=== PATIENT | male | born 1950 | race Caucasian/White ===

== ENCOUNTER → 2016-07-13 | Outpatient (CLI) | payer MEDICARE, OTHER ==
[~2016-07-13] MED LIST: FURO20TA PO; HYDR7.5T PO; LEVO200T46 PO; OME20GT; POTA20TA24 PO; PREDPOW63 PO; RIVA20TA PO; [UNRECOGNIZED DRUG - OTHER] PO
[2016-07-13 08:40] LABS: Basophils # (auto) 0 uL; Eosinophils # (auto) 0 uL; Eosinophils % (auto) 0.1 % (0.0-7.0); Hematocrit 35.3 % (41.0-53.0); Hemoglobin 11.6 g/dL (13.5-17.5); Lymphocytes # (auto) 0.9 uL; Lymphocytes % (auto) 8.2 % (10.0-50.0); Mean Corpuscular Hemoglobin 27.3 pg (28.0-32.0); Mean Corpuscular Hgb Conc. 32.8 g/dL (32.0-36.0); Mean Corpuscular Volume 83.1 fL (80.0-100.0); Mean Platelet Volume 7.4 fL (7.4-10.4); Monocytes # (auto) 0.4 uL; Monocytes % (auto) 3.9 % (0.0-12.0); Neutrophils # (auto) 9.2 uL; Neutrophils % (auto) 87.8 % (37.0-80.0); Platelet Count (auto) 297 10^3/uL (140-450); Red Cell Distribution Width 14.9 % (11.6-16.0); White Blood Cell 10.5 10^3/uL (4.4-10.8)
[2016-07-13 10:06] LABS: Albumin 3.8 g/dL (3.4-5.0); BUN/Creatinine Ratio 19.5; Bilirubin, Total 0.3 mg/dL (0.2-1.0); Calcium 8.5 mg/dL (8.5-10.1); Total Protein 7.1 g/dL (6.4-8.2)
== END | disposition home or self-care (01) ==
LOC: LAB 08:00
PROVIDERS: ATTEND Internal Medicine
DX: C18.0 Malignant neoplasm of cecum (principal)
CPT/HCPCS: 36415; 80053; 82728; 83036; 83540; 83615; 85025; 85049

== ENCOUNTER → 2016-08-25 | Outpatient (CLI) | payer BC, MEDICARE | END | disposition home or self-care (01) | LOC: Rad HDHVI 08:35 | PROVIDERS: ATTEND Internal Medicine Cardiovascular Disease | DX: I70.0 Atherosclerosis of aorta (principal); I10 Essential (primary) hypertension; R06.02 Shortness of breath; Z79.01 Long term (current) use of anticoagulants; Z86.711 Personal history of pulmonary embolism; R03.0 Elevated blood-pressure reading, without diagnosis of hypertension | CPT/HCPCS: 93970 ==

== ENCOUNTER → 2016-10-14 | Outpatient (CLI) | payer BC, MEDICARE ==
[~2016-10-14] MED LIST changes: +CYANOCOBALAMIN (B-12) 1000 MCG/1 ML VIAL ONE
[2016-10-14 14:55] VITALS: BP 149/78
[2016-10-14 15:30] VITALS: BP 140/76
[2016-10-14 16:21] LABS: Basophils # (auto) 0 uL; Eosinophils # (auto) 0 uL; Eosinophils % (auto) 0.5 % (0.0-7.0); Hematocrit 34.8 % (41.0-53.0); Hemoglobin 11.5 g/dL (13.5-17.5); Lymphocytes # (auto) 0.6 uL; Lymphocytes % (auto) 7.6 % (10.0-50.0); Mean Corpuscular Hemoglobin 27.4 pg (28.0-32.0); Mean Corpuscular Hgb Conc. 33.1 g/dL (32.0-36.0); Mean Corpuscular Volume 82.6 fL (80.0-100.0); Monocytes # (auto) 0.4 uL; Monocytes % (auto) 5.1 % (0.0-12.0); Neutrophils # (auto) 7.4 uL; Neutrophils % (auto) 86.8 % (37.0-80.0); Platelet Count (auto) 192 10^3/uL (140-450); Red Cell Distribution Width 15.8 % (11.6-16.0); White Blood Cell 8.5 10^3/uL (4.4-10.8)
== END | disposition home or self-care (01) ==
LOC: CHF HDHVI 14:53
PROVIDERS: ATTEND Internal Medicine Cardiovascular Disease
DX: D64.9 Anemia, unspecified (principal); R97.20 Elevated prostate specific antigen [PSA]
CPT/HCPCS: 36415; 84153; 85025; 86301

== ENCOUNTER → 2016-11-02 | Outpatient (CLI) | payer BC, MEDICARE ==
[~2016-11-02] MED LIST changes: -CYANOCOBALAMIN (B-12) 1000 MCG/1 ML VIAL ONE
[2016-11-02 10:37] LABS: INR 2.5 (0.7-1.3); Prothrombin Time 29.5 sec (9.0-12.0)
== END | disposition home or self-care (01) ==
LOC: LAB 10:14
PROVIDERS: ATTEND Internal Medicine Cardiovascular Disease
DX: R79.1 Abnormal coagulation profile (principal)
CPT/HCPCS: 85610

== ENCOUNTER → 2016-11-15 | Outpatient (CLI) | payer BC, MEDICARE ==
[2016-11-15 13:13] LABS: Basophils # (auto) 0 uL; Eosinophils # (auto) 0 uL; Hematocrit 38.1 % (41.0-53.0); Hemoglobin 12.7 g/dL (13.5-17.5); Lymphocytes # (auto) 0.6 uL; Lymphocytes % (auto) 5.2 % (10.0-50.0); Mean Corpuscular Hemoglobin 27.8 pg (28.0-32.0); Mean Corpuscular Hgb Conc. 33.5 g/dL (32.0-36.0); Mean Corpuscular Volume 83.1 fL (80.0-100.0); Mean Platelet Volume 7.8 fL (7.4-10.4); Monocytes # (auto) 0.3 uL; Monocytes % (auto) 2.6 % (0.0-12.0); Neutrophils # (auto) 9.9 uL; Neutrophils % (auto) 92.2 % (37.0-80.0); Platelet Count (auto) 253 10^3/uL (140-450); Red Cell Distribution Width 15.8 % (11.6-16.0); White Blood Cell 10.8 10^3/uL (4.4-10.8)
[2016-11-15 13:30] LABS: Albumin 3.7 g/dL (3.4-5.0); Bilirubin, Total 0.5 mg/dL (0.2-1.0); Calcium 8.8 mg/dL (8.5-10.1); Potassium 4.1 mmol/L (3.5-5.1); Total Protein 7.5 g/dL (6.4-8.2)
[2016-11-15 13:34] LABS: Temperature: 24.3 C (20.0-25.0)
[2016-11-15 14:15] LABS: Reticulocyte Count 2.37 % (0.5-1.5)
[2016-11-15 14:42] LABS: Wright Stain Ready for Review
== END | disposition home or self-care (01) ==
LOC: LAB 11:59
PROVIDERS: ATTEND Internal Medicine
DX: C18.9 Malignant neoplasm of colon, unspecified (principal)
CPT/HCPCS: 36415; 80053; 82607; 82728; 82746; 83010; 83540; 83550; 83615; 84439; 84443; 85025; 85045; 85652; 86880; 86885

== ENCOUNTER → 2017-03-01 | Outpatient (CLI) | payer BC, MEDICARE ==
[2017-03-01 14:43] LABS: Basophils # (auto) 0 uL; Basophils % (auto) 0.5 % (0.0-2.0); CONDITION Y; Eosinophils # (auto) 0.1 uL; Eosinophils % (auto) 0.9 % (0.0-7.0); Hematocrit 36.8 % (41.0-53.0); Hemoglobin 12.4 g/dL (13.5-17.5); Lymphocytes # (auto) 1.6 uL; Lymphocytes % (auto) 25.3 % (10.0-50.0); Mean Corpuscular Hemoglobin 28.5 pg (28.0-32.0); Mean Corpuscular Hgb Conc. 33.8 g/dL (32.0-36.0); Mean Corpuscular Volume 84.3 fL (80.0-100.0); Monocytes # (auto) 0.5 uL; Monocytes % (auto) 7.9 % (0.0-12.0); Neutrophils # (auto) 4.2 uL; Neutrophils % (auto) 65.4 % (37.0-80.0); Platelet Count (auto) 253 10^3/uL (140-450); White Blood Cell 6.4 10^3/uL (4.4-10.8)
[2017-03-01 15:10] LABS: Albumin 3.6 g/dL (3.4-5.0); BUN/Creatinine Ratio 26.7; Bilirubin, Total 0.3 mg/dL (0.2-1.0); Calcium 8.3 mg/dL (8.5-10.1); Potassium 3.9 mmol/L (3.5-5.1)
== END | disposition home or self-care (01) ==
LOC: LAB 13:43
PROVIDERS: ATTEND Internal Medicine
DX: C18.9 Malignant neoplasm of colon, unspecified (principal); E03.9 Hypothyroidism, unspecified
CPT/HCPCS: 36415; 80053; 83615; 84260; 84439; 84443; 85025

== ENCOUNTER → 2017-06-28 | Outpatient (CLI) | payer BC, MEDICARE ==
[2017-06-28 12:55] VITALS: BP 112/59
== END | disposition home or self-care (01) ==
LOC: Rad HDHVI 14:11
PROVIDERS: ATTEND Internal Medicine Cardiovascular Disease
DX: I10 Essential (primary) hypertension (principal); R06.02 Shortness of breath
CPT/HCPCS: G0463

== ENCOUNTER → 2017-07-13 | Outpatient (CLI) | payer BC, MEDICARE ==
[~2017-07-13] MED LIST changes: +ONDANSETRON HCL 4 MG/2 ML VIAL IV ONE; +ONDANSETRON HCL 4 MG/2 ML VIAL ONE; +SODIUM CHLORIDE 0.9% 1,000 ML IV ONE
[2017-07-13 15:10] VITALS: BP 119/78
== END | disposition home or self-care (01) ==
LOC: CHF HDHVI 12:45
PROVIDERS: ATTEND Internal Medicine Cardiovascular Disease
DX: I50.9 Heart failure, unspecified (principal); I10 Essential (primary) hypertension
CPT/HCPCS: 96360; 96361; 96375; G0463; J2405; 96366; 96374

== ENCOUNTER → 2017-07-15 | Outpatient (CLI) | payer BC, MEDICARE ==
[~2017-07-15] MED LIST changes: -ONDANSETRON HCL 4 MG/2 ML VIAL IV ONE; -ONDANSETRON HCL 4 MG/2 ML VIAL ONE; -SODIUM CHLORIDE 0.9% 1,000 ML IV ONE
== END | disposition home or self-care (01) ==
LOC: CHF HDHVI 12:22
PROVIDERS: ATTEND Internal Medicine Cardiovascular Disease
DX: R79.1 Abnormal coagulation profile (principal)

== ENCOUNTER 2017-10-20 19:25 | Inpatient (IN) | payer BC, MEDICARE ==
[~2017-10-20] VITALS: Ht 172.7 cm; Wt 107.7 kg
[2017-10-20 20:17] LABS: Basophils # (auto) 0 uL; Basophils % (auto) 0.2 % (0.0-2.0); Eosinophils # (auto) 0 uL; Eosinophils % (auto) 0.1 % (0.0-7.0); Hematocrit 40.7 % (41.0-53.0); Hemoglobin 13.8 g/dL (13.5-17.5); Lymphocytes # (auto) 0.9 uL; Lymphocytes % (auto) 5.8 % (10.0-50.0); Mean Corpuscular Hemoglobin 29.3 pg (28.0-32.0); Mean Corpuscular Hgb Conc. 33.8 g/dL (32.0-36.0); Mean Corpuscular Volume 86.8 fL (80.0-100.0); Monocytes # (auto) 1.5 uL; Monocytes % (auto) 10.1 % (0.0-12.0); Neutrophils # (auto) 12.6 uL; Neutrophils % (auto) 83.8 % (37.0-80.0); Nucleated Red Blood Cells % 0.1 %; Platelet Count (auto) 219 10^3/uL (140-450); Red Blood Cells 4.69 10^6/uL (4.5-5.90); Red Cell Distribution Width 15.3 % (11.8-14.3)
[2017-10-20 20:33] LABS: BUN/Creatinine Ratio 20.3; Potassium 3.9 mmol/L (3.5-5.1)
[2017-10-20 20:35] LABS: Albumin 2.7 g/dL (3.4-5.0); Bilirubin, Total 1.8 mg/dL (0.2-1.0); Total Protein 7.7 g/dL (6.4-8.2)
[2017-10-20 20:37] LABS: Lactic Acid w/Reflex 2.3 mmol/L (0.4-2.0)
[2017-10-20] MEDS ORDERED: IOHEXOL 350 MG/ML 100ML IJ ONE (20:54)
[2017-10-20] MEDS ORDERED: DILTIAZEM HCL 25 MG/5 ML VIAL IV ONE (21:00)
[2017-10-20] MEDS ORDERED: ACETAMINOPHEN 650 mg PER 20 mL UD PO ONE (21:00)
[2017-10-20] MEDS ORDERED: LEVOFLOXACIN 750MG 150 ML IV ONE (21:00)
[2017-10-20] MEDS ORDERED: SODIUM CHLORIDE 0.9% 3,000 ML IV ONE (21:00)
[2017-10-20] MEDS ORDERED: MORPHINE SULFATE 8mg/ml INJ SDV IV ONE (21:15)
[2017-10-20] MEDS ORDERED: ONDANSETRON HCL 4 MG/2 ML VIAL IV ONE (21:15)
[2017-10-20 21:26] LABS: INR 1.59 (0.9-1.15); Partial Thromboplastin Time 39.9 sec (22.64-33.71); Prothrombin Time 17.4 sec (9.37-12.3)
[2017-10-20 21:27] LABS: Magnesium 2.6 mg/dL (1.6-2.6)
[2017-10-20] MEDS ORDERED: LORazepam 2MG/ML-1ML VIAL IV ONE (21:45)
[2017-10-20] MEDS ORDERED: METOPROLOL TARTRATE 1MG/1ML-5ML VIAL IV ONE (23:15)
[2017-10-21] MEDS ORDERED: NITROGLYCERIN 0.4 MG SL TAB SL PRN (01:00)
[2017-10-21] MEDS ORDERED: ACETAMINOPHEN 500 MG TAB PO PRN (01:00)
[2017-10-21] MEDS ORDERED: MORPHINE SULFATE 8mg/ml INJ SDV IV PRN (01:00)
[2017-10-21 02:20] VITALS: BP 147/78
[2017-10-21] MEDS: ONDANSETRON HCL 4 MG/2 ML VIAL IV PRN ×3 (02:42→12:35)
[2017-10-21] MEDS: MORPHINE SULFATE 8mg/ml INJ SDV IV PRN ×3 (02:43→12:36)
[2017-10-21] MEDS ORDERED: ACETAMINOPHEN 325 MG TAB PO PRN ×2 (03:45→05:45)
[2017-10-21 04:30] LABS: Amylase 120 U/L (25-115); Lipase 134 U/L (73-393)
[2017-10-21 05:14] VITALS: BP 147/78
[2017-10-21] MEDS: SODIUM CHLORIDE 0.9% 1,000 ML IV SCH ×2 (05:14→17:05)
[2017-10-21] MEDS: GABAPENTIN 300 MG CAP PO SCH ×3 (05:20→22:20)
[2017-10-21 05:25] LABS: Urine Bacteria NONE SEEN /hpf (None Seen); Urine Blood 2+ /uL (Negative); Urine WBC 1 /hpf (0 - 3)
[2017-10-21 05:29] LABS: Urine Specific Gravity > 1.050 (1.001-1.035)
[2017-10-21 06:15] LABS: Basophils # (auto) 0 uL; Basophils % (auto) 0.1 % (0.0-2.0); Eosinophils # (auto) 0 uL; Eosinophils % (auto) 0.2 % (0.0-7.0); Hematocrit 34.7 % (41.0-53.0); Hemoglobin 11.5 g/dL (13.5-17.5); Lymphocytes # (auto) 0.8 uL; Lymphocytes % (auto) 5.9 % (10.0-50.0); Mean Corpuscular Hemoglobin 28.8 pg (28.0-32.0); Mean Corpuscular Hgb Conc. 33.1 g/dL (32.0-36.0); Mean Corpuscular Volume 87.1 fL (80.0-100.0); Monocytes # (auto) 1.2 uL; Monocytes % (auto) 9.2 % (0.0-12.0); Neutrophils # (auto) 11.2 uL; Neutrophils % (auto) 84.6 % (37.0-80.0); Platelet Count (auto) 187 10^3/uL (140-450); Red Blood Cells 3.98 10^6/uL (4.5-5.90); Red Cell Distribution Width 15.3 % (11.8-14.3); White Blood Cell 13.3 10^3/uL (4.4-10.8)
[2017-10-21 06:29] LABS: BUN/Creatinine Ratio 20.4; Potassium 4.8 mmol/L (3.5-5.1)
[2017-10-21] MEDS ORDERED: TAMS0.4C36 PO (06:49)
[2017-10-21] MEDS ORDERED: GABA-339 PO (06:49)
[2017-10-21] MEDS ORDERED: WARF3TAB22 PO (06:49)
[2017-10-21] MEDS ORDERED: AMIT10TA6 PO (06:49)
[2017-10-21] MEDS ORDERED: FURO20TA PO (06:49)
[2017-10-21] MEDS ORDERED: AZIT250T7 PO (06:49)
[2017-10-21] MEDS ORDERED: LEVO200T45 PO (06:49)
[2017-10-21] MEDS ORDERED: WARF4TAB33 PO (06:49)
[2017-10-21] MEDS ORDERED: LEVO25TA6 PO (06:49)
[2017-10-21 08:00] VITALS: BP 131/66
[2017-10-21 09:00] VITALS: BP 104/63
[2017-10-21] MEDS ORDERED: cefTRIAXone 1GM/10ml IVPUSH 10 ML IV SCH (09:00)
[2017-10-21] MEDS: FUROSEMIDE 40 MG TAB PO SCH (09:02)
[2017-10-21] MEDS: METOPROLOL TARTRATE 50 MG TAB PO SCH ×2 (09:03→22:20)
[2017-10-21] MEDS: BENAZEPRIL HCL 10 MG TAB PO SCH (09:05)
[2017-10-21] MEDS ORDERED: COLCHICINE 0.6 MG TAB PO ONE ×2 (09:30→10:30)
[2017-10-21] MEDS ORDERED: AZITHROMYCIN 500MG/ 250ML 250 ML IV SCH (10:00)
[2017-10-21 10:31] LABS: INR 1.42 (0.9-1.15); Partial Thromboplastin Time 43.7 sec (22.64-33.71); Prothrombin Time 15.5 sec (9.37-12.3)
[2017-10-21] MEDS: ENOXAPARIN SOD 40 MG/0.4 ML SYRINGE SC SCH (10:36)
[2017-10-21] MEDS: HYDROcodone-ACET 5/325MG TAB PO PRN ×2 (11:25→22:50)
[2017-10-21] MEDS ORDERED: OPTISON 3ml Vial for INJ IV ONE (12:17)
[2017-10-21 17:00] VITALS: BP 113/65
[2017-10-21] MEDS ORDERED: WARFARIN SODIUM 5 MG TAB PO ONE (17:00)
[2017-10-21] MEDS: HYDROmorphone HCL 2 MG/ML VL IV PRN (17:09)
[2017-10-21 22:00] VITALS: BP 120/73
[2017-10-21] MEDS: COLCHICINE 0.6 MG TAB PO SCH (22:00)
[2017-10-21] MEDS ORDERED: LEVOFLOXACIN 750MG 150 ML IV SCH (22:00)
[2017-10-21] MEDS: AMITRIPTYLINE HCL 10 MG TAB PO SCH (22:21)
[2017-10-22] VITALS (7 sets, daily range): BP systolic 98–130; BP diastolic 54–75
[2017-10-22] MEDS: HYDROmorphone HCL 2 MG/ML VL IV PRN ×3 (01:07→19:20)
[2017-10-22] MEDS: HYDROcodone-ACET 5/325MG TAB PO PRN ×4 (04:25→23:25)
[2017-10-22 05:55] LABS: Basophils # (auto) 0 uL; Basophils % (auto) 0.1 % (0.0-2.0); Eosinophils # (auto) 0.2 uL; Eosinophils % (auto) 1.6 % (0.0-7.0); Hematocrit 33.3 % (41.0-53.0); Hemoglobin 11.1 g/dL (13.5-17.5); Lymphocytes # (auto) 0.8 uL; Lymphocytes % (auto) 8.1 % (10.0-50.0); Mean Corpuscular Hemoglobin 29.3 pg (28.0-32.0); Mean Corpuscular Hgb Conc. 33.3 g/dL (32.0-36.0); Mean Corpuscular Volume 88.2 fL (80.0-100.0); Monocytes # (auto) 0.7 uL; Monocytes % (auto) 6.4 % (0.0-12.0); Neutrophils # (auto) 8.6 uL; Neutrophils % (auto) 83.8 % (37.0-80.0); Platelet Count (auto) 220 10^3/uL (140-450); Red Blood Cells 3.77 10^6/uL (4.5-5.90); Red Cell Distribution Width 15.1 % (11.8-14.3); White Blood Cell 10.3 10^3/uL (4.4-10.8)
[2017-10-22 06:07] LABS: Calcium 8.3 mg/dL (8.5-10.1); INR 1.54 (0.9-1.15); Potassium 4.1 mmol/L (3.5-5.1); Prothrombin Time 16.9 sec (9.37-12.3)
[2017-10-22 06:12] LABS: BUN/Creatinine Ratio 22.7; Magnesium 2.4 mg/dL (1.6-2.6)
[2017-10-22] MEDS: LEVOTHYROXINE SODIUM 50 MCG TAB PO SCH (06:24)
[2017-10-22] MEDS: GABAPENTIN 300 MG CAP PO SCH ×3 (06:26→21:39)
[2017-10-22] MEDS: SODIUM CHLORIDE 0.9% 1,000 ML IV SCH (06:31)
[2017-10-22] MEDS: ENOXAPARIN SOD 40 MG/0.4 ML SYRINGE SC SCH (09:00)
[2017-10-22] MEDS: BENAZEPRIL HCL 10 MG TAB PO SCH (09:01)
[2017-10-22] MEDS: METOPROLOL TARTRATE 50 MG TAB PO SCH ×2 (09:01→21:27)
[2017-10-22] MEDS: COLCHICINE 0.6 MG TAB PO SCH ×3 (09:02→21:39)
[2017-10-22] MEDS: FUROSEMIDE 40 MG TAB PO SCH (09:02)
[2017-10-22] MEDS ORDERED: WARFARIN SODIUM 2 MG TAB PO ONE (17:00)
[2017-10-22] MEDS: AMITRIPTYLINE HCL 10 MG TAB PO SCH (21:39)
[2017-10-23] MEDS: HYDROmorphone HCL 2 MG/ML VL IV PRN ×3 (05:43→22:36)
[2017-10-23] MEDS: LEVOTHYROXINE SODIUM 50 MCG TAB PO SCH (05:53)
[2017-10-23] MEDS: GABAPENTIN 300 MG CAP PO SCH ×3 (05:53→21:12)
[2017-10-23 06:00] VITALS: BP 126/70
[2017-10-23] MEDS: HYDROcodone-ACET 5/325MG TAB PO PRN ×3 (06:21→16:41)
[2017-10-23 07:09] LABS: Basophils # (auto) 0 uL; Basophils % (auto) 0.3 % (0.0-2.0); Eosinophils # (auto) 0.2 uL; Eosinophils % (auto) 2.7 % (0.0-7.0); Hemoglobin 11.1 g/dL (13.5-17.5); Lymphocytes # (auto) 0.8 uL; Lymphocytes % (auto) 12.2 % (10.0-50.0); Mean Corpuscular Hemoglobin 28.6 pg (28.0-32.0); Mean Corpuscular Hgb Conc. 32.6 g/dL (32.0-36.0); Mean Corpuscular Volume 87.6 fL (80.0-100.0); Monocytes # (auto) 0.5 uL; Monocytes % (auto) 6.7 % (0.0-12.0); Neutrophils # (auto) 5.4 uL; Neutrophils % (auto) 78.1 % (37.0-80.0); Nucleated Red Blood Cells % 0.1 %; Platelet Count (auto) 238 10^3/uL (140-450); Red Blood Cells 3.88 10^6/uL (4.5-5.90); Red Cell Distribution Width 15.9 % (11.8-14.3); White Blood Cell 6.9 10^3/uL (4.4-10.8)
[2017-10-23 07:19] LABS: INR 1.48 (0.9-1.15); Prothrombin Time 16.2 sec (9.37-12.3)
[2017-10-23 07:32] LABS: Calcium 8.4 mg/dL (8.5-10.1); Magnesium 2.4 mg/dL (1.6-2.6)
[2017-10-23 07:55] LABS: Albumin 2.1 g/dL (3.4-5.0)
[2017-10-23 07:58] LABS: Bilirubin, Total 0.4 mg/dL (0.2-1.0); Total Protein 7.1 g/dL (6.4-8.2)
[2017-10-23 08:10] LABS: Bilirubin, Direct 0.1 mg/dL (0-0.2)
[2017-10-23] MEDS: COLCHICINE 0.6 MG TAB PO SCH ×2 (08:59→21:12)
[2017-10-23] MEDS: ENOXAPARIN SOD 40 MG/0.4 ML SYRINGE SC SCH (08:59)
[2017-10-23] MEDS: METOPROLOL TARTRATE 50 MG TAB PO SCH ×2 (08:59→21:32)
[2017-10-23] MEDS: FUROSEMIDE 40 MG TAB PO SCH (09:00)
[2017-10-23] MEDS: BENAZEPRIL HCL 10 MG TAB PO SCH (09:00)
[2017-10-23 09:09] VITALS: BP 130/66
[2017-10-23] MEDS: methylPREDNISolone SOD SUCC 40 MG/ML VL IV SCH ×2 (10:41→21:13)
[2017-10-23 12:30] VITALS: BP 113/69
[2017-10-23 17:20] VITALS: BP 132/76
[2017-10-23 20:00] VITALS: BP 123/70
[2017-10-23] MEDS: AMITRIPTYLINE HCL 10 MG TAB PO SCH (21:12)
[2017-10-23 21:38] VITALS: BP 123/70
[2017-10-24] MEDS: HYDROcodone-ACET 5/325MG TAB PO PRN ×5 (04:42→21:34)
[2017-10-24 05:47] VITALS: BP 141/80
[2017-10-24 05:54] LABS: INR 2.45 (0.9-1.15)
[2017-10-24] MEDS: GABAPENTIN 300 MG CAP PO SCH ×3 (06:52→21:28)
[2017-10-24] MEDS: LEVOTHYROXINE SODIUM 50 MCG TAB PO SCH (06:52)
[2017-10-24 08:31] VITALS: BP 118/74
[2017-10-24] MEDS: ENOXAPARIN SOD 40 MG/0.4 ML SYRINGE SC SCH (09:18)
[2017-10-24] MEDS: METOPROLOL TARTRATE 50 MG TAB PO SCH ×2 (09:19→21:28)
[2017-10-24] MEDS: methylPREDNISolone SOD SUCC 40 MG/ML VL IV SCH ×2 (09:19→21:28)
[2017-10-24] MEDS: BENAZEPRIL HCL 10 MG TAB PO SCH (09:19)
[2017-10-24] MEDS: FUROSEMIDE 40 MG TAB PO SCH (09:20)
[2017-10-24] MEDS: HYDROmorphone HCL 2 MG/ML VL IV PRN (10:50)
[2017-10-24 13:00] VITALS: BP 122/76
[2017-10-24 16:28] VITALS: BP 141/76
[2017-10-24] MEDS: COLCHICINE 0.6 MG TAB PO SCH (21:28)
[2017-10-24] MEDS: AMITRIPTYLINE HCL 10 MG TAB PO SCH (21:28)
[2017-10-24 22:00] VITALS: BP 142/74
[2017-10-25] MEDS: HYDROmorphone HCL 2 MG/ML VL IV PRN ×3 (02:16→19:45)
[2017-10-25 05:00] VITALS: BP 155/70
[2017-10-25] MEDS: LEVOTHYROXINE SODIUM 50 MCG TAB PO SCH (06:11)
[2017-10-25] MEDS: GABAPENTIN 300 MG CAP PO SCH ×3 (06:11→21:53)
[2017-10-25] MEDS: HYDROcodone-ACET 5/325MG TAB PO PRN ×5 (06:12→22:02)
[2017-10-25 07:27] LABS: INR 2.98 (0.9-1.15); Prothrombin Time 32.8 sec (9.37-12.3)
[2017-10-25 09:00] VITALS: BP 134/71
[2017-10-25] MEDS: ENOXAPARIN SOD 40 MG/0.4 ML SYRINGE SC SCH (10:04)
[2017-10-25] MEDS: methylPREDNISolone SOD SUCC 40 MG/ML VL IV SCH ×2 (10:04→21:52)
[2017-10-25] MEDS: COLCHICINE 0.6 MG TAB PO SCH ×2 (10:04→21:42)
[2017-10-25] MEDS: METOPROLOL TARTRATE 50 MG TAB PO SCH ×2 (10:10→21:52)
[2017-10-25] MEDS: BENAZEPRIL HCL 10 MG TAB PO SCH (10:10)
[2017-10-25] MEDS: FUROSEMIDE 40 MG TAB PO SCH (10:12)
[2017-10-25 13:00] VITALS: BP 155/80
[2017-10-25 16:42] VITALS: BP 155/77
[2017-10-25] MEDS: HYDROXYCHLOROQUINE SULFATE 200 MG TAB PO SCH (18:47)
[2017-10-25] MEDS: AMITRIPTYLINE HCL 10 MG TAB PO SCH (21:52)
[2017-10-25 22:00] VITALS: BP 142/76
[2017-10-26] MEDS: HYDROcodone-ACET 5/325MG TAB PO PRN ×4 (03:20→19:34)
[2017-10-26 05:00] VITALS: BP 146/65
[2017-10-26] MEDS: GABAPENTIN 300 MG CAP PO SCH ×3 (06:26→22:20)
[2017-10-26] MEDS: LEVOTHYROXINE SODIUM 50 MCG TAB PO SCH (06:27)
[2017-10-26] MEDS: HYDROmorphone HCL 2 MG/ML VL IV PRN ×3 (06:27→22:22)
[2017-10-26 06:49] LABS: INR 2.9 (0.9-1.15); Prothrombin Time 31.9 sec (9.37-12.3)
[2017-10-26 09:00] VITALS: BP 140/77
[2017-10-26] MEDS: COLCHICINE 0.6 MG TAB PO SCH ×2 (10:00→22:00)
[2017-10-26] MEDS: methylPREDNISolone SOD SUCC 40 MG/ML VL IV SCH ×2 (10:18→22:21)
[2017-10-26] MEDS: METOPROLOL TARTRATE 50 MG TAB PO SCH ×2 (10:19→22:00)
[2017-10-26] MEDS: FUROSEMIDE 40 MG TAB PO SCH (10:21)
[2017-10-26] MEDS: BENAZEPRIL HCL 10 MG TAB PO SCH (10:22)
[2017-10-26] MEDS: ENOXAPARIN SOD 40 MG/0.4 ML SYRINGE SC SCH (10:22)
[2017-10-26] MEDS: HYDROXYCHLOROQUINE SULFATE 200 MG TAB PO SCH (10:22)
[2017-10-26 13:00] VITALS: BP 141/74
[2017-10-26 17:00] VITALS: BP 154/83
[2017-10-26 22:00] VITALS: BP 150/73
[2017-10-26] MEDS: AMITRIPTYLINE HCL 10 MG TAB PO SCH (22:20)
[2017-10-27] MEDS: HYDROcodone-ACET 5/325MG TAB PO PRN ×5 (04:21→17:41)
[2017-10-27 05:00] VITALS: BP_SYST 125; BP_SYST 147; BP_DIAS 74; BP_DIAS 80
[2017-10-27] MEDS: GABAPENTIN 300 MG CAP PO SCH ×2 (06:25→14:32)
[2017-10-27] MEDS: HYDROmorphone HCL 2 MG/ML VL IV PRN ×2 (06:26→14:32)
[2017-10-27] MEDS: LEVOTHYROXINE SODIUM 50 MCG TAB PO SCH (06:26)
[2017-10-27 07:21] LABS: INR 2.54 (0.9-1.15)
[2017-10-27 09:00] VITALS: BP 142/82
[2017-10-27] MEDS: HYDROXYCHLOROQUINE SULFATE 200 MG TAB PO SCH (09:28)
[2017-10-27] MEDS: COLCHICINE 0.6 MG TAB PO SCH (09:31)
[2017-10-27] MEDS: FUROSEMIDE 40 MG TAB PO SCH (09:31)
[2017-10-27] MEDS: BENAZEPRIL HCL 10 MG TAB PO SCH (09:31)
[2017-10-27] MEDS: METOPROLOL TARTRATE 50 MG TAB PO SCH ×2 (09:31→09:36)
[2017-10-27] MEDS: ENOXAPARIN SOD 40 MG/0.4 ML SYRINGE SC SCH (09:32)
[2017-10-27] MEDS: methylPREDNISolone SOD SUCC 40 MG/ML VL IV SCH (09:32)
[2017-10-27 13:00] VITALS: BP 138/69
[2017-10-27 16:57] VITALS: BP 142/82
[2017-10-27 17:54] VITALS: BP 127/59
== END 2017-10-27 18:00 | disposition home or self-care (01) | DRG 871 ==
LOC: EDBD 19:25 → ER 19:25 → TELE 19:26 → TELE-WESTW 10-21 02:22
PROVIDERS: ADMIT Nurse Practitioner Family; ATTEND Internal Medicine Cardiovascular Disease
DX: A41.9 Sepsis, unspecified organism (principal); J18.9 Pneumonia, unspecified organism; R65.21 Severe sepsis with septic shock; G04.90 Encephalitis and encephalomyelitis, unspecified; D68.59 Other primary thrombophilia; I11.9 Hypertensive heart disease without heart failure; I48.91 Unspecified atrial fibrillation; I47.1 Supraventricular tachycardia; J44.0 Chronic obstructive pulmonary disease with (acute) lower respiratory infection; E03.9 Hypothyroidism, unspecified; R74.8 Abnormal levels of other serum enzymes; M51.17 Intervertebral disc disorders with radiculopathy, lumbosacral region; I77.6 Arteritis, unspecified; R70.0 Elevated erythrocyte sedimentation rate; N40.0 Benign prostatic hyperplasia without lower urinary tract symptoms; M48.061 Spinal stenosis, lumbar region without neurogenic claudication; M19.90 Unspecified osteoarthritis, unspecified site; M10.9 Gout, unspecified; Z79.01 Long term (current) use of anticoagulants; Z79.899 Other long term (current) drug therapy; Z86.711 Personal history of pulmonary embolism; Z86.718 Personal history of other venous thrombosis and embolism
CPT/HCPCS: 36415; 71045; 71275; 72148; 80048; 80053; 80076; 81001; 82150; 83605; 83690; 83735; 83880; 84443; 84484; 85025; 85379; 85610; 85652; 85730; 86225; 86235; 87040; 93005; 93306; 93970; 96361; 96365; 96375; 97110; 97116; 97530; J1956; J2270; J2405; Q9956

== ENCOUNTER → 2017-12-09 | Outpatient (CLI) | payer BC, MEDICARE ==
[~2017-12-09] MED LIST changes: +AMIT10TA6 PO; +AZIT250T7 PO; +GABA-339 PO; -HYDR7.5T PO; +LEVO200T45 PO; -LEVO200T46 PO; +LEVO25TA6 PO; -OME20GT; -POTA20TA24 PO; -PREDPOW63 PO; -RIVA20TA PO; +TAMS0.4C36 PO; +WARF3TAB22 PO; +WARF4TAB33 PO; -[UNRECOGNIZED DRUG - OTHER] PO
[2017-12-09 15:56] LABS: BUN/Creatinine Ratio 16.7; Calcium 8.7 mg/dL (8.5-10.1); Magnesium 2.2 mg/dL (1.6-2.6); Potassium 3.8 mmol/L (3.5-5.1)
== END | disposition home or self-care (01) ==
LOC: LAB 14:57
PROVIDERS: ATTEND Internal Medicine Cardiovascular Disease
DX: E83.40 Disorders of magnesium metabolism, unspecified (principal); I10 Essential (primary) hypertension; E03.9 Hypothyroidism, unspecified; Z79.01 Long term (current) use of anticoagulants
CPT/HCPCS: 36415; 80048; 83735; 85610

== ENCOUNTER → 2018-02-23 | Outpatient (CLI) | payer BC, MEDICARE ==
[2018-02-23 11:15] VITALS: BP 138/79
[2018-02-23 12:00] VITALS: BP 122/80
[2018-02-23 12:19] LABS: Basophils # (auto) 0 uL; Basophils % (auto) 0.1 % (0.0-2.0); Eosinophils # (auto) 0 uL; Eosinophils % (auto) 0.1 % (0.0-7.0); Hemoglobin 13.1 g/dL (13.5-17.5); Lymphocytes # (auto) 0.5 uL; Lymphocytes % (auto) 3.6 % (10.0-50.0); Mean Corpuscular Hemoglobin 27.9 pg (28.0-32.0); Mean Corpuscular Hgb Conc. 32.7 g/dL (32.0-36.0); Mean Corpuscular Volume 85.2 fL (80.0-100.0); Monocytes # (auto) 0.8 uL; Monocytes % (auto) 6.1 % (0.0-12.0); Neutrophils # (auto) 11.5 uL; Neutrophils % (auto) 90.1 % (37.0-80.0); Platelet Count (auto) 166 10^3/uL (140-450); Red Cell Distribution Width 15.7 % (11.8-14.3); White Blood Cell 12.7 10^3/uL (4.4-10.8)
[2018-02-23 12:40] LABS: Partial Thromboplastin Time 44.2 sec (23.78-33.04); Prothrombin Time 72.8 sec (9.27-12.13)
[2018-02-23 12:48] LABS: Albumin 3.7 g/dL (3.4-5.0); BUN/Creatinine Ratio 18.7; Bilirubin, Total 0.5 mg/dL (0.2-1.0); CRP High Sensitivity 0.15 mg/dL (< 0.3); Potassium 3.5 mmol/L (3.5-5.1); Total Protein 6.8 g/dL (6.4-8.2)
[2018-02-23 12:51] LABS: INR 7.63 (0.9-1.15)
[2018-02-23 13:00] LABS: % Iron Saturation 14.6 % (20-55)
[2018-02-23 13:17] LABS: Free T4 (Free Thyroxine) 1.83 ng/dL (0.89-1.76)
[2018-02-23 13:18] LABS: Free T3 3.05 pg/mL (2.3-4.2)
== END | disposition home or self-care (01) ==
LOC: LAB 11:01
PROVIDERS: ATTEND Internal Medicine Cardiovascular Disease
DX: S51.801A Unspecified open wound of right forearm, initial encounter (principal); E61.1 Iron deficiency; D64.9 Anemia, unspecified; R79.82 Elevated C-reactive protein (CRP); R70.0 Elevated erythrocyte sedimentation rate; E03.9 Hypothyroidism, unspecified; D51.9 Vitamin B12 deficiency anemia, unspecified; R79.1 Abnormal coagulation profile; I10 Essential (primary) hypertension; X58.XXXA Exposure to other specified factors, initial encounter; Y93.89 Activity, other specified; Y92.89 Other specified places as the place of occurrence of the external cause; Y99.8 Other external cause status; Z79.01 Long term (current) use of anticoagulants; Z79.899 Other long term (current) drug therapy
CPT/HCPCS: 36415; 80053; 82607; 83540; 83550; 84439; 84443; 84481; 85025; 85610; 85652; 85730; 86141; G0463

== ENCOUNTER → 2018-02-28 | Outpatient (CLI) | payer BC, MEDICARE ==
[~2018-02-28] VITALS: Ht 30.5 cm; Wt 0.5 kg
[2018-02-28 11:50] VITALS: BP 103/66
[2018-02-28 13:00] VITALS: BP 110/71
[2018-02-28 15:58] LABS: Urine Blood Negative /uL (Negative); Urine Specific Gravity 1.031 (1.001-1.035)
== END | disposition home or self-care (01) ==
LOC: Rad HDHVI 12:25
PROVIDERS: ATTEND Internal Medicine Cardiovascular Disease
DX: R06.02 Shortness of breath (principal); N39.0 Urinary tract infection, site not specified; I10 Essential (primary) hypertension; Z79.01 Long term (current) use of anticoagulants
CPT/HCPCS: 71046; 81003; 87086; G0463

== ENCOUNTER → 2018-03-03 | Outpatient (CLI) | payer BC, MEDICARE ==
[~2018-03-03] MED LIST changes: +CYANOCOBALAMIN (B-12) 1000 MCG/1 ML VIAL IM ONE; +CYANOCOBALAMIN (B-12) 1000 MCG/1 ML VIAL ONE; -LEVO200T45 PO; +LEVO200T7 PO
[2018-03-03 09:30] VITALS: BP 145/55
[2018-03-03 10:05] VITALS: BP 220/85
== END | disposition home or self-care (01) ==
LOC: CHF HDHVI 09:45
PROVIDERS: ATTEND Internal Medicine Cardiovascular Disease
DX: D51.9 Vitamin B12 deficiency anemia, unspecified (principal); I10 Essential (primary) hypertension; N39.0 Urinary tract infection, site not specified; E03.9 Hypothyroidism, unspecified
CPT/HCPCS: 85610; 96372; G0463; J3420

== ENCOUNTER → 2018-03-08 | Outpatient (CLI) | payer BC, MEDICARE ==
[~2018-03-08] MED LIST changes: -CYANOCOBALAMIN (B-12) 1000 MCG/1 ML VIAL IM ONE; -CYANOCOBALAMIN (B-12) 1000 MCG/1 ML VIAL ONE
== END | disposition home or self-care (01) ==
LOC: LAB 11:50
PROVIDERS: ATTEND Internal Medicine Cardiovascular Disease
DX: I67.2 Cerebral atherosclerosis (principal); G31.9 Degenerative disease of nervous system, unspecified; R79.1 Abnormal coagulation profile
CPT/HCPCS: 70450; 85610

== ENCOUNTER → 2018-03-15 | Outpatient (CLI) | payer BC, MEDICARE | END | disposition home or self-care (01) | LOC: LAB 11:34 | PROVIDERS: ATTEND Internal Medicine Cardiovascular Disease | DX: R79.1 Abnormal coagulation profile (principal) | CPT/HCPCS: 85610 ==

== ENCOUNTER → 2018-03-21 | Outpatient (CLI) | payer BC, MEDICARE ==
[~2018-03-21] VITALS: Ht 30.5 cm; Wt 0.5 kg
[~2018-03-21] MED LIST changes: +ACETAMINOPHEN 500 MG TAB PO ONE; +KETOROLAC TROMETH 60MG/2ML VIAL IM ONE; +MAGNESIUM SULFATE 1GM/100ML 100 ML IV ONE; +MVI in SODIUM CHLORIDE 0.9% 1,000 ML IVB ONE; +MVI in SODIUM CHLORIDE 0.9% 1,010 ML ONE; +POTASSIUM CHL 20 Meq TABLET PO ONE; +methylPREDNISolone SOD SUCC 40 MG/ML VL IV ONE; +methylPREDNISolone SOD SUCC 40 MG/ML VL ONE
[2018-03-21 14:28] LABS: Hematocrit 41.8 % (41.0-53.0); Hemoglobin 13.6 g/dL (13.5-17.5); Mean Corpuscular Hemoglobin 27.6 pg (28.0-32.0); Mean Corpuscular Hgb Conc. 32.4 g/dL (32.0-36.0); Mean Corpuscular Volume 85.2 fL (80.0-100.0); Platelet Count (auto) 204 10^3/uL (140-450); Red Blood Cells 4.91 10^6/uL (4.5-5.90); Red Cell Distribution Width 15.9 % (11.8-14.3); White Blood Cell 13.3 10^3/uL (4.4-10.8)
[2018-03-21 14:31] LABS: Basophils % (manual) 0 (0.0-2.0); Blast Cells 0; Eosinophils % (manual) 0 (0-7); Metamyelocytes % 0; Myelocytes % 0; Promyelocytes % 0; Reactive Lymphocytes 0
[2018-03-21] MEDS: KETOROLAC TROMETH 30 MG/ML 1ML VIAL IV PRN ×2 (14:37→16:23)
[2018-03-21 14:39] LABS: BUN/Creatinine Ratio 13.3; Calcium 8.2 mg/dL (8.5-10.1); Potassium 3.8 mmol/L (3.5-5.1)
[2018-03-21 14:41] LABS: INR 1.6 (0.9-1.15); Prothrombin Time 16.7 sec (9.27-12.13)
[2018-03-21 16:05] VITALS: BP 132/78
[2018-03-21 16:18] LABS: Band Neutrophils % (manual) 1; Lymphocytes % (manual) 10 (10.0-50.0); Monocytes % (manual) 11 (0-12)
== END | disposition home or self-care (01) ==
LOC: CHF HDHVI 13:22
PROVIDERS: ATTEND Internal Medicine Cardiovascular Disease
DX: D50.9 Iron deficiency anemia, unspecified (principal); R79.1 Abnormal coagulation profile; I10 Essential (primary) hypertension; E03.9 Hypothyroidism, unspecified; N39.0 Urinary tract infection, site not specified
CPT/HCPCS: 36415; 80048; 85007; 85027; 85610; 85652; 85730; 93005; 96365; 96366; 96372; 96375; G0463; J1885; J2920; J3411; J3475

== ENCOUNTER → 2018-04-19 | Outpatient (CLI) | payer BC, MEDICARE ==
[~2018-04-19] MED LIST changes: -ACETAMINOPHEN 500 MG TAB PO ONE; -KETOROLAC TROMETH 60MG/2ML VIAL IM ONE; -MAGNESIUM SULFATE 1GM/100ML 100 ML IV ONE; -MVI in SODIUM CHLORIDE 0.9% 1,000 ML IVB ONE; -MVI in SODIUM CHLORIDE 0.9% 1,010 ML ONE; -POTASSIUM CHL 20 Meq TABLET PO ONE; -methylPREDNISolone SOD SUCC 40 MG/ML VL IV ONE; -methylPREDNISolone SOD SUCC 40 MG/ML VL ONE
== END | disposition home or self-care (01) ==
LOC: LAB 14:49
PROVIDERS: ATTEND Internal Medicine Cardiovascular Disease
DX: R79.1 Abnormal coagulation profile (principal)
CPT/HCPCS: 85610

== ENCOUNTER 2018-08-28 12:46 | Emergency (ER) | payer BC, MEDICARE ==
[~2018-08-28] VITALS: Ht 188 cm; Wt 95.3 kg
[2018-08-28 13:37] VITALS: BP 145/101
[2018-08-28] MEDS ORDERED: ONDANSETRON ODT 4 MG TAB PO ONE (14:15)
[2018-08-28] MEDS ORDERED: HYDROmorphone HCL 2 MG/ML VL IM ONE (14:15)
[2018-08-28] MEDS ORDERED: MORPHINE SULFATE 4 MG/ML SYR/VIAL IM ONE (15:15)
== END 2018-08-28 16:39 | disposition home or self-care (01) ==
LOC: ER 13:03
DX: M48.56XD Collapsed vertebra, not elsewhere classified, lumbar region, subsequent encounter for fracture with routine healing (principal); I10 Essential (primary) hypertension; I48.91 Unspecified atrial fibrillation; M10.9 Gout, unspecified; Z79.2 Long term (current) use of antibiotics; Z86.711 Personal history of pulmonary embolism; Z79.899 Other long term (current) drug therapy
CPT/HCPCS: 72131; 99284; Q0162

== ENCOUNTER 2018-09-18 16:49 | Inpatient (IN) | payer BC, MEDICARE ==
[~2018-09-18] VITALS: Ht 188 cm; Wt 89.9 kg
[2018-09-18 21:42] LABS: Basophils # (auto) 0 uL; Basophils % (auto) 0.2 % (0.0-2.0); Eosinophils # (auto) 0 uL; Hematocrit 35.4 % (41.0-53.0); Hemoglobin 11.6 g/dL (13.5-17.5); Lymphocytes # (auto) 0.6 uL; Lymphocytes % (auto) 8.7 % (10.0-50.0); Mean Corpuscular Hgb Conc. 32.8 g/dL (32.0-36.0); Mean Corpuscular Volume 85.5 fL (80.0-100.0); Monocytes # (auto) 0.4 uL; Monocytes % (auto) 6.5 % (0.0-12.0); Neutrophils # (auto) 5.4 uL; Neutrophils % (auto) 84.6 % (37.0-80.0); Platelet Count (auto) 304 10^3/uL (140-450); Red Blood Cells 4.14 10^6/uL (4.5-5.90); Red Cell Distribution Width 16.2 % (11.8-14.3); White Blood Cell 6.4 10^3/uL (4.4-10.8)
[2018-09-18 21:54] LABS: Alanine Aminotransferase 16 U/L (16-61); Albumin 3.1 g/dL (3.4-5.0); Amylase 39 U/L (25-115); Anion Gap 10 (5-15); Blood Urea Nitrogen 33 mg/dL (7-18); Calcium 8.6 mg/dL (8.5-10.1); Carbon Dioxide 23 mmol/L (21-32); Chloride 108 mmol/L (98-107); Glucose 103 mg/dL (74-106); Lipase 134 U/L (73-393); Magnesium 2.4 mg/dL (1.6-2.6); Potassium 4.2 mmol/L (3.5-5.1); Sodium 141 mmol/L (136-145)
[2018-09-18 21:59] LABS: Alkaline Phosphatase 151 U/L (45-117); Aspartate Aminotransferase 15 U/L (15-37); BUN/Creatinine Ratio 32.7; Bilirubin, Total 0.5 mg/dL (0.2-1.0); GFR African American 94 mL/min; GFR Non-African American 78 mL/min; Total Protein 7.3 g/dL (6.4-8.2)
[2018-09-18] MEDS ORDERED: SODIUM CHLORIDE 0.9% 1,000 ML IV ONE (22:00)
[2018-09-18 22:03] LABS: INR 2.24 (0.9-1.15); Prothrombin Time 22.9 sec (9.27-12.13)
[2018-09-18] MEDS ORDERED: ONDANSETRON HCL 4 MG/2 ML VIAL IV ONE (22:30)
[2018-09-18] MEDS ORDERED: MORPHINE SULFATE 4 MG/ML SYR/VIAL IV ONE (22:30)
[2018-09-18] MEDS ORDERED: IOHEXOL 300 MG/ML 100ML BOTTLE IJ ONE (22:54)
[2018-09-18] MEDS ORDERED: HYDROcodone-ACET 7.5/325MG TAB PO ONE (23:45)
[2018-09-18] MEDS ORDERED: KETOROLAC TROMETH 30 MG/ML 1ML VIAL IV ONE (23:45)
[2018-09-19 00:05] LABS: Urine Bacteria MANY /hpf (None Seen); Urine Blood Negative /uL (Negative); Urine Mucus FEW (None Seen); Urine Specific Gravity 1.021 (1.001-1.035); Urine WBC 54 /hpf (0 - 3)
[2018-09-19 00:28] LABS: Amphetamine Screen, Urine NEGATIVE (NEGATIVE); Barbiturate Scree,Urine NEGATIVE (NEGATIVE); Benzodiazephine Screen, Urine NEGATIVE (NEGATIVE); Cannabinoid Screen, Urine POSITIVE (NEGATIVE); Cocaine Screen, Urine NEGATIVE (NEGATIVE); Opiate Scree,Urine POSITIVE (NEGATIVE); Phencyclidine Screen, Urine NEGATIVE (NEGATIVE)
[2018-09-19] MEDS ORDERED: HYDR200T36 PO (02:54)
[2018-09-19] MEDS ORDERED: PRED-559 PO (02:54)
[2018-09-19] MEDS ORDERED: BENA20TA14 PO (02:54)
[2018-09-19] MEDS ORDERED: HYDR-4072 PO (02:54)
[2018-09-19] MEDS ORDERED: ALLO100T PO (02:54)
[2018-09-19] MEDS ORDERED: CLO01T PO (02:54)
[2018-09-19] MEDS ORDERED: MET25T PO (02:54)
[2018-09-19] MEDS ORDERED: MORPHINE SULFATE 4 MG/ML SYR/VIAL IV PRN (05:15)
[2018-09-19] MEDS ORDERED: ACETAMINOPHEN 325 MG TAB PO PRN (05:15)
[2018-09-19] MEDS ORDERED: DILTIAZEM HCL 25 MG/5 ML VIAL IV ONE (05:30)
[2018-09-19] MEDS ORDERED: DIGOXIN (250MCG/ML) 2 ML AMPULE IV ONE (06:15)
[2018-09-19] MEDS: LEVOTHYROXINE SODIUM 50 MCG TAB PO SCH (07:13)
[2018-09-19] MEDS: ONDANSETRON HCL 4 MG/2 ML VIAL IV PRN ×3 (07:39→23:18)
[2018-09-19] MEDS: HYDROcodone-ACET 5/325MG TAB PO PRN ×4 (07:40→22:58)
[2018-09-19] MEDS: cefTRIAXone 1GM/50ML D5W 50 ML IV SCH (09:08)
[2018-09-19] MEDS: BENAZEPRIL HCL 10 MG TAB PO SCH (10:30)
[2018-09-19] MEDS: FAMOTIDINE 20 MG TAB PO SCH ×2 (10:30→22:58)
[2018-09-19] MEDS: METOPROLOL TARTRATE 25 MG TAB PO SCH ×2 (10:30→22:57)
[2018-09-19] MEDS: predniSONE 20 MG TAB PO SCH (10:30)
[2018-09-19] MEDS: HYDROXYCHLOROQUINE SULFATE 200 MG TAB PO SCH (10:30)
[2018-09-19] MEDS: ALLOPURINOL 100 MG TAB PO SCH (10:30)
--- NOTE | 2018-09-19 15:30 | NUR ---
Telemetry admit from ER JIMANABELA admitted to Telemetry unit after SBAR received. Patient oriented to Cindy Toure RN primary RN, [facility] unit, room 294, bed A, and unit policies regarding patient care and visiting hours. Patient now on continuous telemetry monitoring, tele box #9 and telemetry reading on arrival to unit is SR. Patient placed on bedside oxygen, weighed by bedscale and encouraged to call if they need something. All questions and concerns addressed, patient verbalized understanding. Note:
[2018-09-19 15:45] VITALS: BP 115/70
[2018-09-19 16:49] VITALS: BP 115/70
[2018-09-19 16:57] VITALS: BP 141/67
[2018-09-19] MEDS ORDERED: WARFARIN SODIUM 1 MG TAB PO ONE (17:00)
--- NOTE | 2018-09-19 18:59 | NUR ---
Dr Brandt paged and made aware pt's P 150s-160s. Made aware patient ambulated to bathroom because refused bedside commode. Dr made aware that patient was attempting to push to have a BM. Per pt hasn't had BM for [address] Brandt also made aware that pt did have some blood in the toilet. Per patient he has hemorrhoids and it is normal for him to have some bleeding. New orders received for Amiodarone 400 mg PO once, IV NS fluid bolus 500 mL. 300 mL of Magnesium citrate. Will inform incoming RN of orders received. Patient denies any chest pain, SOB, or any discomfort at this time. No s/s of distress noted.
--- NOTE | 2018-09-19 19:00 | NUR ---
Patient care and report handed off to Cecily BENITEZ. Made aware of pt's P 150-160s when ambulating and orders received per DR Brandt. No s/s of distress noted.
[2018-09-19] MEDS ORDERED: AMIODARONE HCL 200 MG TAB PO ONE (19:15)
[2018-09-19] MEDS ORDERED: MAGNESIUM CITRATE SOLUTION 300 ML BTL PO ONE (19:15)
[2018-09-19] MEDS ORDERED: SODIUM CHLORIDE 0.9% 500 ML IV ONE (19:15)
[2018-09-19 20:00] VITALS: BP 135/72
--- NOTE | 2018-09-19 21:00 | NUR ---
KIRSTY CALLED TO REPORT AFLUTTER HR 153. PATIENT IS ASYMPTOMATIC. PATIENT WAS SITTING ON COMMODE WHEN I WAS NOTIFIED. PATIENT DENIES CHEST PAIN AT THIS TIME. DR DUNLAP MADE AWARE.
--- NOTE | 2018-09-19 21:05 | NUR ---
RECEIVED ORDERS FROM GERMÁN GRAY.
[2018-09-19] MEDS ORDERED: METOPROLOL SUCCINATE XL 50 MG TAB PO ONE (21:15)
[2018-09-19 21:57] VITALS: BP 135/72
[2018-09-19] MEDS: AMITRIPTYLINE HCL 10 MG TAB PO SCH (22:00)
[2018-09-20] MEDS: HYDROcodone-ACET 5/325MG TAB PO PRN ×2 (03:43→08:30)
[2018-09-20] MEDS: ONDANSETRON HCL 4 MG/2 ML VIAL IV PRN ×4 (03:43→19:00)
[2018-09-20 04:57] VITALS: BP 146/85
[2018-09-20 06:44] LABS: INR 2.04 (0.9-1.15)
[2018-09-20] MEDS: LEVOTHYROXINE SODIUM 50 MCG TAB PO SCH (06:47)
[2018-09-20 08:57] VITALS: BP 119/73
[2018-09-20] MEDS: HYDROmorphone HCL 2 MG/ML VL IV PRN ×3 (09:36→19:00)
[2018-09-20] MEDS: cefTRIAXone 1GM/50ML D5W 50 ML IV SCH (10:50)
[2018-09-20] MEDS: predniSONE 20 MG TAB PO SCH (10:51)
[2018-09-20] MEDS: AMIODARONE HCL 200 MG TAB PO SCH (10:51)
[2018-09-20] MEDS: METOPROLOL TARTRATE 25 MG TAB PO SCH ×2 (10:52→22:26)
[2018-09-20] MEDS: ALLOPURINOL 100 MG TAB PO SCH (10:53)
[2018-09-20] MEDS: FAMOTIDINE 20 MG TAB PO SCH ×2 (10:53→22:27)
[2018-09-20] MEDS: BENAZEPRIL HCL 10 MG TAB PO SCH (10:53)
[2018-09-20] MEDS: HYDROXYCHLOROQUINE SULFATE 200 MG TAB PO SCH (10:55)
[2018-09-20 13:00] VITALS: BP 110/69
[2018-09-20 17:00] VITALS: BP 113/69
[2018-09-20] MEDS ORDERED: WARFARIN SODIUM 2 MG TAB PO ONE (17:00)
--- NOTE | 2018-09-20 20:18 | NUR ---
RECEIVED REPORT FROM DAY RN POC REVIEWED
--- NOTE | 2018-09-20 20:40 | NUR ---
ASSISTED PT TO BSC, RESP EVEN AND UNLABORED, PAIN MED GIVEN BEFORE CALLING FOR ASSISTANCE,PT BACK IN BED CALL LIGHT WITHIN REACH BED ALARM INTACT,
[2018-09-20 21:50] VITALS: BP 130/72
[2018-09-20] MEDS: AMITRIPTYLINE HCL 10 MG TAB PO SCH (22:00)
[2018-09-20] MEDS: TEMAZEPAM 15 MG CAP PO PRN (22:25)
[2018-09-21] MEDS: HYDROmorphone HCL 2 MG/ML VL IV PRN ×5 (03:56→20:23)
--- NOTE | 2018-09-21 04:30 | NUR ---
PT ASSISTED TO BSC WITH MAX ASSIST
[2018-09-21 05:46] VITALS: BP 146/81
[2018-09-21] MEDS: LEVOTHYROXINE SODIUM 50 MCG TAB PO SCH (06:57)
--- NOTE | 2018-09-21 07:00 | NUR ---
Opening Shift Note Assumed care of patient, awake and alert. No S/S of distress/SOB patients pain is an 8/10. Instructed on POC and to call for assist PRN, will continue to monitor for changes Q1hr and PRN.
--- NOTE | 2018-09-21 07:08 | NUR ---
REPORT GIVEN TO AM NURSE POC REVIEWED
[2018-09-21 08:00] VITALS: BP 134/77
[2018-09-21 08:08] LABS: INR 3.78 (0.9-1.15); Prothrombin Time 37.5 sec (9.27-12.13)
[2018-09-21] MEDS: ONDANSETRON HCL 4 MG/2 ML VIAL IV PRN ×4 (08:27→20:22)
[2018-09-21] MEDS: FAMOTIDINE 20 MG TAB PO SCH ×2 (08:28→21:37)
[2018-09-21] MEDS: BENAZEPRIL HCL 10 MG TAB PO SCH (08:28)
[2018-09-21] MEDS: HYDROXYCHLOROQUINE SULFATE 200 MG TAB PO SCH (08:28)
[2018-09-21] MEDS: METOPROLOL TARTRATE 25 MG TAB PO SCH ×2 (08:29→21:38)
[2018-09-21] MEDS: predniSONE 20 MG TAB PO SCH (08:29)
[2018-09-21] MEDS: ALLOPURINOL 100 MG TAB PO SCH (08:29)
[2018-09-21] MEDS: AMIODARONE HCL 200 MG TAB PO SCH (08:30)
--- NOTE | 2018-09-21 09:38 | NUR ---
Paged Dr. Brandt in regards to patients home medication.
[2018-09-21] MEDS: HYDROcodone-ACET 5/325MG TAB PO PRN ×3 (10:07→22:41)
[2018-09-21] MEDS: cefTRIAXone 1GM/50ML D5W 50 ML IV SCH (10:09)
[2018-09-21 12:00] VITALS: BP 114/73
[2018-09-21 16:00] VITALS: BP_SYST 131
[2018-09-21] MEDS ORDERED: cloNIDine HCL 0.1 MG TAB PO PRN ×2 (19:00→19:30)
--- NOTE | 2018-09-21 19:30 | NUR ---
OPENING NOTE REPORT RECEIVED FROM DAY SHIFT RN PATIENT IS RESTING IN BED, A/OX4, ABLE TO ANSWER ALL QUESTIONS APPROPRIATELY. FULL PHYSICAL ASSESSMENT DONE-SEE INTERVENTIONS. CORTÉS IN PLACE, DRAINING CLEAR YELLOW URINE TO GRAVITY. POC FOR TONIGHT DISCUSSED, ALL QUESTIONS ANSWERED. WILL MONITOR Q1H PRN THROUGHOUT SHIFT, CALL LIGHT WITHIN REACH.
[2018-09-21 19:50] LABS: Basophils # (auto) 0 uL; Basophils % (auto) 0.2 % (0.0-2.0); Eosinophils # (auto) 0 uL; Hematocrit 32.1 % (41.0-53.0); Hemoglobin 10.5 g/dL (13.5-17.5); Lymphocytes # (auto) 0.8 uL; Lymphocytes % (auto) 10.2 % (10.0-50.0); Mean Corpuscular Hemoglobin 27.6 pg (28.0-32.0); Mean Corpuscular Hgb Conc. 32.8 g/dL (32.0-36.0); Mean Corpuscular Volume 84.4 fL (80.0-100.0); Monocytes # (auto) 0.4 uL; Monocytes % (auto) 5.2 % (0.0-12.0); Neutrophils # (auto) 6.4 uL; Neutrophils % (auto) 84.4 % (37.0-80.0); Platelet Count (auto) 267 10^3/uL (140-450); Red Blood Cells 3.81 10^6/uL (4.5-5.90); Red Cell Distribution Width 15.6 % (11.8-14.3); White Blood Cell 7.6 10^3/uL (4.4-10.8)
[2018-09-21 19:51] LABS: Albumin 2.9 g/dL (3.4-5.0); Calcium 8.7 mg/dL (8.5-10.1); Potassium 4.2 mmol/L (3.5-5.1)
[2018-09-21 19:55] LABS: Bilirubin, Total 0.3 mg/dL (0.2-1.0); Total Protein 6.5 g/dL (6.4-8.2)
[2018-09-21] MEDS: AMITRIPTYLINE HCL 10 MG TAB PO SCH (21:38)
[2018-09-21] MEDS: TEMAZEPAM 15 MG CAP PO PRN (21:38)
[2018-09-21 21:58] VITALS: BP 138/74
[2018-09-22] MEDS: HYDROmorphone HCL 2 MG/ML VL IV PRN ×5 (04:02→22:25)
[2018-09-22] MEDS: ONDANSETRON HCL 4 MG/2 ML VIAL IV PRN ×2 (04:02→22:26)
[2018-09-22 05:30] VITALS: BP 128/70
[2018-09-22] MEDS: HYDROcodone-ACET 5/325MG TAB PO PRN (06:08)
[2018-09-22] MEDS: LEVOTHYROXINE SODIUM 50 MCG TAB PO SCH ×2 (06:09→06:15)
--- NOTE | 2018-09-22 06:15 | NUR ---
PATIENT REFUSED AM SYNTHROID PATIENT REFUSES SYNTHROID THIS MORNING AND STATES THAT HE ONLY TAKES 125MCG AT HOME, NOT 175MCG. PATIENT REFUSES THIS DOSE WILL HAVE ATTENDING CORRECT DOSE
[2018-09-22 07:00] LABS: Hematocrit 29.6 % (41.0-53.0); Hemoglobin 9.9 g/dL (13.5-17.5); Mean Corpuscular Hemoglobin 28.5 pg (28.0-32.0); Mean Corpuscular Hgb Conc. 33.5 g/dL (32.0-36.0); Platelet Count (auto) 238 10^3/uL (140-450); Red Blood Cells 3.48 10^6/uL (4.5-5.90); Red Cell Distribution Width 15.1 % (11.8-14.3); White Blood Cell 6.5 10^3/uL (4.4-10.8)
[2018-09-22 07:10] LABS: Prothrombin Time 48.8 sec (9.27-12.13)
--- NOTE | 2018-09-22 07:15 | NUR ---
CRITICAL VALUE INR OF 5.0 REPORTED BY LAB WILL ENDORSE TO DAY SHIFT RNDAMON
--- NOTE | 2018-09-22 07:25 | NUR ---
CLOSING NOTE REPORT ENDORSED TO DAY SHIFT RN DAMON PATIENT RESTING, NO S/S OF DISTRESS. RN MADE AWARE OF CRITICAL LAB VALUE CALL LIGHT WITHIN
--- NOTE | 2018-09-22 07:35 | NUR ---
Patient in bed, awake, on Giron catheter. With bedside commode.
[2018-09-22 07:56] LABS: Basophils % (manual) 0 (0.0-2.0); Blast Cells 0; Metamyelocytes % 0; Myelocytes % 0; Promyelocytes % 0; Reactive Lymphocytes 0
--- NOTE | 2018-09-22 08:00 | NUR ---
Informed Dr. Brandt that patient's INR = 5.00 critically high, patient stated he takes Synthroid 125 mcg, not 175 mcg.
--- NOTE | 2018-09-22 08:05 | NUR ---
Dr. Brandt ordered to inform the Pharmacy to hold Coumadin for three days, lower the dose of Synthroid to 125 mcg.
--- NOTE | 2018-09-22 08:29 | NUR ---
Patient stated his back pain level at 6 0r 7/10 at this time. Dilaudid IVP 1 mg given as ordered.
[2018-09-22] MEDS: cefTRIAXone 1GM/50ML D5W 50 ML IV SCH (08:33)
--- NOTE | 2018-09-22 08:58 | NUR ---
Patient sitting in bed, awake, talking to somebody on his cellphone. Walker provided.
[2018-09-22 09:00] VITALS: BP 128/72
--- NOTE | 2018-09-22 09:25 | NUR ---
Patient stated he checked his home medications and he takes Synthroid 225 mcg at home daily. Patient apologized he thought he takes Synthroid 125 mcg. Will inform the MD.
[2018-09-22] MEDS ORDERED: LEVOTHYROXINE SODIUM 25 MCG TAB PO SCH (10:00)
[2018-09-22] MEDS ORDERED: LEVOTHYROXINE SODIUM 50 MCG TAB PO SCH (10:00)
[2018-09-22] MEDS ORDERED: LEVOTHYROXINE SODIUM 100 MCG TAB PO SCH (10:36)
[2018-09-22] MEDS: FAMOTIDINE 20 MG TAB PO SCH ×2 (10:43→22:25)
[2018-09-22] MEDS: AMIODARONE HCL 200 MG TAB PO SCH (10:43)
[2018-09-22] MEDS: METOPROLOL TARTRATE 25 MG TAB PO SCH ×2 (10:43→22:24)
[2018-09-22] MEDS: BENAZEPRIL HCL 10 MG TAB PO SCH (10:45)
[2018-09-22] MEDS: HYDROXYCHLOROQUINE SULFATE 200 MG TAB PO SCH (10:45)
[2018-09-22] MEDS: ALLOPURINOL 100 MG TAB PO SCH (10:45)
[2018-09-22] MEDS: predniSONE 20 MG TAB PO SCH (10:45)
[2018-09-22 11:44] LABS: Band Neutrophils % (manual) 1; Eosinophils % (manual) 2 (0-7); Lymphocytes % (manual) 16 (10.0-50.0); Monocytes % (manual) 9 (0-12)
[2018-09-22 12:00] VITALS: BP 131/74
--- NOTE | 2018-09-22 12:08 | NUR ---
Patient stated he's in pain. Dilaudid not due at this time, patient refused [place] . Patient said he will wait for the Dilaudid when it's due.
--- NOTE | 2018-09-22 12:33 | NUR ---
Patient stated his back pain level at 6 to 7/10 at this time. Dilaudid 1 mg IVP given as ordered.
--- NOTE | 2018-09-22 13:45 | NUR ---
Hold the Coumadin for three days as ordered by Dr. Brandt.
--- NOTE | 2018-09-22 13:47 | NUR ---
Called Pharmacy. Spoke with Pharmacist Michelle that patient's Coumadin on hold for three days as ordered by Dr. Brandt.
--- NOTE | 2018-09-22 14:10 | NUR ---
Patient using a walker walking on the hallway.
--- NOTE | 2018-09-22 14:55 | NUR ---
NUTRITION ASSESSMENT NOTES Please refer to link notes of nutrition screen form filed under the intervention section of the plan of care for further details. Est. Needs: 2250 kcal to 2750 kcal (25-30 kcal/kgBW), 73 gms to 91 gms pro (0.8-1.0 gms/kgBW). Will continue to monitor pertinent labs and reassess nutrient need prn Thank you. Addendum: 09/22/18 at [address] Amended: Links added.
--- NOTE | 2018-09-22 16:53 | NUR ---
Patient stated his back pain level at /10 at this time. Dilaudid 1mg IVP given as ordered. came over.
[2018-09-22 16:58] VITALS: BP 146/94
--- NOTE | 2018-09-22 17:00 | NUR ---
Hold the Coumadin as ordered by Dr. Brandt. Pharmacy is aware.
--- NOTE | 2018-09-22 17:00 | NUR ---
Dr. Brandt made aware patient said he's taking Synthroid 225 mcg at home. MD ordered to adjust the dose to 225 mcg.
[2018-09-22] MEDS ORDERED: DEXTROSE (50%) 50ML SYRG IV PRN (17:15)
[2018-09-22] MEDS ORDERED: [UNRECOGNIZED DRUG - OTHER] SUBCUT ONE (21:00)
[2018-09-22 22:00] VITALS: BP 144/84
[2018-09-22] MEDS: InsuLIN REG 1unit/0.01ml Soln (100units/ml) SC SCH (22:00)
[2018-09-22] MEDS: AMITRIPTYLINE HCL 10 MG TAB PO SCH (22:00)
[2018-09-22] MEDS: ACCU-CHEK COMFORT CURVE STRIP VI SCH (22:26)
[2018-09-22] MEDS: TEMAZEPAM 15 MG CAP PO PRN (22:40)
[2018-09-22 23:26] VITALS: BP 129/84
[2018-09-23] MEDS: HYDROcodone-ACET 5/325MG TAB PO PRN ×3 (00:10→23:51)
[2018-09-23] MEDS: ONDANSETRON HCL 4 MG/2 ML VIAL IV PRN ×5 (04:53→22:10)
[2018-09-23] MEDS: HYDROmorphone HCL 2 MG/ML VL IV PRN ×5 (04:53→22:10)
[2018-09-23 05:18] VITALS: BP 127/52
[2018-09-23 05:25] VITALS: BP 135/76
[2018-09-23 05:56] LABS: Hematocrit 31.2 % (41.0-53.0); Hemoglobin 10.3 g/dL (13.5-17.5); Mean Corpuscular Hemoglobin 28.1 pg (28.0-32.0); Mean Corpuscular Hgb Conc. 33.1 g/dL (32.0-36.0); Mean Corpuscular Volume 84.9 fL (80.0-100.0); Platelet Count (auto) 254 10^3/uL (140-450); Red Blood Cells 3.67 10^6/uL (4.5-5.90); Red Cell Distribution Width 15.3 % (11.8-14.3); White Blood Cell 7.4 10^3/uL (4.4-10.8)
[2018-09-23 06:05] LABS: Band Neutrophils % (manual) 0; Basophils % (manual) 0 (0.0-2.0); Blast Cells 0; Eosinophils % (manual) 0 (0-7); Promyelocytes % 0; Reactive Lymphocytes 0
[2018-09-23 06:06] LABS: INR 3.63 (0.9-1.15); Prothrombin Time 36.1 sec (9.27-12.13)
[2018-09-23] MEDS ORDERED: LEVOTHYROXINE SODIUM 50 MCG TAB PO SCH (07:00)
[2018-09-23] MEDS: InsuLIN REG 1unit/0.01ml Soln (100units/ml) SC SCH ×4 (07:00→22:00)
[2018-09-23] MEDS: ACCU-CHEK COMFORT CURVE STRIP VI SCH ×4 (07:16→22:02)
[2018-09-23] MEDS: LEVOTHYROXINE SODIUM 50 MCG TAB PO SCH (07:16)
--- NOTE | 2018-09-23 08:00 | NUR ---
Opening Shift Note Assumed care of patient, awake, alert and oriented X4. No S/S of distress/SOB, complains of lower back pain, 01/03. Tele# 9, sinus rhythm @ 63 bpm. Left forearm, 20 gauge, patent and saline locked. Urethral Giron catheter draining clear, yellow urine to gravity. Instructed on POC and to call for assist PRN, verbalized understanding. Bed locked, in lowest position, call light within reach, will continue to monitor for changes Q1hr and PRN.
[2018-09-23 08:54] VITALS: BP 132/80
[2018-09-23] MEDS: cefTRIAXone 1GM/50ML D5W 50 ML IV SCH (09:00)
[2018-09-23 09:30] LABS: Lymphocytes % (manual) 13 (10.0-50.0); Metamyelocytes % 1; Monocytes % (manual) 4 (0-12); Myelocytes % 1
[2018-09-23] MEDS: HYDROXYCHLOROQUINE SULFATE 200 MG TAB PO SCH (10:24)
[2018-09-23] MEDS: AMIODARONE HCL 200 MG TAB PO SCH (10:24)
[2018-09-23] MEDS: FAMOTIDINE 20 MG TAB PO SCH ×2 (10:25→21:57)
[2018-09-23] MEDS: ALLOPURINOL 100 MG TAB PO SCH (10:25)
[2018-09-23] MEDS: predniSONE 20 MG TAB PO SCH (10:27)
[2018-09-23 13:00] VITALS: BP 140/79
[2018-09-23] MEDS: METOPROLOL TARTRATE 25 MG TAB PO SCH ×2 (15:40→21:58)
[2018-09-23] MEDS: BENAZEPRIL HCL 10 MG TAB PO SCH (15:40)
[2018-09-23 17:00] VITALS: BP 132/83
--- NOTE | 2018-09-23 19:30 | NUR ---
Opening Shift Note Assumed care of patient, awake and alert oriented x4. No S/S of distress/SOB noted, patient complains of having chronic back pain of 7/10. Tele # 9 in sinus rhythm. Bed is in lowest locked position with bed rails up x2 and call light is within reach of the patient. Instructed on POC and to call for assist PRN.
[2018-09-23] MEDS: AMITRIPTYLINE HCL 10 MG TAB PO SCH (22:00)
[2018-09-23 22:45] VITALS: BP 131/72
[2018-09-24] MEDS: ONDANSETRON HCL 4 MG/2 ML VIAL IV PRN (03:41)
[2018-09-24] MEDS: HYDROmorphone HCL 2 MG/ML VL IV PRN (03:46)
[2018-09-24 04:37] VITALS: BP 152/93
[2018-09-24 05:09] VITALS: BP 133/81
--- NOTE | 2018-09-24 05:10 | NUR ---
Blood pressure reassessed: Patients blood pressure was elevated this morning per [employer] vitals at 152/93 blood pressure, pulse 63. Reassessed blood pressure at 133/81 and pulse 55. No S/S of distress SOB noted. Patient is resting in bed with breaths even and unlabored and call light is within reach of the patient.
[2018-09-24 05:53] LABS: INR 2.84 (0.9-1.15); Prothrombin Time 28.6 sec (9.27-12.13)
[2018-09-24] MEDS: HYDROcodone-ACET 5/325MG TAB PO PRN (06:23)
[2018-09-24] MEDS: LEVOTHYROXINE SODIUM 50 MCG TAB PO SCH (06:26)
[2018-09-24] MEDS: ACCU-CHEK COMFORT CURVE STRIP VI SCH (06:27)
[2018-09-24] MEDS: InsuLIN REG 1unit/0.01ml Soln (100units/ml) SC SCH (06:37)
--- NOTE | 2018-09-24 08:00 | NUR ---
Opening Shift Note Assumed care of patient, awake, alert and oriented X4. No S/S of distress/SOB, complains of chronic low back pain 01/03. Tele# 36, sinus rhythm @ 64 bpm. IV to left forearm, 20 gauge, patent and saline locked. Urethral Giron catheter draining clear, yellow urine to gravity. Instructed on POC and to call for assist PRN, verbalized understanding. Bed locked, in lowest position, call light within reach, will continue to monitor for changes Q1hr and PRN.
[2018-09-24] MEDS: cefTRIAXone 1GM/50ML D5W 50 ML IV SCH (09:00)
[2018-09-24 09:16] VITALS: BP 120/60
[2018-09-24] MEDS: predniSONE 20 MG TAB PO SCH (09:44)
[2018-09-24] MEDS: METOPROLOL TARTRATE 25 MG TAB PO SCH (09:45)
[2018-09-24] MEDS: AMIODARONE HCL 200 MG TAB PO SCH (09:45)
[2018-09-24] MEDS: BENAZEPRIL HCL 10 MG TAB PO SCH (09:49)
[2018-09-24] MEDS: HYDROXYCHLOROQUINE SULFATE 200 MG TAB PO SCH (09:50)
[2018-09-24] MEDS: FAMOTIDINE 20 MG TAB PO SCH (09:50)
[2018-09-24] MEDS: ALLOPURINOL 100 MG TAB PO SCH (09:50)
[2018-09-24] MEDS ORDERED: HYDROcodone-ACET 10/325MG TAB PO PRN (11:45)
[2018-09-24 12:02] VITALS: BP 144/86
--- NOTE | 2018-09-24 14:04 | NUR ---
o/c note: Call for hospital bed for this pt from primary RN Melissa. Instructed for Melissa to fax to [facility] [phone], ph # is [phone]
[2018-09-24 16:34] VITALS: BP 144/86
--- NOTE | 2018-09-24 18:19 | NUR ---
Discharge instructions given as ordered. Encourage to follow up with PMD as instructed. All questions and concerns addressed. Patient verbalized understanding. Medication reconciliation form completed and copy given to patient. IV removed with catheter intact, pressure dressing applied, witt catheter removed. Telemetry unit returned to ICU. Patient taken to vehicle via wheelchair with all personal belongings, accompanied by staff and family member. No distress noted at time of departure.
== END 2018-09-24 18:30 | disposition home or self-care (01) | DRG 73 ==
LOC: ER 16:59 → TELE-WESTW 09-19 05:17
PROVIDERS: ADMIT Nurse Practitioner; ATTEND Internal Medicine Cardiovascular Disease
DX: M54.12 Radiculopathy, cervical region (principal); J96.90 Respiratory failure, unspecified, unspecified whether with hypoxia or hypercapnia; N39.0 Urinary tract infection, site not specified; E46 Unspecified protein-calorie malnutrition; I48.0 Paroxysmal atrial fibrillation; G89.29 Other chronic pain; N20.0 Calculus of kidney; K57.30 Diverticulosis of large intestine without perforation or abscess without bleeding; K40.20 Bilateral inguinal hernia, without obstruction or gangrene, not specified as recurrent; I10 Essential (primary) hypertension; D64.9 Anemia, unspecified; E86.9 Volume depletion, unspecified; I27.81 Cor pulmonale (chronic); J44.9 Chronic obstructive pulmonary disease, unspecified; T45.515A Adverse effect of anticoagulants, initial encounter; Y92.89 Other specified places as the place of occurrence of the external cause; Z86.711 Personal history of pulmonary embolism; Z95.828 Presence of other vascular implants and grafts; Z87.81 Personal history of (healed) traumatic fracture; Z68.25 Body mass index [BMI] 25.0-25.9, adult
CPT/HCPCS: 36415; 51702; 71045; 80053; 80307; 80320; 81001; 82150; 82962; 83605; 83690; 83735; 83880; 84484; 85007; 85025; 85027; 85379; 85610; 85730; 87040; 87086; 87088; 87186; 93005; 93306; 94761; 96365; 96375; 97163; G0378; J0696; J1885; J2405

== ENCOUNTER → 2018-10-24 | Outpatient (CLI) | payer BC, MEDICARE, OTHER ==
[~2018-10-24] MED LIST changes: +ALLO100T PO; +BENA20TA14 PO; +CLO01T PO; +HYDR-4072 PO; +HYDR200T36 PO; +MET25T PO; +PRED-559 PO
[2018-10-24 15:50] LABS: Basophils # (auto) 0 uL; Basophils % (auto) 0.5 % (0.0-2.0); Eosinophils # (auto) 0.2 uL; Eosinophils % (auto) 2.5 % (0.0-7.0); Hematocrit 35.9 % (41.0-53.0); Hemoglobin 11.8 g/dL (13.5-17.5); Lymphocytes # (auto) 0.9 uL; Lymphocytes % (auto) 13.3 % (10.0-50.0); Mean Corpuscular Hemoglobin 28.7 pg (28.0-32.0); Mean Corpuscular Volume 87.1 fL (80.0-100.0); Monocytes # (auto) 0.5 uL; Monocytes % (auto) 7.7 % (0.0-12.0); Neutrophils # (auto) 5.2 uL; Nucleated Red Blood Cells % 0.1 %; Platelet Count (auto) 240 10^3/uL (140-450); Red Blood Cells 4.12 10^6/uL (4.5-5.90); White Blood Cell 6.8 10^3/uL (4.4-10.8)
[2018-10-24 16:24] LABS: Calcium 9.1 mg/dL (8.5-10.1)
[2018-10-24 16:28] LABS: Albumin 3.5 g/dL (3.4-5.0); BUN/Creatinine Ratio 18.5; Bilirubin, Total 0.4 mg/dL (0.2-1.0); Total Protein 7.1 g/dL (6.4-8.2)
== END | disposition home or self-care (01) ==
LOC: LAB 15:05
PROVIDERS: ATTEND Internal Medicine
DX: C18.9 Malignant neoplasm of colon, unspecified (principal)
CPT/HCPCS: 36415; 80053; 83615; 84260; 84439; 84443; 85025

== ENCOUNTER → 2018-11-03 | Outpatient (CLI) | payer BC, MEDICARE ==
[2018-11-03 14:04] LABS: Protein, Urine 53.9 mg/dL (0.0-11.9)
[2018-11-03 14:12] LABS: 24 Hr. Total Protein, Urine 215.6 mg/24 Hr (<149.1)
== END | disposition home or self-care (01) ==
LOC: LAB 13:36
PROVIDERS: ATTEND Internal Medicine
DX: C18.9 Malignant neoplasm of colon, unspecified (principal)
CPT/HCPCS: 84156

== ENCOUNTER → 2019-01-02 | Outpatient (CLI) | payer BC, MEDICARE ==
[~2019-01-02] VITALS: Ht 188 cm; Wt 91.6 kg
[~2019-01-02] MED LIST changes: +ADENOSINE 77 MG in GIVE UN-DILUTED 0 ML IV ONE; +ADENOSINE 90 MG/30 ML INJ IV ONE; +FURO1TAB33 PO; -FURO20TA PO
== END | disposition home or self-care (01) ==
LOC: Rad HDHVI 13:14
PROVIDERS: ATTEND Internal Medicine Cardiovascular Disease
DX: S32.000A Wedge compression fracture of unspecified lumbar vertebra, initial encounter for closed fracture (principal); I82.409 Acute embolism and thrombosis of unspecified deep veins of unspecified lower extremity; I48.2 Chronic atrial fibrillation; I10 Essential (primary) hypertension; R06.02 Shortness of breath; R53.83 Other fatigue; Z79.52 Long term (current) use of systemic steroids; X58.XXXA Exposure to other specified factors, initial encounter; Y93.89 Activity, other specified; Y92.89 Other specified places as the place of occurrence of the external cause; Y99.8 Other external cause status
CPT/HCPCS: 78452; 93005; 93306; 96374; 96375; A9500; J0153

== ENCOUNTER → 2019-06-06 | Outpatient (CLI) | payer BC, MEDICARE ==
[~2019-06-06] MED LIST changes: -ADENOSINE 77 MG in GIVE UN-DILUTED 0 ML IV ONE; -ADENOSINE 90 MG/30 ML INJ IV ONE
== END | disposition home or self-care (01) ==
LOC: Rad HDHVI 15:20
PROVIDERS: ATTEND Internal Medicine Cardiovascular Disease
DX: I70.0 Atherosclerosis of aorta (principal); J98.11 Atelectasis; R79.1 Abnormal coagulation profile
CPT/HCPCS: 71046; 85610

== ENCOUNTER → 2019-12-10 | Outpatient (CLI) | payer BC, MEDICARE ==
[~2019-12-10] MED LIST changes: -AZIT250T7 PO; +AZIT250T9 PO
[2019-12-10 12:26] LABS: Basophils # (auto) 0 10 ^3/uL (0-0.2); Eosinophils # (auto) 0.2 10 ^3/uL (0-0.8); Hemoglobin 10.4 g/dL (13.5-17.5); Lymphocytes # (auto) 1.3 10 ^3/uL (0.4-5.4); Monocytes # (auto) 0.4 10 ^3/uL (0-1.3); White Blood Cell 5.4 10^3/uL (4.4-10.8)
[2019-12-10 12:29] LABS: Basophils % (auto) 0.6 % (0.0-2.0); Eosinophils % (auto) 4.1 % (0.0-7.0); Hematocrit 32.4 % (41.0-53.0); Lymphocytes % (auto) 24.1 % (10.0-50.0); Mean Corpuscular Hemoglobin 26.7 pg (28.0-32.0); Mean Corpuscular Hgb Conc. 32.3 g/dL (32.0-36.0); Mean Corpuscular Volume 82.7 fL (80.0-100.0); Monocytes % (auto) 7.1 % (0.0-12.0); Neutrophils # (auto) 3.5 10 ^3/uL (1.6-8.6); Neutrophils % (auto) 64.1 % (37.0-80.0); Platelet Count (auto) 170 10^3/uL (140-450); Red Blood Cells 3.91 10^6/uL (4.5-5.90); Red Cell Distribution Width 18.6 % (11.8-14.3)
[2019-12-10 12:32] LABS: BUN/Creatinine Ratio 18.4; Potassium 4.8 mmol/L (3.5-5.1)
== END | disposition home or self-care (01) ==
LOC: LAB 08:40
PROVIDERS: ATTEND Internal Medicine Cardiovascular Disease
DX: D64.9 Anemia, unspecified (principal); Z79.899 Other long term (current) drug therapy
CPT/HCPCS: 36415; 80048; 85025

== ENCOUNTER → 2020-05-21 | Outpatient (CLI) | payer OTHER, MEDICARE ==
[2020-05-21 12:05] LABS: Basophils # (auto) 0 10 ^3/uL (0-0.2); Basophils % (auto) 0.1 % (0.0-2.0); Eosinophils # (auto) 0 10 ^3/uL (0-0.8); Hematocrit 35.6 % (41.0-53.0); Hemoglobin 11.5 g/dL (13.5-17.5); Lymphocytes # (auto) 0.7 10 ^3/uL (0.4-5.4); Lymphocytes % (auto) 9.8 % (10.0-50.0); Mean Corpuscular Hemoglobin 27.3 pg (28.0-32.0); Mean Corpuscular Hgb Conc. 32.2 g/dL (32.0-36.0); Monocytes # (auto) 0.1 10 ^3/uL (0-1.3); Monocytes % (auto) 1.8 % (0.0-12.0); Neutrophils # (auto) 6.6 10 ^3/uL (1.6-8.6); Neutrophils % (auto) 88.3 % (37.0-80.0); Platelet Count (auto) 209 10^3/uL (140-450); Red Blood Cells 4.19 10^6/uL (4.5-5.90); Red Cell Distribution Width 16.1 % (11.8-14.3); White Blood Cell 7.4 10^3/uL (4.4-10.8)
[2020-05-21 12:12] LABS: Urine Blood Negative /uL (Negative)
[2020-05-21 12:17] LABS: Potassium 4.6 mmol/L (3.5-5.1)
[2020-05-21 12:26] LABS: Albumin 3.5 g/dL (3.4-5.0); BUN/Creatinine Ratio 19.3; Bilirubin, Total 0.4 mg/dL (0.2-1.0); Calcium 8.4 mg/dL (8.5-10.1); Free T4 (Free Thyroxine) 0.62 ng/dL (0.89-1.76); Prostate Specific Antigen 1.98 ng/mL (0.0-4.0); Total Protein 6.8 g/dL (6.4-8.2)
[2020-05-21 12:29] LABS: Partial Thromboplastin Time 40.2 sec (23.0-31.2)
[2020-05-21 14:15] LABS: INR 4.17 (0.9-1.15)
== END | disposition home or self-care (01) ==
LOC: LAB 08:15
PROVIDERS: ATTEND Internal Medicine Cardiovascular Disease
DX: C61 Malignant neoplasm of prostate (principal); D51.3 Other dietary vitamin B12 deficiency anemia; I10 Essential (primary) hypertension; E11.9 Type 2 diabetes mellitus without complications; E55.9 Vitamin D deficiency, unspecified; D64.9 Anemia, unspecified; R00.2 Palpitations; R53.1 Weakness; R30.0 Dysuria; R79.1 Abnormal coagulation profile
CPT/HCPCS: 36415; 80053; 80061; 81003; 82306; 82607; 83036; 84153; 84403; 84439; 84443; 85025; 85610; 85730

== ENCOUNTER → 2020-07-25 | Outpatient (CLI) | payer OTHER, MEDICARE ==
[2020-07-25 11:57] VITALS: BP 169/97
[2020-07-25 12:31] VITALS: BP 173/86
== END | disposition home or self-care (01) ==
LOC: CHF HDHVI 11:02
PROVIDERS: ATTEND Internal Medicine Cardiovascular Disease
DX: S91.012A Laceration without foreign body, left ankle, initial encounter (principal); X58.XXXA Exposure to other specified factors, initial encounter; Y93.89 Activity, other specified; Y92.89 Other specified places as the place of occurrence of the external cause; Y99.8 Other external cause status
CPT/HCPCS: G0463

== ENCOUNTER → 2020-08-04 | Outpatient (CLI) | payer OTHER, MEDICARE | END | disposition home or self-care (01) | LOC: Rad HDHVI 11:06 | PROVIDERS: ATTEND Internal Medicine Cardiovascular Disease | DX: I82.409 Acute embolism and thrombosis of unspecified deep veins of unspecified lower extremity (principal); E78.5 Hyperlipidemia, unspecified | CPT/HCPCS: 93925 ==

== ENCOUNTER → 2020-09-17 | Outpatient (CLI) | payer OTHER, MEDICARE | END | disposition home or self-care (01) | LOC: LAB 11:02 | PROVIDERS: ATTEND Internal Medicine Cardiovascular Disease | DX: R79.1 Abnormal coagulation profile (principal) | CPT/HCPCS: 85610 ==

== ENCOUNTER → 2021-05-26 | Outpatient (CLI) | payer OTHER ==
[~2021-05-26] MED LIST changes: -AMIT10TA6 PO; +AMIT1TAB34 PO
[2021-05-26 11:49] LABS: Hematocrit 37.7 % (41.0-53.0); Hemoglobin 12.4 g/dL (13.5-17.5); Mean Corpuscular Hemoglobin 27.9 pg (28.0-32.0); Mean Corpuscular Volume 84.5 fL (80.0-100.0); Red Blood Cells 4.46 10^6/uL (4.5-5.90); Red Cell Distribution Width 18.1 % (11.8-14.3)
[2021-05-26 11:50] LABS: Potassium 4.5 mmol/L (3.5-5.1)
[2021-05-26 11:57] LABS: Free T4 (Free Thyroxine) 1.34 ng/dL (0.89-1.76); Prostate Specific Antigen 3.15 ng/mL (0.0-4.0)
[2021-05-26 12:00] LABS: Albumin 3.2 g/dL (3.4-5.0); BUN/Creatinine Ratio 16.5; Bilirubin, Total 0.4 mg/dL (0.2-1.0); Calcium 8.6 mg/dL (8.5-10.1); Total Protein 6.6 g/dL (6.4-8.2)
[2021-05-26 12:18] LABS: Basophils % (manual) 0 (0.0-2.0); Blast Cells 0; Metamyelocytes % 0; Myelocytes % 0; Promyelocytes % 0; Reactive Lymphocytes 0
[2021-05-26 14:45] LABS: Band Neutrophils % (manual) 2; Eosinophils % (manual) 5 (0-7); Lymphocytes % (manual) 22 (10.0-50.0); Monocytes % (manual) 12 (0-12)
== END | disposition home or self-care (01) ==
LOC: LAB 08:35
PROVIDERS: ATTEND Internal Medicine Cardiovascular Disease
DX: C61 Malignant neoplasm of prostate (principal); D51.3 Other dietary vitamin B12 deficiency anemia; R30.0 Dysuria; R00.2 Palpitations; E11.9 Type 2 diabetes mellitus without complications; E55.9 Vitamin D deficiency, unspecified; I10 Essential (primary) hypertension; D64.9 Anemia, unspecified; R53.1 Weakness
CPT/HCPCS: 36415; 80053; 80061; 82306; 82607; 83036; 84153; 84403; 84439; 84443; 85007; 85027

== ENCOUNTER → 2021-06-04 | Outpatient (CLI) | payer OTHER, MEDICARE ==
[2021-06-04 15:58] LABS: Carcinoembryonic Antigen 3.94 ng/mL (<5.0 OR =); Free T4 (Free Thyroxine) 1.47 ng/dL (0.89-1.76)
== END | disposition home or self-care (01) ==
LOC: LAB 14:49
PROVIDERS: ATTEND Internal Medicine
DX: R78.3 Finding of hallucinogen in blood (principal)
CPT/HCPCS: 36415; 82378; 84439; 84443

== ENCOUNTER → 2021-07-03 | Outpatient (CLI) | payer OTHER, MEDICARE ==
[2021-07-03 14:01] LABS: INR 3.91 (0.9-1.15)
== END | disposition home or self-care (01) ==
LOC: LAB 13:28
PROVIDERS: ATTEND Internal Medicine
DX: E03.9 Hypothyroidism, unspecified (principal)
CPT/HCPCS: 36415; 84439; 84443; 85610

== ENCOUNTER → 2021-07-31 | Outpatient (CLI) | payer OTHER ==
[2021-07-31 09:44] LABS: Partial Thromboplastin Time 43.9 sec (23.6-33.0)
[2021-07-31 09:54] LABS: Basophils # (auto) 0 10 ^3/uL (0-0.2); Eosinophils # (auto) 0 10 ^3/uL (0-0.8); Hematocrit 36.9 % (41.0-53.0); Hemoglobin 12.2 g/dL (13.5-17.5); Lymphocytes # (auto) 0.6 10 ^3/uL (0.4-5.4); Lymphocytes % (auto) 5.9 % (10.0-50.0); Mean Corpuscular Hemoglobin 28.4 pg (28.0-32.0); Mean Corpuscular Hgb Conc. 33.1 g/dL (32.0-36.0); Mean Corpuscular Volume 85.7 fL (80.0-100.0); Monocytes # (auto) 0.2 10 ^3/uL (0-1.3); Monocytes % (auto) 2.4 % (0.0-12.0); Neutrophils % (auto) 91.7 % (37.0-80.0); Red Cell Distribution Width 14.9 % (11.8-14.3); White Blood Cell 9.8 10^3/uL (4.4-10.8)
[2021-07-31 09:56] LABS: Potassium 3.9 mmol/L (3.5-5.1)
[2021-07-31 09:58] LABS: INR 5.11 (0.9-1.15)
[2021-07-31 10:02] LABS: Free T4 (Free Thyroxine) 0.98 ng/dL (0.89-1.76); T3 Total 0.93 ng/mL (0.60-1.81)
[2021-07-31 10:18] LABS: Albumin 3.8 g/dL (3.4-5.0); BUN/Creatinine Ratio 24.6; Bilirubin, Total 0.5 mg/dL (0.2-1.0); Calcium 8.8 mg/dL (8.5-10.1); Total Protein 7.4 g/dL (6.4-8.2)
== END | disposition home or self-care (01) ==
LOC: LAB 08:47
PROVIDERS: ATTEND Internal Medicine
DX: I26.99 Other pulmonary embolism without acute cor pulmonale (principal); I48.0 Paroxysmal atrial fibrillation; D58.0 Hereditary spherocytosis
CPT/HCPCS: 36415; 80053; 82306; 84439; 84443; 84480; 85025; 85610; 85730

== ENCOUNTER → 2021-10-27 | Outpatient (CLI) | payer OTHER, MEDICARE ==
[~2021-10-27] VITALS: Ht 188 cm; Wt 86.2 kg
[~2021-10-27] MED LIST changes: +ADENOSINE 72 MG in GIVE UN-DILUTED 0 ML IV ONE; +ADENOSINE 90 MG/30 ML INJ IV ONE
== END | disposition home or self-care (01) ==
LOC: Rad HDHVI 13:15
PROVIDERS: ATTEND Internal Medicine Cardiovascular Disease
DX: I50.33 Acute on chronic diastolic (congestive) heart failure (principal); I48.0 Paroxysmal atrial fibrillation; R06.02 Shortness of breath; D68.59 Other primary thrombophilia; R07.89 Other chest pain
CPT/HCPCS: 78452; 93005; 96374; 96375; A9500; J0153

== ENCOUNTER → 2021-11-27 | Outpatient (CLI) | payer OTHER, MEDICARE ==
[~2021-11-27] MED LIST changes: -ADENOSINE 72 MG in GIVE UN-DILUTED 0 ML IV ONE; -ADENOSINE 90 MG/30 ML INJ IV ONE
[2021-11-27 15:55] LABS: Urine Blood Negative /uL (Negative); Urine Specific Gravity 1.025 (1.001-1.035)
== END | disposition home or self-care (01) ==
LOC: LAB 11:06
PROVIDERS: ATTEND Internal Medicine Cardiovascular Disease
DX: N39.0 Urinary tract infection, site not specified (principal)
CPT/HCPCS: 81003; 87086

== ENCOUNTER → 2021-12-16 | Outpatient (CLI) | payer OTHER ==
[2021-12-16 14:47] LABS: INR 2.44 (0.9-1.15); Partial Thromboplastin Time 33.3 sec (23.6-33.0)
[2021-12-16 15:18] LABS: Free T4 (Free Thyroxine) 1.38 ng/dL (0.89-1.76); T3 Total 0.97 ng/mL (0.60-1.81)
== END | disposition home or self-care (01) ==
LOC: LAB 14:21
PROVIDERS: ATTEND Internal Medicine
DX: E03.9 Hypothyroidism, unspecified (principal)
CPT/HCPCS: 36415; 84439; 84443; 84480; 85610; 85730

== ENCOUNTER 2022-01-13 14:26 | Emergency (ER) | payer OTHER ==
[~2022-01-13] VITALS: Ht 188 cm; Wt 84.0 kg
[2022-01-13 15:07] VITALS: BP 171/105
[2022-01-13] MEDS ORDERED: cloNIDine HCL 0.1 MG TAB PO ONE (16:00)
== END 2022-01-13 16:49 | disposition home or self-care (01) ==
LOC: ER 14:26
DX: M25.522 Pain in left elbow (principal); M79.10 Myalgia, unspecified site; I10 Essential (primary) hypertension; M10.9 Gout, unspecified; I48.91 Unspecified atrial fibrillation; Z79.899 Other long term (current) drug therapy
CPT/HCPCS: 70450; 71250; 72125; 72192; 73080

== ENCOUNTER → 2022-01-13 | Outpatient (CLI) | payer OTHER | END | disposition home or self-care (01) | LOC: RT 12:39 | PROVIDERS: ATTEND Internal Medicine | DX: R06.02 Shortness of breath (principal) | CPT/HCPCS: 36600; 82805 ==

== ENCOUNTER 2022-02-03 14:05 | Inpatient (IN) | payer OTHER, MEDICARE ==
[~2022-02-03] VITALS: Ht 188 cm; Wt 80.1 kg
[2022-02-03 15:35] LABS: Basophils # (auto) 0.1 10 ^3/uL (0-0.2); Basophils % (auto) 0.7 % (0.0-2.0); Eosinophils # (auto) 0.1 10 ^3/uL (0-0.8); Eosinophils % (auto) 1.2 % (0.0-7.0); Hematocrit 39.6 % (41.0-53.0); Hemoglobin 12.9 g/dL (13.5-17.5); Lymphocytes # (auto) 1.8 10 ^3/uL (0.4-5.4); Lymphocytes % (auto) 19.2 % (10.0-50.0); Mean Corpuscular Hgb Conc. 32.5 g/dL (32.0-36.0); Mean Corpuscular Volume 86.2 fL (80.0-100.0); Monocytes # (auto) 0.6 10 ^3/uL (0-1.3); Monocytes % (auto) 6.7 % (0.0-12.0); Neutrophils # (auto) 6.9 10 ^3/uL (1.6-8.6); Neutrophils % (auto) 72.2 % (37.0-80.0); Nucleated Red Blood Cells % 0.1 %; Red Blood Cells 4.59 10^6/uL (4.5-5.90); Red Cell Distribution Width 14.4 % (11.8-14.3); White Blood Cell 9.5 10^3/uL (4.4-10.8)
[2022-02-03 15:50] LABS: Albumin 3.3 g/dL (3.4-5.0); Calcium 8.6 mg/dL (8.5-10.1); Magnesium 2.6 mg/dL (1.6-2.6)
[2022-02-03 15:55] LABS: BUN/Creatinine Ratio 26.4; Bilirubin, Total 0.5 mg/dL (0.2-1.0); Total Protein 6.8 g/dL (6.4-8.2)
[2022-02-03 15:58] LABS: INR 0.98 (0.9-1.15); Partial Thromboplastin Time 26.8 sec (24.6-33.4)
[2022-02-03 20:05] VITALS: BP 166/81
[2022-02-03] MEDS ORDERED: AMIODARONE HCL 150 MG in D5W 5% 100 ML IV ONE (21:15)
[2022-02-03] MEDS ORDERED: ALPRAZolam 0.25 MG TAB PO PRN (21:15)
[2022-02-03] MEDS ORDERED: TEMAZEPAM 15 MG CAP PO PRN (21:15)
[2022-02-03] MEDS ORDERED: NITROGLYCERIN 0.4 MG SL TAB SL PRN (21:15)
[2022-02-03] MEDS ORDERED: MORPHINE SULFATE INJ 2 MG/ml SYRG IV PRN (21:15)
[2022-02-03] MEDS: IPRATROPIUM BROM 0.5 MG/2.5ML INH SOL NEB SCH (21:40)
[2022-02-03] MEDS ORDERED: AMIODARONE HCL (50 MG/ ML) 3 ML VIAL IV ONE (22:11)
[2022-02-03] MEDS: methylPREDNISolone SOD SUCC 40 MG/ML VL IV SCH (22:27)
[2022-02-03] MEDS: APIXABAN 5 MG TAB PO SCH (22:27)
[2022-02-03] MEDS: traMADol HCL 50 MG TAB PO SCH (22:27)
[2022-02-03] MEDS ORDERED: IOHEXOL 350 MG/ML 100ML IJ ONE (23:40)
[2022-02-04 00:42] VITALS: BP 161/91
[2022-02-04] MEDS ORDERED: AMIODARONE 450mg/250ml AE 250 ML IV SCH (03:30)
[2022-02-04 05:00] VITALS: BP 151/84
[2022-02-04] MEDS: IPRATROPIUM BROM 0.5 MG/2.5ML INH SOL NEB SCH ×3 (06:08→22:14)
[2022-02-04] MEDS: methylPREDNISolone SOD SUCC 40 MG/ML VL IV SCH (06:24)
[2022-02-04] MEDS: traMADol HCL 50 MG TAB PO SCH ×3 (06:24→22:28)
[2022-02-04 09:00] VITALS: BP 123/72
[2022-02-04] MEDS: METOPROLOL SUCCINATE XL 50 MG TAB PO SCH (10:00)
[2022-02-04] MEDS: TAMSULOSIN HYDROCHLORIDE 0.4 MG CAP PO SCH ×2 (10:00→22:28)
[2022-02-04] MEDS: AMIODARONE HCL 200 MG TAB PO SCH ×2 (10:00→22:28)
[2022-02-04] MEDS: APIXABAN 5 MG TAB PO SCH ×2 (10:00→22:28)
[2022-02-04] MEDS ORDERED: LEVO125T7 PO (10:42)
[2022-02-04] MEDS ORDERED: APIX2.5T PO (10:44)
[2022-02-04] MEDS ORDERED: ALLO100T PO (12:45)
[2022-02-04] MEDS ORDERED: AMIT25TA12 PO (12:46)
[2022-02-04] MEDS ORDERED: BENA20TA14 PO (12:47)
[2022-02-04] MEDS ORDERED: BENA40TA83 PO (12:48)
[2022-02-04] MEDS ORDERED: CLON0.1T PO (12:50)
[2022-02-04] MEDS ORDERED: GABA-339 PO (12:51)
[2022-02-04] MEDS ORDERED: PRE1T PO (12:52)
[2022-02-04] MEDS ORDERED: OMEP40CA33 PO (12:53)
[2022-02-04 13:00] VITALS: BP 129/71
[2022-02-04 17:00] VITALS: BP 134/80
[2022-02-04 22:00] VITALS: BP 135/88
[2022-02-05 05:00] VITALS: BP 144/82
[2022-02-05] MEDS: traMADol HCL 50 MG TAB PO SCH ×3 (05:36→22:29)
[2022-02-05 05:55] LABS: Urine Bacteria NONE SEEN /hpf (None Seen); Urine Blood Negative /uL (Negative); Urine Mucus FEW (None Seen); Urine WBC 1 /hpf (0 - 3)
[2022-02-05] MEDS: IPRATROPIUM BROM 0.5 MG/2.5ML INH SOL NEB SCH ×3 (07:12→19:11)
[2022-02-05] MEDS: TAMSULOSIN HYDROCHLORIDE 0.4 MG CAP PO SCH ×2 (08:39→22:29)
[2022-02-05] MEDS: METOPROLOL SUCCINATE XL 50 MG TAB PO SCH (08:40)
[2022-02-05] MEDS: APIXABAN 5 MG TAB PO SCH ×2 (08:40→22:29)
[2022-02-05] MEDS: AMIODARONE HCL 200 MG TAB PO SCH ×2 (08:40→22:30)
[2022-02-05 09:00] VITALS: BP 140/83
[2022-02-05] MEDS ORDERED: LEVOTHYROXINE SODIUM 25 MCG TAB PO ONE ×2 (10:15→11:00)
[2022-02-05] MEDS ORDERED: LEVOTHYROXINE SODIUM 112 MCG TAB PO ONE (11:00)
[2022-02-05 13:00] VITALS: BP 123/76
[2022-02-05 17:13] VITALS: BP 129/88
[2022-02-05 22:00] VITALS: BP 128/71
[2022-02-05] MEDS: MONTELUKAST SODIUM 10 MG TAB PO SCH (22:29)
[2022-02-06 05:00] VITALS: BP 115/78
[2022-02-06] MEDS: traMADol HCL 50 MG TAB PO SCH ×3 (06:00→21:51)
[2022-02-06] MEDS: LEVOTHYROXINE SODIUM 25 MCG TAB PO SCH (06:49)
[2022-02-06] MEDS: LEVOTHYROXINE SODIUM 112 MCG TAB PO SCH (06:51)
[2022-02-06] MEDS: IPRATROPIUM BROM 0.5 MG/2.5ML INH SOL NEB SCH ×3 (06:52→22:13)
[2022-02-06] MEDS ORDERED: LEVOTHYROXINE SODIUM 25 MCG TAB PO SCH (07:00)
[2022-02-06] MEDS: METOPROLOL SUCCINATE XL 50 MG TAB PO SCH (08:58)
[2022-02-06] MEDS: APIXABAN 5 MG TAB PO SCH ×2 (08:58→21:49)
[2022-02-06] MEDS: TAMSULOSIN HYDROCHLORIDE 0.4 MG CAP PO SCH ×2 (08:59→21:50)
[2022-02-06] MEDS: AMIODARONE HCL 200 MG TAB PO SCH ×2 (08:59→21:50)
[2022-02-06 09:00] VITALS: BP 111/72
[2022-02-06] MEDS ORDERED: PANTOPRAZOLE 40 MG TAB PO ONE (11:30)
[2022-02-06 13:00] VITALS: BP 107/67
[2022-02-06 21:23] VITALS: BP 107/67
[2022-02-06 21:42] VITALS: BP 143/84
[2022-02-06] MEDS: PANTOPRAZOLE 40 MG TAB PO SCH (21:50)
[2022-02-06] MEDS: MONTELUKAST SODIUM 10 MG TAB PO SCH (21:51)
[2022-02-07 04:42] VITALS: BP 130/84
[2022-02-07 05:28] LABS: Basophils # (auto) 0 10 ^3/uL (0-0.2); Basophils % (auto) 0.3 % (0.0-2.0); Eosinophils # (auto) 0.1 10 ^3/uL (0-0.8); Eosinophils % (auto) 2.1 % (0.0-7.0); Hematocrit 34.9 % (41.0-53.0); Hemoglobin 11.9 g/dL (13.5-17.5); Lymphocytes # (auto) 1.5 10 ^3/uL (0.4-5.4); Lymphocytes % (auto) 22.8 % (10.0-50.0); Mean Corpuscular Hemoglobin 29.4 pg (28.0-32.0); Mean Corpuscular Volume 86.5 fL (80.0-100.0); Monocytes # (auto) 0.5 10 ^3/uL (0-1.3); Monocytes % (auto) 7.2 % (0.0-12.0); Neutrophils # (auto) 4.4 10 ^3/uL (1.6-8.6); Neutrophils % (auto) 67.6 % (37.0-80.0); Red Blood Cells 4.03 10^6/uL (4.5-5.90); Red Cell Distribution Width 14.5 % (11.8-14.3); White Blood Cell 6.5 10^3/uL (4.4-10.8)
[2022-02-07] MEDS: traMADol HCL 50 MG TAB PO SCH ×3 (05:35→22:00)
[2022-02-07 05:44] LABS: BUN/Creatinine Ratio 21.7; Calcium 7.8 mg/dL (8.5-10.1)
[2022-02-07] MEDS: IPRATROPIUM BROM 0.5 MG/2.5ML INH SOL NEB SCH ×3 (06:53→22:30)
[2022-02-07] MEDS: LEVOTHYROXINE SODIUM 112 MCG TAB PO SCH (07:19)
[2022-02-07] MEDS: LEVOTHYROXINE SODIUM 25 MCG TAB PO SCH (07:19)
[2022-02-07 09:27] VITALS: BP 92/48
[2022-02-07] MEDS: AMIODARONE HCL 200 MG TAB PO SCH ×2 (09:40→16:15)
[2022-02-07] MEDS: APIXABAN 5 MG TAB PO SCH ×2 (09:40→22:23)
[2022-02-07] MEDS: PANTOPRAZOLE 40 MG TAB PO SCH ×2 (09:41→22:24)
[2022-02-07] MEDS: TAMSULOSIN HYDROCHLORIDE 0.4 MG CAP PO SCH ×2 (09:41→22:24)
[2022-02-07] MEDS: METOPROLOL SUCCINATE XL 50 MG TAB PO SCH (09:42)
[2022-02-07 12:26] VITALS: BP 114/66
[2022-02-07] MEDS ORDERED: LIDOCAINE 5% TOPICAL PATCH TOP ONE (17:00)
[2022-02-07 17:22] VITALS: BP 104/64
[2022-02-07 22:00] VITALS: BP 123/69
[2022-02-07] MEDS: MONTELUKAST SODIUM 10 MG TAB PO SCH (22:24)
[2022-02-08 05:00] VITALS: BP 146/83
[2022-02-08] MEDS: traMADol HCL 50 MG TAB PO SCH (05:09)
[2022-02-08 05:38] LABS: Basophils # (auto) 0 10 ^3/uL (0-0.2); Basophils % (auto) 0.3 % (0.0-2.0); Eosinophils # (auto) 0.2 10 ^3/uL (0-0.8); Eosinophils % (auto) 2.5 % (0.0-7.0); Hematocrit 34.5 % (41.0-53.0); Hemoglobin 11.6 g/dL (13.5-17.5); Lymphocytes # (auto) 1.5 10 ^3/uL (0.4-5.4); Mean Corpuscular Hemoglobin 29.4 pg (28.0-32.0); Mean Corpuscular Hgb Conc. 33.8 g/dL (32.0-36.0); Mean Corpuscular Volume 86.9 fL (80.0-100.0); Monocytes # (auto) 0.6 10 ^3/uL (0-1.3); Monocytes % (auto) 7.9 % (0.0-12.0); Neutrophils # (auto) 4.8 10 ^3/uL (1.6-8.6); Neutrophils % (auto) 68.3 % (37.0-80.0); Red Blood Cells 3.97 10^6/uL (4.5-5.90); Red Cell Distribution Width 14.5 % (11.8-14.3); White Blood Cell 7.1 10^3/uL (4.4-10.8)
[2022-02-08] MEDS: LEVOTHYROXINE SODIUM 112 MCG TAB PO SCH (06:43)
[2022-02-08] MEDS: LEVOTHYROXINE SODIUM 25 MCG TAB PO SCH (06:43)
[2022-02-08] MEDS: IPRATROPIUM BROM 0.5 MG/2.5ML INH SOL NEB SCH ×2 (06:43→14:00)
[2022-02-08 08:30] VITALS: BP 136/80
[2022-02-08] MEDS: METOPROLOL SUCCINATE XL 50 MG TAB PO SCH (09:05)
[2022-02-08] MEDS: TAMSULOSIN HYDROCHLORIDE 0.4 MG CAP PO SCH (09:05)
[2022-02-08] MEDS: AMIODARONE HCL 200 MG TAB PO SCH (09:06)
[2022-02-08] MEDS: APIXABAN 5 MG TAB PO SCH (09:06)
[2022-02-08] MEDS: PANTOPRAZOLE 40 MG TAB PO SCH ×2 (09:07→09:08)
[2022-02-08] MEDS ORDERED: LIDOCAINE 5% TOPICAL PATCH TOP SCH (10:00)
[2022-02-08] MEDS ORDERED: LEVO137T3 PO (10:24)
[2022-02-08] MEDS ORDERED: AMIO200T43 PO (10:24)
[2022-02-08] MEDS ORDERED: LORazepam 2MG/ML-1ML VIAL IV ONE (10:30)
[2022-02-08 10:37] VITALS: BP 136/80
[2022-02-08 11:30] VITALS: BP_SYST 103; BP_SYST 136; BP_DIAS 68; BP_DIAS 80
[2022-02-08] MEDS ORDERED: LORazepam 0.5 MG TAB PO ONE (13:15)
[2022-02-08 13:58] VITALS: BP 103/68
== END 2022-02-08 15:20 | disposition home or self-care (01) | DRG 309 ==
LOC: ER 14:05 → TELE 21:29 → TELE-CENTR 02-04 00:15
PROVIDERS: ADMIT Internal Medicine Cardiovascular Disease; ATTEND Internal Medicine
PROC: 5A09357 Assistance with Respiratory Ventilation, Less than 24 Consecutive Hours, Continuous Positive Airway Pressure (ICD-10-PCS; principal; 2022-02-03)
DX: I48.91 Unspecified atrial fibrillation (principal); D68.59 Other primary thrombophilia; S22.42XA Multiple fractures of ribs, left side, initial encounter for closed fracture; J96.10 Chronic respiratory failure, unspecified whether with hypoxia or hypercapnia; E03.9 Hypothyroidism, unspecified; G47.33 Obstructive sleep apnea (adult) (pediatric); I10 Essential (primary) hypertension; J44.9 Chronic obstructive pulmonary disease, unspecified; M10.9 Gout, unspecified; N40.0 Benign prostatic hyperplasia without lower urinary tract symptoms; N28.9 Disorder of kidney and ureter, unspecified; R29.6 Repeated falls; R55 Syncope and collapse; W18.39XA Other fall on same level, initial encounter; Y93.89 Activity, other specified; Y92.89 Other specified places as the place of occurrence of the external cause; Z91.81 History of falling; Z86.718 Personal history of other venous thrombosis and embolism; Y99.8 Other external cause status
CPT/HCPCS: 36415; 36600; 71045; 71275; 80048; 80053; 81001; 82805; 83735; 84132; 84443; 84484; 85025; 85610; 85730; 93005; 94640; 94660; 96365; 97110; 97116; 97163; 97530; G0378; J7060

== ENCOUNTER → 2022-02-18 | Outpatient (CLI) | payer OTHER, MEDICARE ==
[~2022-02-18] MED LIST changes: +AMIO200T43 PO; -AMIT1TAB34 PO; +AMIT25TA12 PO; +APIX2.5T PO; -AZIT250T9 PO; -BENA20TA14 PO; +BENA40TA83 PO; -CLO01T PO; +CLON0.1T PO; -FURO1TAB33 PO; -HYDR200T36 PO; +LEVO125T7 PO; +LEVO137T3 PO; -LEVO200T7 PO; -LEVO25TA6 PO; +OMEP40CA33 PO; +PRE1T PO; -PRED-559 PO; -WARF3TAB22 PO; -WARF4TAB33 PO
[2022-02-18 15:13] LABS: Albumin 3.3 g/dL (3.4-5.0); BUN/Creatinine Ratio 14.9; Calcium 8.3 mg/dL (8.5-10.1); Potassium 3.7 mmol/L (3.5-5.1)
[2022-02-18 15:15] LABS: Bilirubin, Total 0.6 mg/dL (0.2-1.0); Total Protein 5.8 g/dL (6.4-8.2)
[2022-02-18 15:19] LABS: Free T4 (Free Thyroxine) 1.93 ng/dL (0.89-1.76); Prostate Specific Antigen 3.15 ng/mL (0.0-4.0)
[2022-02-18 15:20] LABS: Carcinoembryonic Antigen 6.55 ng/mL (<5.0 OR =)
[2022-02-18 15:33] LABS: Thyroid Stimulating Hormone 0.7 uIU/mL (0.358-3.74)
== END | disposition home or self-care (01) ==
LOC: LAB 13:49
PROVIDERS: ATTEND Internal Medicine
DX: I10 Essential (primary) hypertension (principal)
CPT/HCPCS: 36415; 80053; 82105; 82378; 83615; 84153; 84439; 84443; 86301

== ENCOUNTER → 2022-03-10 | Outpatient (CLI) | payer MEDICARE, OTHER ==
[~2022-03-10] MED LIST changes: +ALBUTEROL SULF 2.5 MG/0.5ML(0.5%) NEB SOLN ONE
== END | disposition home or self-care (01) ==
LOC: RT 11:18
PROVIDERS: ATTEND Internal Medicine Pulmonary Disease
DX: R06.02 Shortness of breath (principal); R06.00 Dyspnea, unspecified; R05.9 Cough, unspecified; F17.210 Nicotine dependence, cigarettes, uncomplicated
CPT/HCPCS: 94060

== ENCOUNTER → 2022-03-15 | Outpatient (CLI) | payer OTHER ==
[~2022-03-15] MED LIST changes: -ALBUTEROL SULF 2.5 MG/0.5ML(0.5%) NEB SOLN ONE
[2022-03-15 14:19] LABS: Basophils # (auto) 0.1 10 ^3/uL (0-0.2); Basophils % (auto) 0.6 % (0.0-2.0); Eosinophils # (auto) 0.1 10 ^3/uL (0-0.8); Eosinophils % (auto) 1.4 % (0.0-7.0); Hematocrit 37.8 % (41.0-53.0); Hemoglobin 12.2 g/dL (13.5-17.5); Lymphocytes # (auto) 1.1 10 ^3/uL (0.4-5.4); Lymphocytes % (auto) 13.1 % (10.0-50.0); Mean Corpuscular Hemoglobin 28.2 pg (28.0-32.0); Mean Corpuscular Hgb Conc. 32.3 g/dL (32.0-36.0); Mean Corpuscular Volume 87.2 fL (80.0-100.0); Monocytes # (auto) 0.4 10 ^3/uL (0-1.3); Monocytes % (auto) 5.1 % (0.0-12.0); Neutrophils # (auto) 6.6 10 ^3/uL (1.6-8.6); Neutrophils % (auto) 79.8 % (37.0-80.0); Nucleated Red Blood Cells % 0.1 %; Red Blood Cells 4.34 10^6/uL (4.5-5.90); Red Cell Distribution Width 15.1 % (11.8-14.3); White Blood Cell 8.2 10^3/uL (4.4-10.8)
== END | disposition home or self-care (01) ==
LOC: LAB 14:00
PROVIDERS: ATTEND Internal Medicine
DX: I48.0 Paroxysmal atrial fibrillation (principal)
CPT/HCPCS: 36415; 85025

== ENCOUNTER 2022-03-17 15:20 | Inpatient (IN) | payer OTHER, MEDICARE ==
[~2022-03-17] VITALS: Ht 193 cm; Wt 81.3 kg
[2022-03-17 17:08] LABS: Basophils # (auto) 0 10 ^3/uL (0-0.2); Basophils % (auto) 0.4 % (0.0-2.0); Eosinophils # (auto) 0.1 10 ^3/uL (0-0.8); Eosinophils % (auto) 0.6 % (0.0-7.0); Hematocrit 39.9 % (41.0-53.0); Hemoglobin 12.8 g/dL (13.5-17.5); Lymphocytes # (auto) 0.9 10 ^3/uL (0.4-5.4); Lymphocytes % (auto) 8.9 % (10.0-50.0); Mean Corpuscular Hemoglobin 27.8 pg (28.0-32.0); Mean Corpuscular Hgb Conc. 32.1 g/dL (32.0-36.0); Mean Corpuscular Volume 86.4 fL (80.0-100.0); Monocytes # (auto) 0.3 10 ^3/uL (0-1.3); Monocytes % (auto) 3.2 % (0.0-12.0); Neutrophils # (auto) 9.3 10 ^3/uL (1.6-8.6); Neutrophils % (auto) 86.9 % (37.0-80.0); Red Blood Cells 4.62 10^6/uL (4.5-5.90); Red Cell Distribution Width 15.1 % (11.8-14.3); White Blood Cell 10.7 10^3/uL (4.4-10.8)
[2022-03-17 17:23] LABS: Albumin 3.1 g/dL (3.4-5.0); BUN/Creatinine Ratio 16.8; Calcium 8.3 mg/dL (8.5-10.1); Potassium 4.5 mmol/L (3.5-5.1)
[2022-03-17 17:25] LABS: Bilirubin, Total 0.5 mg/dL (0.2-1.0); Total Protein 6.9 g/dL (6.4-8.2)
[2022-03-17 17:42] LABS: INR 1.08 (0.9-1.15); Partial Thromboplastin Time 29.1 sec (24.6-33.4)
[2022-03-18 00:43] LABS: Magnesium 2.2 mg/dL (1.6-2.6); Phosphorus 3.2 mg/dL (2.5-4.90)
[2022-03-18] MEDS ORDERED: predniSONE 1 MG TAB PO SCH (00:45)
[2022-03-18] MEDS ORDERED: SODIUM CHLORIDE 0.9% 1,000 ML IV ONE (00:45)
[2022-03-18] MEDS ORDERED: PATIENTS OWN MEDICATION (Gabapentin 600 MG) PO SCH (00:45)
[2022-03-18] MEDS: HYDROcodone-ACET 10/325MG TAB PO PRN ×2 (01:16→09:44)
[2022-03-18 01:51] LABS: INR 1.09 (0.9-1.15)
[2022-03-18 04:45] LABS: Basophils # (auto) 0.1 10 ^3/uL (0-0.2); Basophils % (auto) 0.5 % (0.0-2.0); Eosinophils # (auto) 0 10 ^3/uL (0-0.8); Eosinophils % (auto) 0.3 % (0.0-7.0); Hemoglobin 11.5 g/dL (13.5-17.5); Lymphocytes # (auto) 0.9 10 ^3/uL (0.4-5.4); Lymphocytes % (auto) 8.2 % (10.0-50.0); Mean Corpuscular Hemoglobin 27.6 pg (28.0-32.0); Mean Corpuscular Volume 86.2 fL (80.0-100.0); Monocytes # (auto) 0.3 10 ^3/uL (0-1.3); Neutrophils # (auto) 9.8 10 ^3/uL (1.6-8.6); Red Blood Cells 4.18 10^6/uL (4.5-5.90); White Blood Cell 11.2 10^3/uL (4.4-10.8)
[2022-03-18 05:03] LABS: Albumin 2.7 g/dL (3.4-5.0); Calcium 8.1 mg/dL (8.5-10.1)
[2022-03-18 05:09] LABS: BUN/Creatinine Ratio 16.4; Bilirubin, Total 0.4 mg/dL (0.2-1.0); Total Protein 5.9 g/dL (6.4-8.2)
[2022-03-18 05:15] LABS: Potassium 5.7 mmol/L (3.5-5.1)
[2022-03-18] MEDS: cloNIDine HCL 0.1 MG TAB PO SCH ×3 (06:25→20:57)
[2022-03-18 07:25] LABS: Urine Bacteria NONE SEEN /hpf (None Seen); Urine Blood 2+ /uL (Negative); Urine Mucus MODERATE (None Seen); Urine WBC 1897 /hpf (0 - 3); Urine WBC Clumps PRESENT /hpf (None Seen)
[2022-03-18] MEDS ORDERED: BENAZEPRIL HCL 40 MG PO SCH (10:00)
[2022-03-18] MEDS ORDERED: LEVOTHYROXINE SODIUM 112 MCG TAB PO SCH (10:00)
[2022-03-18] MEDS ORDERED: BENAZEPRIL HCL 10 MG TAB PO SCH (10:00)
[2022-03-18] MEDS ORDERED: PANTOPRAZOLE 40 MG/10 ML VIAL INJ IV SCH (10:00)
[2022-03-18] MEDS ORDERED: LEVOTHYROXINE SODIUM 137 MCG PO SCH (10:00)
[2022-03-18] MEDS ORDERED: LEVOTHYROXINE SODIUM 25 MCG TAB PO SCH (10:00)
[2022-03-18] MEDS ORDERED: LORazepam 2MG/ML-1ML VIAL IV PRN (10:15)
[2022-03-18] MEDS: AMIODARONE HCL 200 MG TAB PO SCH ×2 (10:24→20:58)
[2022-03-18] MEDS: TAMSULOSIN HYDROCHLORIDE 0.4 MG CAP PO SCH ×2 (10:24→21:02)
[2022-03-18] MEDS: METOPROLOL TARTRATE 25 MG TAB PO SCH ×2 (10:25→20:58)
[2022-03-18] MEDS: ALLOPURINOL 100 MG TAB PO SCH ×2 (10:25→20:58)
[2022-03-18 15:18] LABS: BUN/Creatinine Ratio 17.6; Calcium 7.8 mg/dL (8.5-10.1); Magnesium 2.3 mg/dL (1.6-2.6); Potassium 4.9 mmol/L (3.5-5.1)
[2022-03-18 17:26] VITALS: BP 108/56
[2022-03-18] MEDS ORDERED: cefTRIAXone 1GM/50ML D5W 50 ML IV ONE (17:45)
[2022-03-18] MEDS: PANTOPRAZOLE 40 MG TAB PO SCH (21:02)
[2022-03-18] MEDS: AMITRIPTYLINE HCL 25 MG TAB PO SCH (21:02)
[2022-03-18 22:10] VITALS: BP 103/62
[2022-03-19 04:54] VITALS: BP 109/62
[2022-03-19] MEDS: LEVOTHYROXINE SODIUM 112 MCG TAB PO SCH (05:34)
[2022-03-19] MEDS: LEVOTHYROXINE SODIUM 25 MCG TAB PO SCH (05:34)
[2022-03-19] MEDS: cloNIDine HCL 0.1 MG TAB PO SCH ×3 (05:35→22:00)
[2022-03-19 06:17] LABS: Basophils # (auto) 0 10 ^3/uL (0-0.2); Basophils % (auto) 0.4 % (0.0-2.0); Eosinophils # (auto) 0.2 10 ^3/uL (0-0.8); Eosinophils % (auto) 3.1 % (0.0-7.0); Hematocrit 31.6 % (41.0-53.0); Hemoglobin 10.5 g/dL (13.5-17.5); Lymphocytes # (auto) 1.1 10 ^3/uL (0.4-5.4); Lymphocytes % (auto) 17.1 % (10.0-50.0); Mean Corpuscular Hemoglobin 28.8 pg (28.0-32.0); Mean Corpuscular Hgb Conc. 33.1 g/dL (32.0-36.0); Mean Corpuscular Volume 86.8 fL (80.0-100.0); Monocytes # (auto) 0.4 10 ^3/uL (0-1.3); Monocytes % (auto) 5.8 % (0.0-12.0); Neutrophils # (auto) 4.9 10 ^3/uL (1.6-8.6); Neutrophils % (auto) 73.6 % (37.0-80.0); Red Blood Cells 3.64 10^6/uL (4.5-5.90); Red Cell Distribution Width 15.1 % (11.8-14.3); White Blood Cell 6.7 10^3/uL (4.4-10.8)
[2022-03-19 06:27] LABS: Calcium 7.8 mg/dL (8.5-10.1)
[2022-03-19] MEDS ORDERED: LEVOTHYROXINE SODIUM 112 MCG TAB PO SCH (07:00)
[2022-03-19 08:19] VITALS: BP 117/70
[2022-03-19] MEDS: cefTRIAXone 1GM/50ML D5W 50 ML IV SCH (09:02)
[2022-03-19] MEDS: FINASTERIDE 5 MG TAB PO SCH (09:03)
[2022-03-19] MEDS: TAMSULOSIN HYDROCHLORIDE 0.4 MG CAP PO SCH ×2 (09:03→22:27)
[2022-03-19] MEDS: AMIODARONE HCL 200 MG TAB PO SCH (09:03)
[2022-03-19] MEDS: ALLOPURINOL 100 MG TAB PO SCH ×2 (09:03→22:27)
[2022-03-19] MEDS: PANTOPRAZOLE 40 MG TAB PO SCH ×2 (09:03→22:27)
[2022-03-19 13:21] VITALS: BP 128/71
[2022-03-19] MEDS: HYDROcodone-ACET 10/325MG TAB PO PRN ×2 (16:54→23:00)
[2022-03-19 17:00] VITALS: BP 110/67
[2022-03-19 20:25] VITALS: BP 110/60
[2022-03-19 22:00] VITALS: BP 110/60
[2022-03-19] MEDS: AMITRIPTYLINE HCL 25 MG TAB PO SCH (22:00)
[2022-03-20] VITALS (7 sets, daily range): BP systolic 120–146; BP diastolic 68–84
[2022-03-20] MEDS: diphenhdrAMINE HCL 25 MG CAP PO PRN (04:26)
[2022-03-20] MEDS: cloNIDine HCL 0.1 MG TAB PO SCH ×3 (05:57→22:00)
[2022-03-20] MEDS: LEVOTHYROXINE SODIUM 25 MCG TAB PO SCH (06:19)
[2022-03-20] MEDS: LEVOTHYROXINE SODIUM 112 MCG TAB PO SCH (06:19)
[2022-03-20] MEDS: ALLOPURINOL 100 MG TAB PO SCH ×2 (10:00→22:00)
[2022-03-20] MEDS: AMIODARONE HCL 200 MG TAB PO SCH (10:00)
[2022-03-20] MEDS: TAMSULOSIN HYDROCHLORIDE 0.4 MG CAP PO SCH ×2 (11:31→22:02)
[2022-03-20] MEDS: FINASTERIDE 5 MG TAB PO SCH (11:31)
[2022-03-20] MEDS: cefTRIAXone 1GM/50ML D5W 50 ML IV SCH (11:32)
[2022-03-20] MEDS: PANTOPRAZOLE 40 MG TAB PO SCH ×2 (11:32→22:02)
[2022-03-20] MEDS: HYDROcodone-ACET 10/325MG TAB PO PRN ×2 (11:53→20:18)
[2022-03-20] MEDS: AMITRIPTYLINE HCL 25 MG TAB PO SCH (22:00)
[2022-03-21] MEDS: HYDROcodone-ACET 10/325MG TAB PO PRN ×3 (01:59→19:50)
[2022-03-21 05:00] VITALS: BP 113/72
[2022-03-21] MEDS: cloNIDine HCL 0.1 MG TAB PO SCH ×3 (05:56→21:50)
[2022-03-21] MEDS: LEVOTHYROXINE SODIUM 112 MCG TAB PO SCH (06:08)
[2022-03-21] MEDS: LEVOTHYROXINE SODIUM 25 MCG TAB PO SCH (06:09)
[2022-03-21 09:07] VITALS: BP 126/66
[2022-03-21] MEDS: cefTRIAXone 1GM/50ML D5W 50 ML IV SCH (09:45)
[2022-03-21] MEDS: FINASTERIDE 5 MG TAB PO SCH (09:45)
[2022-03-21] MEDS: LOPERAMIDE HCL 2 MG CAP/TAB PO PRN (09:45)
[2022-03-21] MEDS: ALLOPURINOL 100 MG TAB PO SCH ×2 (09:45→21:50)
[2022-03-21] MEDS: TAMSULOSIN HYDROCHLORIDE 0.4 MG CAP PO SCH ×2 (09:45→21:47)
[2022-03-21] MEDS: AMIODARONE HCL 200 MG TAB PO SCH (09:45)
[2022-03-21] MEDS: PANTOPRAZOLE 40 MG TAB PO SCH ×2 (09:45→21:47)
[2022-03-21 13:22] VITALS: BP 124/63
[2022-03-21] MEDS: ERTAPENEM SOD INJ 1 GM in SODIUM CHL 0.9% 50 ML IV SCH (14:44)
[2022-03-21 17:08] VITALS: BP 136/85
[2022-03-21] MEDS: ONDANSETRON HCL 4 MG/2 ML VIAL IV PRN (19:49)
[2022-03-21] MEDS: AMITRIPTYLINE HCL 25 MG TAB PO SCH (21:50)
[2022-03-21 22:00] VITALS: BP 118/69
[2022-03-22] VITALS (11 sets, daily range): BP systolic 92–148; BP diastolic 57–86
[2022-03-22] MEDS: HYDROcodone-ACET 10/325MG TAB PO PRN ×2 (04:22→17:20)
[2022-03-22] MEDS: LEVOTHYROXINE SODIUM 112 MCG TAB PO SCH (04:33)
[2022-03-22] MEDS: LEVOTHYROXINE SODIUM 25 MCG TAB PO SCH (04:33)
[2022-03-22] MEDS: cloNIDine HCL 0.1 MG TAB PO SCH ×3 (05:19→22:00)
[2022-03-22] MEDS: PANTOPRAZOLE 40 MG TAB PO SCH ×2 (09:49→21:04)
[2022-03-22] MEDS: TAMSULOSIN HYDROCHLORIDE 0.4 MG CAP PO SCH ×2 (09:49→21:04)
[2022-03-22] MEDS: LOPERAMIDE HCL 2 MG CAP/TAB PO PRN (09:49)
[2022-03-22] MEDS: FINASTERIDE 5 MG TAB PO SCH (09:49)
[2022-03-22] MEDS: AMIODARONE HCL 200 MG TAB PO SCH (09:50)
[2022-03-22] MEDS: ALLOPURINOL 100 MG TAB PO SCH ×2 (09:50→22:00)
[2022-03-22] MEDS ORDERED: LIDOCAINE 2%HCL (LOCAL ANESTH.) INJ 20ML MDV ONE (12:59)
[2022-03-22] MEDS ORDERED: VANCOMYCIN HCL 1000 MG VL ONE (13:24)
[2022-03-22] MEDS ORDERED: fentaNYL CITRATE 100 MCG/2 ML VL ONE (13:24)
[2022-03-22] MEDS ORDERED: MIDAZOLAM HCL 2MG/2ML 2ml VIAL (1mg/ml) ONE (13:24)
[2022-03-22] MEDS ORDERED: VANCOMYCIN 1GM/250ML 250 ML IV ONE (13:25)
[2022-03-22] MEDS ORDERED: IOHEXOL 350 MG/ML 100ML IJ ONE (13:43)
[2022-03-22] MEDS ORDERED: FUROSEMIDE 20 MG/2 ML VIAL ONE (14:00)
[2022-03-22] MEDS: ERTAPENEM SOD INJ 1 GM in SODIUM CHL 0.9% 50 ML IV SCH (16:34)
[2022-03-22] MEDS: AMITRIPTYLINE HCL 25 MG TAB PO SCH (22:00)
[2022-03-22] MEDS: ONDANSETRON HCL 4 MG/2 ML VIAL IV PRN (22:32)
[2022-03-23] MEDS: diphenhdrAMINE HCL 25 MG CAP PO PRN ×3 (01:31→21:07)
[2022-03-23] MEDS ORDERED: VANCOMYCIN 1GM/250ML 250 ML IV SCH ×2 (02:00)
[2022-03-23] MEDS: HYDROcodone-ACET 10/325MG TAB PO PRN ×3 (04:57→21:08)
[2022-03-23 05:00] VITALS: BP 137/76
[2022-03-23] MEDS: cloNIDine HCL 0.1 MG TAB PO SCH ×3 (06:00→21:54)
[2022-03-23 06:20] LABS: Basophils # (auto) 0 10 ^3/uL (0-0.2); Basophils % (auto) 0.7 % (0.0-2.0); Eosinophils # (auto) 0.3 10 ^3/uL (0-0.8); Eosinophils % (auto) 5.4 % (0.0-7.0); Hematocrit 34.4 % (41.0-53.0); Hemoglobin 11.7 g/dL (13.5-17.5); Lymphocytes % (auto) 18.8 % (10.0-50.0); Mean Corpuscular Hemoglobin 29.1 pg (28.0-32.0); Mean Corpuscular Volume 85.4 fL (80.0-100.0); Monocytes # (auto) 0.6 10 ^3/uL (0-1.3); Monocytes % (auto) 10.3 % (0.0-12.0); Neutrophils # (auto) 3.5 10 ^3/uL (1.6-8.6); Neutrophils % (auto) 64.8 % (37.0-80.0); Red Blood Cells 4.03 10^6/uL (4.5-5.90); Red Cell Distribution Width 15.1 % (11.8-14.3); White Blood Cell 5.4 10^3/uL (4.4-10.8)
[2022-03-23 06:26] LABS: BUN/Creatinine Ratio 15.9; Calcium 7.9 mg/dL (8.5-10.1); Potassium 4.9 mmol/L (3.5-5.1)
[2022-03-23] MEDS: LEVOTHYROXINE SODIUM 112 MCG TAB PO SCH (06:45)
[2022-03-23] MEDS: LEVOTHYROXINE SODIUM 25 MCG TAB PO SCH (06:46)
[2022-03-23 09:00] VITALS: BP 117/71
[2022-03-23] MEDS: PANTOPRAZOLE 40 MG TAB PO SCH ×2 (09:37→21:04)
[2022-03-23] MEDS: TAMSULOSIN HYDROCHLORIDE 0.4 MG CAP PO SCH ×2 (09:37→21:04)
[2022-03-23] MEDS: FINASTERIDE 5 MG TAB PO SCH (09:37)
[2022-03-23] MEDS: AMIODARONE HCL 200 MG TAB PO SCH (09:38)
[2022-03-23] MEDS: ERTAPENEM SOD INJ 1 GM in SODIUM CHL 0.9% 50 ML IV SCH (09:38)
[2022-03-23] MEDS: ALLOPURINOL 100 MG TAB PO SCH ×2 (09:40→22:00)
[2022-03-23 13:00] VITALS: BP 120/73
[2022-03-23 22:00] VITALS: BP 137/72
[2022-03-23] MEDS: AMITRIPTYLINE HCL 25 MG TAB PO SCH (22:00)
[2022-03-24 05:00] VITALS: BP 126/64
[2022-03-24] MEDS: cloNIDine HCL 0.1 MG TAB PO SCH ×3 (06:00→22:00)
[2022-03-24] MEDS: diphenhdrAMINE HCL 25 MG CAP PO PRN ×2 (06:01→23:01)
[2022-03-24] MEDS: LEVOTHYROXINE SODIUM 112 MCG TAB PO SCH (06:03)
[2022-03-24] MEDS: LEVOTHYROXINE SODIUM 25 MCG TAB PO SCH (06:04)
[2022-03-24] MEDS: TAMSULOSIN HYDROCHLORIDE 0.4 MG CAP PO SCH ×2 (08:58→22:17)
[2022-03-24] MEDS: ALLOPURINOL 100 MG TAB PO SCH ×2 (08:58→22:00)
[2022-03-24] MEDS: PANTOPRAZOLE 40 MG TAB PO SCH ×2 (08:58→22:18)
[2022-03-24] MEDS: AMIODARONE HCL 200 MG TAB PO SCH (08:58)
[2022-03-24] MEDS: FINASTERIDE 5 MG TAB PO SCH (08:59)
[2022-03-24 09:00] VITALS: BP 118/70
[2022-03-24] MEDS: HYDROcodone-ACET 10/325MG TAB PO PRN ×2 (09:45→21:07)
[2022-03-24 12:31] VITALS: BP 97/57
[2022-03-24] MEDS: ERTAPENEM SOD INJ 1 GM in SODIUM CHL 0.9% 50 ML IV SCH (15:03)
[2022-03-24 16:51] VITALS: BP 131/88
[2022-03-24] MEDS: AMITRIPTYLINE HCL 25 MG TAB PO SCH (22:00)
[2022-03-24 23:44] VITALS: BP 108/35
[2022-03-25] MEDS: HYDROcodone-ACET 10/325MG TAB PO PRN ×2 (03:21→20:30)
[2022-03-25 05:43] VITALS: BP 109/64
[2022-03-25] MEDS: cloNIDine HCL 0.1 MG TAB PO SCH ×3 (06:00→22:00)
[2022-03-25] MEDS: LEVOTHYROXINE SODIUM 112 MCG TAB PO SCH (06:04)
[2022-03-25] MEDS: LEVOTHYROXINE SODIUM 25 MCG TAB PO SCH (06:04)
[2022-03-25 09:00] VITALS: BP 139/83
[2022-03-25] MEDS: TAMSULOSIN HYDROCHLORIDE 0.4 MG CAP PO SCH ×2 (09:28→23:03)
[2022-03-25] MEDS: ERTAPENEM SOD INJ 1 GM in SODIUM CHL 0.9% 50 ML IV SCH (09:28)
[2022-03-25] MEDS: FINASTERIDE 5 MG TAB PO SCH (09:29)
[2022-03-25] MEDS: PANTOPRAZOLE 40 MG TAB PO SCH ×2 (09:29→23:03)
[2022-03-25] MEDS: ALLOPURINOL 100 MG TAB PO SCH ×2 (09:29→22:00)
[2022-03-25] MEDS: AMIODARONE HCL 200 MG TAB PO SCH (09:29)
[2022-03-25 13:00] VITALS: BP 99/69
[2022-03-25 17:00] VITALS: BP 135/51
[2022-03-25] MEDS: Ensure HIGH Protein Chocolate 8oz Bottle PO SCH (19:58)
[2022-03-25 20:00] VITALS: BP 135/51
[2022-03-25] MEDS: AMITRIPTYLINE HCL 25 MG TAB PO SCH (22:00)
[2022-03-25 23:26] VITALS: BP 129/65
[2022-03-26] MEDS: diphenhdrAMINE HCL 25 MG CAP PO PRN (01:04)
[2022-03-26 05:09] VITALS: BP 114/66
[2022-03-26] MEDS: cloNIDine HCL 0.1 MG TAB PO SCH ×3 (06:00→22:00)
[2022-03-26] MEDS: HYDROcodone-ACET 10/325MG TAB PO PRN ×2 (06:32→21:38)
[2022-03-26] MEDS: LEVOTHYROXINE SODIUM 25 MCG TAB PO SCH (06:32)
[2022-03-26] MEDS: LEVOTHYROXINE SODIUM 112 MCG TAB PO SCH (06:32)
[2022-03-26] MEDS: Ensure HIGH Protein Chocolate 8oz Bottle PO SCH ×3 (08:00→18:00)
[2022-03-26 09:00] VITALS: BP 139/64
[2022-03-26] MEDS: ERTAPENEM SOD INJ 1 GM in SODIUM CHL 0.9% 50 ML IV SCH (10:00)
[2022-03-26] MEDS: AMIODARONE HCL 200 MG TAB PO SCH (10:25)
[2022-03-26] MEDS: TAMSULOSIN HYDROCHLORIDE 0.4 MG CAP PO SCH ×2 (10:25→21:38)
[2022-03-26] MEDS: FINASTERIDE 5 MG TAB PO SCH (10:26)
[2022-03-26] MEDS: PANTOPRAZOLE 40 MG TAB PO SCH ×2 (10:26→21:38)
[2022-03-26 13:00] VITALS: BP 114/64
[2022-03-26] MEDS ORDERED: FLUDROCORTISONE ACETATE 0.1 MG TAB PO ONE (16:15)
[2022-03-26 17:00] VITALS: BP 134/62
[2022-03-26] MEDS: SODIUM CHLORIDE 0.9% 1,000 ML IV SCH (21:39)
[2022-03-26] MEDS: AMITRIPTYLINE HCL 25 MG TAB PO SCH (21:39)
[2022-03-26] MEDS: ALLOPURINOL 100 MG TAB PO SCH ×2 (21:40→22:00)
[2022-03-26 22:00] VITALS: BP 112/67
[2022-03-27] VITALS (8 sets, daily range): BP systolic 103–143; BP diastolic 57–82
[2022-03-27 05:23] LABS: Basophils # (auto) 0 10 ^3/uL (0-0.2); Basophils % (auto) 0.9 % (0.0-2.0); Eosinophils # (auto) 0.2 10 ^3/uL (0-0.8); Eosinophils % (auto) 3.9 % (0.0-7.0); Hematocrit 29.6 % (41.0-53.0); Hemoglobin 10.1 g/dL (13.5-17.5); Lymphocytes # (auto) 0.8 10 ^3/uL (0.4-5.4); Lymphocytes % (auto) 19.6 % (10.0-50.0); Mean Corpuscular Hemoglobin 28.8 pg (28.0-32.0); Mean Corpuscular Volume 84.8 fL (80.0-100.0); Monocytes # (auto) 0.5 10 ^3/uL (0-1.3); Monocytes % (auto) 12.3 % (0.0-12.0); Neutrophils # (auto) 2.5 10 ^3/uL (1.6-8.6); Neutrophils % (auto) 63.3 % (37.0-80.0); Nucleated Red Blood Cells % 0.1 %; Red Blood Cells 3.49 10^6/uL (4.5-5.90); Red Cell Distribution Width 15.2 % (11.8-14.3)
[2022-03-27] MEDS: cloNIDine HCL 0.1 MG TAB PO SCH ×2 (05:33→14:00)
[2022-03-27] MEDS: SODIUM CHLORIDE 0.9% 1,000 ML IV SCH ×2 (05:34→20:25)
[2022-03-27 05:36] LABS: Calcium 7.7 mg/dL (8.5-10.1)
[2022-03-27 05:39] LABS: BUN/Creatinine Ratio 25.3; Phosphorus 3.1 mg/dL (2.5-4.90)
[2022-03-27] MEDS: LEVOTHYROXINE SODIUM 112 MCG TAB PO SCH (06:57)
[2022-03-27] MEDS: LEVOTHYROXINE SODIUM 25 MCG TAB PO SCH (06:57)
[2022-03-27] MEDS: HYDROcodone-ACET 10/325MG TAB PO PRN ×2 (06:58→21:49)
[2022-03-27] MEDS: Ensure HIGH Protein Chocolate 8oz Bottle PO SCH ×2 (08:00→12:00)
[2022-03-27] MEDS: AMIODARONE HCL 200 MG TAB PO SCH (09:48)
[2022-03-27] MEDS: TAMSULOSIN HYDROCHLORIDE 0.4 MG CAP PO SCH ×2 (09:48→21:48)
[2022-03-27] MEDS: ERTAPENEM SOD INJ 1 GM in SODIUM CHL 0.9% 50 ML IV SCH (09:48)
[2022-03-27] MEDS: PANTOPRAZOLE 40 MG TAB PO SCH ×2 (09:49→21:49)
[2022-03-27] MEDS: FLUDROCORTISONE ACETATE 0.1 MG TAB PO SCH (09:49)
[2022-03-27] MEDS: ALLOPURINOL 100 MG TAB PO SCH ×2 (09:49→21:54)
[2022-03-27] MEDS: FINASTERIDE 5 MG TAB PO SCH (09:49)
[2022-03-27] MEDS: AMITRIPTYLINE HCL 25 MG TAB PO SCH (22:00)
[2022-03-28 05:00] VITALS: BP 145/66
[2022-03-28] MEDS: LEVOTHYROXINE SODIUM 112 MCG TAB PO SCH (06:12)
[2022-03-28] MEDS: LEVOTHYROXINE SODIUM 25 MCG TAB PO SCH (06:12)
[2022-03-28] MEDS: HYDROcodone-ACET 10/325MG TAB PO PRN (06:13)
[2022-03-28 08:00] VITALS: BP 103/57
[2022-03-28] MEDS: Ensure HIGH Protein Chocolate 8oz Bottle PO SCH ×2 (08:00→12:00)
[2022-03-28 09:00] VITALS: BP 151/77
[2022-03-28] MEDS: SODIUM CHLORIDE 0.9% 1,000 ML IV SCH (09:45)
[2022-03-28] MEDS: ERTAPENEM SOD INJ 1 GM in SODIUM CHL 0.9% 50 ML IV SCH (09:52)
[2022-03-28] MEDS: AMIODARONE HCL 200 MG TAB PO SCH (09:52)
[2022-03-28] MEDS: TAMSULOSIN HYDROCHLORIDE 0.4 MG CAP PO SCH (09:53)
[2022-03-28] MEDS: PANTOPRAZOLE 40 MG TAB PO SCH (09:53)
[2022-03-28] MEDS: FLUDROCORTISONE ACETATE 0.1 MG TAB PO SCH (09:53)
[2022-03-28] MEDS: FINASTERIDE 5 MG TAB PO SCH (09:53)
[2022-03-28] MEDS: ALLOPURINOL 100 MG TAB PO SCH (09:53)
[2022-03-28 13:00] VITALS: BP 150/66
[2022-03-28 14:54] VITALS: BP 103/57
== END 2022-03-28 16:15 | disposition home health service (06) | DRG 242 ==
LOC: ER 15:20 → TELE 03-18 00:01 → TELE-EAST 03-18 15:12
PROVIDERS: ADMIT Nurse Practitioner Family; ATTEND Internal Medicine
PROC: 05HB33Z Insertion of Infusion Device into Right Basilic Vein, Percutaneous Approach (ICD-10-PCS; 2022-03-22)
PROC: B54MZZA Ultrasonography of Right Upper Extremity Veins, Guidance (ICD-10-PCS; 2022-03-22)
PROC: 0JH606Z Insertion of Pacemaker, Dual Chamber into Chest Subcutaneous Tissue and Fascia, Open Approach (ICD-10-PCS; principal; 2022-03-23)
PROC: 02H63JZ Insertion of Pacemaker Lead into Right Atrium, Percutaneous Approach (ICD-10-PCS; 2022-03-23)
PROC: 02HK3JZ Insertion of Pacemaker Lead into Right Ventricle, Percutaneous Approach (ICD-10-PCS; 2022-03-23)
DX: I49.5 Sick sinus syndrome (principal); E43 Unspecified severe protein-calorie malnutrition; J96.11 Chronic respiratory failure with hypoxia; K92.2 Gastrointestinal hemorrhage, unspecified; N17.9 Acute kidney failure, unspecified; N30.00 Acute cystitis without hematuria; I48.91 Unspecified atrial fibrillation; N40.1 Benign prostatic hyperplasia with lower urinary tract symptoms; R29.6 Repeated falls; R33.8 Other retention of urine; K64.9 Unspecified hemorrhoids; M70.32 Other bursitis of elbow, left elbow; Z53.20 Procedure and treatment not carried out because of patient's decision for unspecified reasons; I95.1 Orthostatic hypotension; I10 Essential (primary) hypertension; G89.29 Other chronic pain; M10.9 Gout, unspecified; M25.551 Pain in right hip; M54.50 Low back pain, unspecified; R26.9 Unspecified abnormalities of gait and mobility; W18.39XA Other fall on same level, initial encounter; Z20.822 Contact with and (suspected) exposure to COVID-19; J44.9 Chronic obstructive pulmonary disease, unspecified; Z79.01 Long term (current) use of anticoagulants; Z86.711 Personal history of pulmonary embolism; Z91.81 History of falling; Z68.21 Body mass index [BMI] 21.0-21.9, adult; Z82.49 Family history of ischemic heart disease and other diseases of the circulatory system; Z83.3 Family history of diabetes mellitus; Z85.038 Personal history of other malignant neoplasm of large intestine; Z86.718 Personal history of other venous thrombosis and embolism; Z79.899 Other long term (current) drug therapy; Y93.89 Activity, other specified; Y92.89 Other specified places as the place of occurrence of the external cause; Y99.8 Other external cause status
CPT/HCPCS: 33208; 36415; 36600; 70551; 71045; 71101; 71250; 72125; 73080; 73502; 74176; 80048; 80053; 80061; 81001; 82805; 83735; 83880; 84100; 84154; 84436; 84439; 84443; 84484; 85025; 85379; 85610; 85730; 87086; 87088; 87186; 93005; 93306; 93886; 96361; 96365; 96375; 97110; 97116; 97163; 97530; 99152; 99153; C1785; C9113; G0378; J0696; J1335; J2250; J2405

== ENCOUNTER → 2022-03-17 | Outpatient (CLI) | payer OTHER | END | disposition home or self-care (01) | LOC: LAB 13:03 | PROVIDERS: ATTEND Internal Medicine | DX: Z01.812 Encounter for preprocedural laboratory examination (principal) | CPT/HCPCS: 36415; 82565; 84520 ==

== ENCOUNTER 2022-05-05 15:53 | Inpatient (IN) | payer OTHER, MEDICARE ==
[~2022-05-05] VITALS: Ht 188 cm; Wt 74.0 kg
[~2022-05-05 15:53] MED LIST changes: -BENA40TA83 PO; -CLON0.1T PO; -GABA-339 PO; -LEVO125T7 PO; -MET25T PO; -PRE1T PO
[2022-05-05 18:23] LABS: Basophils # (auto) 0 10 ^3/uL (0-0.2); Basophils % (auto) 0.2 % (0.0-2.0); Eosinophils # (auto) 0 10 ^3/uL (0-0.8); Eosinophils % (auto) 0.1 % (0.0-7.0); Hematocrit 31.2 % (41.0-53.0); Hemoglobin 10.2 g/dL (13.5-17.5); Lymphocytes # (auto) 0.4 10 ^3/uL (0.4-5.4); Mean Corpuscular Hemoglobin 27.8 pg (28.0-32.0); Mean Corpuscular Hgb Conc. 32.6 g/dL (32.0-36.0); Mean Corpuscular Volume 85.4 fL (80.0-100.0); Monocytes # (auto) 0.7 10 ^3/uL (0-1.3); Monocytes % (auto) 6.2 % (0.0-12.0); Neutrophils # (auto) 10.8 10 ^3/uL (1.6-8.6); Neutrophils % (auto) 90.5 % (37.0-80.0); Red Blood Cells 3.65 10^6/uL (4.5-5.90); Red Cell Distribution Width 16.1 % (11.8-14.3); White Blood Cell 11.9 10^3/uL (4.4-10.8)
[2022-05-05 18:37] LABS: Albumin 2.7 g/dL (3.4-5.0); Calcium 7.6 mg/dL (8.5-10.1)
[2022-05-05 18:40] LABS: BUN/Creatinine Ratio 17.4; Bilirubin, Total 0.5 mg/dL (0.2-1.0); Total Protein 5.8 g/dL (6.4-8.2)
[2022-05-05 19:32] LABS: Potassium 2.3 mmol/L (3.5-5.1)
[2022-05-05] MEDS ORDERED: POTASSIUM EFFERVESENT TAB 25 MEQ GT ONE (19:45)
[2022-05-05] MEDS ORDERED: MORPHINE SULFATE INJ 2 MG/ml SYRG IV PRN (21:15)
[2022-05-05] MEDS ORDERED: ACETAMINOPHEN 325 MG TAB PO PRN (21:15)
[2022-05-05] MEDS ORDERED: NITROGLYCERIN 0.4 MG SL TAB SL PRN (21:15)
[2022-05-05] MEDS ORDERED: POTASSIUM EFFERVESENT TAB 25 MEQ PO ONE (21:30)
[2022-05-05] MEDS ORDERED: cefTRIAXone 1GM/50ML D5W 50 ML IV ONE (21:30)
[2022-05-05] MEDS: SODIUM CHLORIDE 0.9% 1,000 ML IV SCH (22:08)
[2022-05-05 22:53] LABS: % Iron Saturation 5.3 % (20-55)
[2022-05-06 02:01] VITALS: BP 157/71
[2022-05-06 05:00] VITALS: BP 165/84
[2022-05-06 06:50] LABS: Basophils # (auto) 0 10 ^3/uL (0-0.2); Basophils % (auto) 0.2 % (0.0-2.0); Eosinophils # (auto) 0 10 ^3/uL (0-0.8); Eosinophils % (auto) 0.1 % (0.0-7.0); Hematocrit 27.6 % (41.0-53.0); Hemoglobin 9.4 g/dL (13.5-17.5); Lymphocytes # (auto) 0.4 10 ^3/uL (0.4-5.4); Lymphocytes % (auto) 5.8 % (10.0-50.0); Mean Corpuscular Hemoglobin 28.9 pg (28.0-32.0); Mean Corpuscular Volume 85.1 fL (80.0-100.0); Monocytes # (auto) 0.3 10 ^3/uL (0-1.3); Monocytes % (auto) 3.3 % (0.0-12.0); Neutrophils # (auto) 6.9 10 ^3/uL (1.6-8.6); Neutrophils % (auto) 90.6 % (37.0-80.0); Red Blood Cells 3.25 10^6/uL (4.5-5.90); White Blood Cell 7.6 10^3/uL (4.4-10.8)
[2022-05-06 07:12] LABS: Potassium 3.2 mmol/L (3.5-5.1)
[2022-05-06 07:24] LABS: Albumin 2.4 g/dL (3.4-5.0); BUN/Creatinine Ratio 18.5; Bilirubin, Total 0.5 mg/dL (0.2-1.0); Calcium 7.1 mg/dL (8.5-10.1); Total Protein 5.2 g/dL (6.4-8.2)
[2022-05-06] MEDS ORDERED: cefTRIAXone 1GM/50ML D5W 50 ML IV SCH (09:00)
[2022-05-06 09:43] VITALS: BP 134/83
[2022-05-06] MEDS ORDERED: ENOXAPARIN SOD 40 MG/0.4 ML SYRINGE SC SCH (10:00)
[2022-05-06 12:46] VITALS: BP 145/71
[2022-05-06 12:46] LABS: Urine Bacteria MANY /hpf (None Seen); Urine Blood 1+ /uL (Negative); Urine Hyaline Cast MANY /lpf (0 - 2); Urine Mucus MANY (None Seen); Urine Specific Gravity 1.017 (1.001-1.035); Urine WBC 411 /hpf (0 - 3)
[2022-05-06 12:48] LABS: Amphetamine Screen, Urine NEGATIVE (NEGATIVE); Barbiturate Scree,Urine NEGATIVE (NEGATIVE); Benzodiazephine Screen, Urine NEGATIVE (NEGATIVE); Cannabinoid Screen, Urine NEGATIVE (NEGATIVE); Cocaine Screen, Urine NEGATIVE (NEGATIVE); Opiate Scree,Urine POSITIVE (NEGATIVE); Phencyclidine Screen, Urine NEGATIVE (NEGATIVE)
[2022-05-06] MEDS ORDERED: POTASSIUM CHL 20 Meq TABLET PO ONE (13:45)
[2022-05-06] MEDS: SODIUM CHLORIDE 0.9% 1,000 ML IV SCH (13:55)
[2022-05-06] MEDS ORDERED: ERTAPENEM SOD INJ 1 GM in SODIUM CHL 0.9% 50 ML IV ONE (13:58)
[2022-05-06 17:00] VITALS: BP 159/71
[2022-05-06] MEDS: TAMSULOSIN HYDROCHLORIDE 0.4 MG CAP PO SCH (17:57)
[2022-05-06] MEDS: Ensure HIGH Protein Chocolate 8oz Bottle PO SCH (17:57)
[2022-05-06 20:00] VITALS: BP 146/68
[2022-05-06] MEDS: AMIODARONE HCL 200 MG TAB PO SCH (21:04)
[2022-05-06] MEDS: APIXABAN 2.5 MG TAB PO SCH (21:09)
[2022-05-07 05:00] VITALS: BP 169/77
[2022-05-07] MEDS: SODIUM CHLORIDE 0.9% 1,000 ML IV SCH ×2 (06:35→09:13)
[2022-05-07] MEDS: LEVOTHYROXINE SODIUM 25 MCG TAB PO SCH (06:42)
[2022-05-07 08:03] LABS: Basophils # (auto) 0 10 ^3/uL (0-0.2); Basophils % (auto) 0.3 % (0.0-2.0); Eosinophils # (auto) 0 10 ^3/uL (0-0.8); Eosinophils % (auto) 0.4 % (0.0-7.0); Hemoglobin 8.2 g/dL (13.5-17.5); Lymphocytes # (auto) 0.4 10 ^3/uL (0.4-5.4); Mean Corpuscular Hemoglobin 27.8 pg (28.0-32.0); Monocytes # (auto) 0.4 10 ^3/uL (0-1.3); Red Blood Cells 2.96 10^6/uL (4.5-5.90)
[2022-05-07 08:06] LABS: Hematocrit 25.3 % (41.0-53.0); Lymphocytes % (auto) 7.4 % (10.0-50.0); Mean Corpuscular Hgb Conc. 32.4 g/dL (32.0-36.0); Mean Corpuscular Volume 85.6 fL (80.0-100.0); Neutrophils % (auto) 84.9 % (37.0-80.0); White Blood Cell 5.8 10^3/uL (4.4-10.8)
[2022-05-07 08:40] LABS: Calcium 6.9 mg/dL (8.5-10.1); Potassium 3.3 mmol/L (3.5-5.1)
[2022-05-07 08:44] LABS: BUN/Creatinine Ratio 27.8
[2022-05-07 09:00] VITALS: BP 136/71
[2022-05-07] MEDS: AMIODARONE HCL 200 MG TAB PO SCH ×2 (09:08→21:12)
[2022-05-07] MEDS: ALLOPURINOL 100 MG TAB PO SCH (09:08)
[2022-05-07] MEDS: PANTOPRAZOLE 40 MG TAB PO SCH (09:08)
[2022-05-07] MEDS: Ensure HIGH Protein Chocolate 8oz Bottle PO SCH ×2 (09:09→18:17)
[2022-05-07] MEDS: ERTAPENEM SOD INJ 1 GM in SODIUM CHL 0.9% 50 ML IV SCH (09:09)
[2022-05-07] MEDS: APIXABAN 2.5 MG TAB PO SCH (09:09)
[2022-05-07] MEDS ORDERED: POTASSIUM CHL 20 Meq TABLET PO ONE (11:30)
[2022-05-07 13:00] VITALS: BP 160/80
[2022-05-07] MEDS: HYDROcodone-ACET 10/325MG TAB PO PRN (13:25)
[2022-05-07 17:00] VITALS: BP 150/67
[2022-05-07] MEDS: TAMSULOSIN HYDROCHLORIDE 0.4 MG CAP PO SCH (17:28)
[2022-05-07 22:00] VITALS: BP 141/82
[2022-05-08 05:00] VITALS: BP 128/77
[2022-05-08] MEDS: LEVOTHYROXINE SODIUM 25 MCG TAB PO SCH (06:09)
[2022-05-08 06:41] LABS: INR 1.07 (0.9-1.15)
[2022-05-08 06:49] LABS: Basophils # (auto) 0 10 ^3/uL (0-0.2); Hemoglobin 8.4 g/dL (13.5-17.5); Lymphocytes # (auto) 0.7 10 ^3/uL (0.4-5.4); Mean Corpuscular Volume 84.7 fL (80.0-100.0); Monocytes # (auto) 0.4 10 ^3/uL (0-1.3); Nucleated Red Blood Cells % 0.1 %; White Blood Cell 4.3 10^3/uL (4.4-10.8)
[2022-05-08 06:52] LABS: Basophils % (auto) 0.3 % (0.0-2.0); Eosinophils # (auto) 0.2 10 ^3/uL (0-0.8); Eosinophils % (auto) 3.6 % (0.0-7.0); Hematocrit 24.7 % (41.0-53.0); Lymphocytes % (auto) 16.3 % (10.0-50.0); Mean Corpuscular Hemoglobin 28.7 pg (28.0-32.0); Mean Corpuscular Hgb Conc. 33.9 g/dL (32.0-36.0); Monocytes % (auto) 8.3 % (0.0-12.0); Neutrophils % (auto) 71.5 % (37.0-80.0); Red Blood Cells 2.91 10^6/uL (4.5-5.90); Red Cell Distribution Width 15.8 % (11.8-14.3)
[2022-05-08 07:15] LABS: BUN/Creatinine Ratio 30.3; Calcium 7.5 mg/dL (8.5-10.1); Potassium 3.3 mmol/L (3.5-5.1)
[2022-05-08 08:00] VITALS: BP 139/69
[2022-05-08] MEDS: Ensure HIGH Protein Chocolate 8oz Bottle PO SCH ×2 (08:13→17:54)
[2022-05-08 09:00] VITALS: BP 139/69
[2022-05-08] MEDS: ASPirin 81 mg TAB PO SCH (11:00)
[2022-05-08] MEDS: HYDROcodone-ACET 10/325MG TAB PO PRN (11:01)
[2022-05-08] MEDS: ALLOPURINOL 100 MG TAB PO SCH (11:02)
[2022-05-08] MEDS: PANTOPRAZOLE 40 MG TAB PO SCH (11:03)
[2022-05-08] MEDS: ERTAPENEM SOD INJ 1 GM in SODIUM CHL 0.9% 50 ML IV SCH (11:03)
[2022-05-08] MEDS: AMIODARONE HCL 200 MG TAB PO SCH ×2 (11:04→20:42)
[2022-05-08] MEDS ORDERED: POTASSIUM EFFERVESENT TAB 25 MEQ PO ONE (12:00)
[2022-05-08 13:00] VITALS: BP 122/72
[2022-05-08] MEDS ORDERED: FLUD0.1T2 PO (15:01)
[2022-05-08] MEDS ORDERED: FLUT1AER3 IN (15:01)
[2022-05-08 17:00] VITALS: BP 141/74
[2022-05-08] MEDS: TAMSULOSIN HYDROCHLORIDE 0.4 MG CAP PO SCH (17:54)
[2022-05-08 22:00] VITALS: BP 141/75
[2022-05-09] VITALS (7 sets, daily range): BP systolic 138–158; BP diastolic 75–88
[2022-05-09] MEDS: LEVOTHYROXINE SODIUM 25 MCG TAB PO SCH (06:10)
[2022-05-09 06:19] LABS: Basophils # (auto) 0 10 ^3/uL (0-0.2); Basophils % (auto) 0.6 % (0.0-2.0); Eosinophils # (auto) 0.3 10 ^3/uL (0-0.8); Hematocrit 25.2 % (41.0-53.0); Hemoglobin 8.6 g/dL (13.5-17.5); Lymphocytes % (auto) 21.8 % (10.0-50.0); Mean Corpuscular Hemoglobin 28.3 pg (28.0-32.0); Mean Corpuscular Hgb Conc. 33.9 g/dL (32.0-36.0); Mean Corpuscular Volume 83.4 fL (80.0-100.0); Monocytes # (auto) 0.4 10 ^3/uL (0-1.3); Monocytes % (auto) 7.9 % (0.0-12.0); Neutrophils # (auto) 2.8 10 ^3/uL (1.6-8.6); Neutrophils % (auto) 63.7 % (37.0-80.0); Red Blood Cells 3.03 10^6/uL (4.5-5.90); Red Cell Distribution Width 15.6 % (11.8-14.3); White Blood Cell 4.5 10^3/uL (4.4-10.8)
[2022-05-09 06:43] LABS: BUN/Creatinine Ratio 23.9; Calcium 7.5 mg/dL (8.5-10.1); Potassium 3.5 mmol/L (3.5-5.1)
[2022-05-09] MEDS: Ensure HIGH Protein Chocolate 8oz Bottle PO SCH ×2 (07:31→18:29)
[2022-05-09] MEDS: ASPirin 81 mg TAB PO SCH (10:19)
[2022-05-09] MEDS: ERTAPENEM SOD INJ 1 GM in SODIUM CHL 0.9% 50 ML IV SCH (10:19)
[2022-05-09] MEDS: ALLOPURINOL 100 MG TAB PO SCH (10:20)
[2022-05-09] MEDS: PANTOPRAZOLE 40 MG TAB PO SCH (10:20)
[2022-05-09] MEDS: AMIODARONE HCL 200 MG TAB PO SCH ×2 (10:20→22:01)
[2022-05-09] MEDS ORDERED: LACTULOSE 20Gm/30ML SOLN PO ONE (11:45)
[2022-05-09] MEDS: TAMSULOSIN HYDROCHLORIDE 0.4 MG CAP PO SCH (18:29)
[2022-05-10 05:00] VITALS: BP 153/88
[2022-05-10] MEDS: LEVOTHYROXINE SODIUM 112 MCG TAB PO SCH (06:43)
[2022-05-10] MEDS: LEVOTHYROXINE SODIUM 25 MCG TAB PO SCH (06:44)
[2022-05-10 09:00] VITALS: BP 143/77
[2022-05-10] MEDS: Ensure HIGH Protein Chocolate 8oz Bottle PO SCH ×2 (09:26→17:26)
[2022-05-10] MEDS: ASPirin 81 mg TAB PO SCH (09:50)
[2022-05-10] MEDS: PANTOPRAZOLE 40 MG TAB PO SCH (09:50)
[2022-05-10] MEDS: ERTAPENEM SOD INJ 1 GM in SODIUM CHL 0.9% 50 ML IV SCH (09:50)
[2022-05-10] MEDS: AMIODARONE HCL 200 MG TAB PO SCH ×2 (09:51→22:13)
[2022-05-10] MEDS: ALLOPURINOL 100 MG TAB PO SCH (09:51)
[2022-05-10 13:00] VITALS: BP 150/76
[2022-05-10 14:28] LABS: Urine Bacteria NONE SEEN /hpf (None Seen); Urine Blood Negative /uL (Negative); Urine Hyaline Cast FEW /lpf (0 - 2); Urine Specific Gravity 1.016 (1.001-1.035); Urine WBC 11 /hpf (0 - 3)
[2022-05-10 17:00] VITALS: BP 157/84
[2022-05-10] MEDS: TAMSULOSIN HYDROCHLORIDE 0.4 MG CAP PO SCH (17:26)
[2022-05-10 22:00] VITALS: BP 142/80
[2022-05-11 05:00] VITALS: BP 165/79
[2022-05-11] MEDS: LEVOTHYROXINE SODIUM 25 MCG TAB PO SCH (06:32)
[2022-05-11] MEDS: LEVOTHYROXINE SODIUM 112 MCG TAB PO SCH (06:32)
[2022-05-11] MEDS: Ensure HIGH Protein Chocolate 8oz Bottle PO SCH ×2 (08:00→17:13)
[2022-05-11 09:00] VITALS: BP 154/83
[2022-05-11] MEDS: AMIODARONE HCL 200 MG TAB PO SCH ×2 (10:08→21:58)
[2022-05-11] MEDS: ASPirin 81 mg TAB PO SCH (10:08)
[2022-05-11] MEDS: ALLOPURINOL 100 MG TAB PO SCH (10:08)
[2022-05-11] MEDS: PANTOPRAZOLE 40 MG TAB PO SCH (10:08)
[2022-05-11] MEDS: ERTAPENEM SOD INJ 1 GM in SODIUM CHL 0.9% 50 ML IV SCH (10:09)
[2022-05-11 13:00] VITALS: BP 149/77
[2022-05-11 15:56] VITALS: BP_SYST 103; BP_SYST 137; BP_DIAS 56; BP_DIAS 69
[2022-05-11] MEDS ORDERED: FLUDROCORTISONE ACETATE 0.1 MG TAB PO ONE (16:00)
[2022-05-11 17:00] VITALS: BP 137/69
[2022-05-11] MEDS: TAMSULOSIN HYDROCHLORIDE 0.4 MG CAP PO SCH (17:24)
[2022-05-11 21:38] VITALS: BP 146/63
[2022-05-12 04:48] VITALS: BP 166/66
[2022-05-12] MEDS: LEVOTHYROXINE SODIUM 25 MCG TAB PO SCH (06:49)
[2022-05-12] MEDS: LEVOTHYROXINE SODIUM 112 MCG TAB PO SCH (06:49)
[2022-05-12] MEDS: Ensure HIGH Protein Chocolate 8oz Bottle PO SCH (08:00)
[2022-05-12 09:00] VITALS: BP 146/84
[2022-05-12] MEDS: ERTAPENEM SOD INJ 1 GM in SODIUM CHL 0.9% 50 ML IV SCH (09:19)
[2022-05-12] MEDS: ASPirin 81 mg TAB PO SCH (09:19)
[2022-05-12] MEDS: PANTOPRAZOLE 40 MG TAB PO SCH (09:20)
[2022-05-12] MEDS: ALLOPURINOL 100 MG TAB PO SCH (09:20)
[2022-05-12] MEDS: AMIODARONE HCL 200 MG TAB PO SCH (09:20)
[2022-05-12] MEDS ORDERED: FLUDROCORTISONE ACETATE 0.1 MG TAB PO SCH (10:00)
[2022-05-12] MEDS ORDERED: NEOMYCIN-BACITRACIN-POLYM UNITDOSE PKG TOP OINT TOP SCH (10:00)
[2022-05-12 13:31] VITALS: BP_SYST 103; BP_SYST 136; BP_DIAS 70; BP_DIAS 71; BP_DIAS 72
[2022-05-12 14:48] VITALS: BP 136/72
== END 2022-05-12 17:00 | disposition home health service (06) | DRG 871 ==
LOC: ER 15:53 → TELE 21:20 → TELE-WESTW 23:34
PROVIDERS: ADMIT Nurse Practitioner Family; ATTEND Internal Medicine
PROC: 05HC33Z Insertion of Infusion Device into Left Basilic Vein, Percutaneous Approach (ICD-10-PCS; principal; 2022-05-11)
PROC: B54NZZA Ultrasonography of Left Upper Extremity Veins, Guidance (ICD-10-PCS; 2022-05-11)
DX: A41.51 Sepsis due to Escherichia coli [E. coli] (principal); N17.0 Acute kidney failure with tubular necrosis; E44.0 Moderate protein-calorie malnutrition; J96.10 Chronic respiratory failure, unspecified whether with hypoxia or hypercapnia; J44.1 Chronic obstructive pulmonary disease with (acute) exacerbation; N39.0 Urinary tract infection, site not specified; D68.69 Other thrombophilia; Z16.12 Extended spectrum beta lactamase (ESBL) resistance; E83.51 Hypocalcemia; R73.9 Hyperglycemia, unspecified; E87.6 Hypokalemia; N18.30 Chronic kidney disease, stage 3 unspecified; I48.91 Unspecified atrial fibrillation; Z68.21 Body mass index [BMI] 21.0-21.9, adult; E03.9 Hypothyroidism, unspecified; G89.29 Other chronic pain; N40.0 Benign prostatic hyperplasia without lower urinary tract symptoms; H35.00 Unspecified background retinopathy; H54.61 Unqualified visual loss, right eye, normal vision left eye; I12.9 Hypertensive chronic kidney disease with stage 1 through stage 4 chronic kidney disease, or unspecified chronic kidney disease; I95.1 Orthostatic hypotension; M54.50 Low back pain, unspecified; M54.9 Dorsalgia, unspecified; M10.9 Gout, unspecified; R29.6 Repeated falls; Z85.038 Personal history of other malignant neoplasm of large intestine; Z86.711 Personal history of pulmonary embolism; Z95.0 Presence of cardiac pacemaker; Z79.890 Hormone replacement therapy
CPT/HCPCS: 36415; 70450; 71045; 72131; 73030; 76775; 80048; 80053; 80307; 81001; 82962; 83036; 83540; 83550; 83605; 83735; 84100; 84132; 84443; 85025; 85610; 85730; 87040; 87077; 87086; 87088; 87186; 87426; 93886; 96365; 97110; 97116; 97163; 97530; G0378; J0696; J1335

== ENCOUNTER 2022-07-12 09:53 | Inpatient (IN) | payer OTHER, MEDICARE ==
[~2022-07-12] VITALS: Ht 177.8 cm; Wt 85.0 kg
[2022-07-12] MEDS: POTASSIUM CHL 20MEQ/100ML 100 ML IV SCH ×3 (01:30→23:00)
[~2022-07-12 09:53] MED LIST changes: -ALLO100T PO; -APIX2.5T PO; +FLUD0.1T2 PO; +FLUT1AER3 IN; -OMEP40CA33 PO
[2022-07-12 10:48] LABS: Basophils # (auto) 0 10 ^3/uL (0-0.2); Basophils % (auto) 0.7 % (0.0-2.0); Eosinophils # (auto) 0.3 10 ^3/uL (0-0.8); Eosinophils % (auto) 5.1 % (0.0-7.0); Hematocrit 31.4 % (41.0-53.0); Hemoglobin 10.4 g/dL (13.5-17.5); Lymphocytes # (auto) 0.8 10 ^3/uL (0.4-5.4); Lymphocytes % (auto) 16.2 % (10.0-50.0); Mean Corpuscular Hemoglobin 28.2 pg (28.0-32.0); Mean Corpuscular Hgb Conc. 33.2 g/dL (32.0-36.0); Monocytes # (auto) 0.3 10 ^3/uL (0-1.3); Monocytes % (auto) 5.9 % (0.0-12.0); Neutrophils # (auto) 3.7 10 ^3/uL (1.6-8.6); Neutrophils % (auto) 72.1 % (37.0-80.0); Nucleated Red Blood Cells % 0.1 %; Red Cell Distribution Width 17.2 % (11.8-14.3); White Blood Cell 5.1 10^3/uL (4.4-10.8)
[2022-07-12 11:22] LABS: Albumin 2.4 g/dL (3.4-5.0); Calcium 7.9 mg/dL (8.5-10.1); INR 1.15 (0.9-1.15); Partial Thromboplastin Time 27.8 sec (24.6-33.4)
[2022-07-12 11:24] LABS: BUN/Creatinine Ratio 19.7
[2022-07-12 11:27] LABS: Bilirubin, Total 0.5 mg/dL (0.2-1.0)
[2022-07-12 11:36] LABS: Potassium 2.8 mmol/L (3.5-5.1)
[2022-07-12] MEDS ORDERED: POTASSIUM EFFERVESENT TAB 25 MEQ PO ONE (11:45)
[2022-07-12] MEDS ORDERED: NITROGLYCERIN 0.4 MG SL TAB SL PRN (14:30)
[2022-07-12 15:45] LABS: Cholesterol 150 mg/dL (< 200); HDL Cholesterol 51 mg/dL (40-59); Triglycerides 87 mg/dL (< 150)
[2022-07-12 15:46] LABS: LDL Cholesterol 85 mg/dL (< 100)
[2022-07-12 16:03] LABS: INR 1.15 (0.9-1.15)
[2022-07-12] MEDS: SOD CHL 0.45% 1,000 ML IV SCH (22:02)
[2022-07-12] MEDS: AMITRIPTYLINE HCL 25 MG TAB PO SCH (23:01)
[2022-07-12] MEDS: TAMSULOSIN HYDROCHLORIDE 0.4 MG CAP PO SCH (23:01)
[2022-07-12] MEDS: AMIODARONE HCL 200 MG TAB PO SCH (23:01)
[2022-07-13] MEDS: NEOMYCIN-BACITRACIN-POLYM 15GM TOP OINT TOP SCH ×3 (00:54→22:43)
[2022-07-13] MEDS: POTASSIUM CHL 20MEQ/100ML 100 ML IV SCH (03:18)
[2022-07-13 06:35] LABS: Basophils # (auto) 0 10 ^3/uL (0-0.2); Basophils % (auto) 0.7 % (0.0-2.0); Eosinophils # (auto) 0.2 10 ^3/uL (0-0.8); Eosinophils % (auto) 4.4 % (0.0-7.0); Hematocrit 26.2 % (41.0-53.0); Hemoglobin 8.7 g/dL (13.5-17.5); Lymphocytes # (auto) 0.9 10 ^3/uL (0.4-5.4); Lymphocytes % (auto) 18.8 % (10.0-50.0); Mean Corpuscular Hemoglobin 28.1 pg (28.0-32.0); Mean Corpuscular Hgb Conc. 33.1 g/dL (32.0-36.0); Mean Corpuscular Volume 84.9 fL (80.0-100.0); Monocytes # (auto) 0.3 10 ^3/uL (0-1.3); Monocytes % (auto) 6.2 % (0.0-12.0); Neutrophils # (auto) 3.5 10 ^3/uL (1.6-8.6); Neutrophils % (auto) 69.9 % (37.0-80.0); Red Blood Cells 3.08 10^6/uL (4.5-5.90); Red Cell Distribution Width 17.7 % (11.8-14.3); White Blood Cell 4.9 10^3/uL (4.4-10.8)
[2022-07-13 06:54] LABS: Potassium 3.4 mmol/L (3.5-5.1)
[2022-07-13] MEDS: SOD CHL 0.45% 1,000 ML IV SCH ×2 (06:56→21:15)
[2022-07-13] MEDS: LEVOTHYROXINE SODIUM 112 MCG TAB PO SCH (07:01)
[2022-07-13] MEDS: LEVOTHYROXINE SODIUM 25 MCG TAB PO SCH (07:01)
[2022-07-13 07:03] LABS: Albumin 2.1 g/dL (3.4-5.0); BUN/Creatinine Ratio 22.1; Calcium 7.4 mg/dL (8.5-10.1); Total Protein 4.5 g/dL (6.4-8.2)
[2022-07-13 07:05] LABS: Bilirubin, Total 0.4 mg/dL (0.2-1.0)
[2022-07-13] MEDS: TAMSULOSIN HYDROCHLORIDE 0.4 MG CAP PO SCH (09:07)
[2022-07-13] MEDS: ENOXAPARIN SOD 40 MG/0.4 ML SYRINGE SC SCH (09:07)
[2022-07-13] MEDS: AMIODARONE HCL 200 MG TAB PO SCH ×2 (09:08→22:42)
[2022-07-13] MEDS ORDERED: POTASSIUM CHL 20 Meq TABLET PO ONE (14:15)
[2022-07-13 22:00] VITALS: BP_SYST 140; BP_SYST 95; BP_DIAS 51; BP_DIAS 71
[2022-07-13] MEDS: METOPROLOL TARTRATE 25 MG TAB PO SCH (22:42)
[2022-07-13 23:53] LABS: Amphetamine Screen, Urine NEGATIVE (NEGATIVE); Barbiturate Scree,Urine NEGATIVE (NEGATIVE); Benzodiazephine Screen, Urine NEGATIVE (NEGATIVE); Cannabinoid Screen, Urine NEGATIVE (NEGATIVE); Cocaine Screen, Urine NEGATIVE (NEGATIVE); Opiate Scree,Urine POSITIVE (NEGATIVE); Phencyclidine Screen, Urine NEGATIVE (NEGATIVE)
[2022-07-14 00:08] LABS: Urine Bacteria MANY /hpf (None Seen); Urine Blood Negative /uL (Negative); Urine Mucus FEW (None Seen); Urine Specific Gravity 1.033 (1.001-1.035); Urine WBC 83 /hpf (0 - 3)
[2022-07-14 05:00] VITALS: BP 132/75
[2022-07-14] MEDS: SOD CHL 0.45% 1,000 ML IV SCH ×2 (05:47→16:50)
[2022-07-14] MEDS: LEVOTHYROXINE SODIUM 112 MCG TAB PO SCH (05:48)
[2022-07-14] MEDS: LEVOTHYROXINE SODIUM 25 MCG TAB PO SCH (05:48)
[2022-07-14 08:52] VITALS: BP 153/88
[2022-07-14] MEDS: AMIODARONE HCL 200 MG TAB PO SCH ×2 (08:56→21:40)
[2022-07-14] MEDS: ENOXAPARIN SOD 40 MG/0.4 ML SYRINGE SC SCH (08:56)
[2022-07-14] MEDS: METOPROLOL TARTRATE 25 MG TAB PO SCH ×2 (08:57→21:40)
[2022-07-14] MEDS: NEOMYCIN-BACITRACIN-POLYM 15GM TOP OINT TOP SCH ×2 (09:02→22:00)
[2022-07-14 10:07] LABS: Immunoglobulin G, Serum 958 mg/dL (603-1613)
[2022-07-14 11:12] LABS: Calcium 7.4 mg/dL (8.5-10.1); Potassium 3.2 mmol/L (3.5-5.1)
[2022-07-14 12:33] LABS: Urine Bacteria MOD /hpf (None Seen); Urine Blood Negative /uL (Negative); Urine Mucus FEW (None Seen); Urine Specific Gravity 1.019 (1.001-1.035); Urine WBC 71 /hpf (0 - 3)
[2022-07-14 13:00] VITALS: BP 141/80
[2022-07-14] MEDS ORDERED: ERTAPENEM SOD INJ 1 GM in SODIUM CHL 0.9% 50 ML IV ONE (14:00)
[2022-07-14] MEDS ORDERED: POTASSIUM CHL 20 Meq TABLET PO ONE (14:00)
[2022-07-14] MEDS ORDERED: HYDROCORTISONE SOD SUCC 100 MG/2ML INJ VIAL IV ONE (14:00)
[2022-07-14 16:55] VITALS: BP 159/90
[2022-07-14] MEDS: HYDROCORTISONE SOD SUCC 100 MG/2ML INJ VIAL IV SCH (21:39)
[2022-07-14] MEDS: AMITRIPTYLINE HCL 25 MG TAB PO SCH (21:41)
[2022-07-14 22:00] VITALS: BP 152/92
[2022-07-15 05:00] VITALS: BP 158/96
[2022-07-15 06:32] LABS: Basophils # (auto) 0 10 ^3/uL (0-0.2); Basophils % (auto) 0.1 % (0.0-2.0); Eosinophils # (auto) 0 10 ^3/uL (0-0.8); Eosinophils % (auto) 0.1 % (0.0-7.0); Hematocrit 30.6 % (41.0-53.0); Lymphocytes # (auto) 0.5 10 ^3/uL (0.4-5.4); Lymphocytes % (auto) 9.8 % (10.0-50.0); Mean Corpuscular Hemoglobin 27.7 pg (28.0-32.0); Mean Corpuscular Hgb Conc. 32.7 g/dL (32.0-36.0); Mean Corpuscular Volume 84.7 fL (80.0-100.0); Monocytes # (auto) 0.1 10 ^3/uL (0-1.3); Monocytes % (auto) 1.9 % (0.0-12.0); Neutrophils # (auto) 4.2 10 ^3/uL (1.6-8.6); Neutrophils % (auto) 88.1 % (37.0-80.0); Nucleated Red Blood Cells % 0.1 %; Red Blood Cells 3.61 10^6/uL (4.5-5.90); Red Cell Distribution Width 17.3 % (11.8-14.3); White Blood Cell 4.8 10^3/uL (4.4-10.8)
[2022-07-15 06:41] LABS: Potassium 4.2 mmol/L (3.5-5.1)
[2022-07-15 06:51] LABS: BUN/Creatinine Ratio 28.3; Calcium 7.6 mg/dL (8.5-10.1); Magnesium 1.8 mg/dL (1.6-2.6); Phosphorus 3.7 mg/dL (2.5-4.90)
[2022-07-15] MEDS: LEVOTHYROXINE SODIUM 25 MCG TAB PO SCH (07:17)
[2022-07-15] MEDS: LEVOTHYROXINE SODIUM 112 MCG TAB PO SCH (07:18)
[2022-07-15 08:53] VITALS: BP 133/88
[2022-07-15] MEDS: SOD CHL 0.45% 1,000 ML IV SCH ×2 (08:57→22:45)
[2022-07-15] MEDS: ERTAPENEM SOD INJ 1 GM in SODIUM CHL 0.9% 50 ML IV SCH (08:58)
[2022-07-15] MEDS: HYDROCORTISONE SOD SUCC 100 MG/2ML INJ VIAL IV SCH (08:59)
[2022-07-15] MEDS ORDERED: LIDOCAINE 2% JELLY 11ml (GLYDO) UR ONE (09:00)
[2022-07-15] MEDS: AMIODARONE HCL 200 MG TAB PO SCH ×2 (09:00→22:45)
[2022-07-15] MEDS: ENOXAPARIN SOD 40 MG/0.4 ML SYRINGE SC SCH (09:00)
[2022-07-15] MEDS: NEOMYCIN-BACITRACIN-POLYM 15GM TOP OINT TOP SCH (09:02)
[2022-07-15] MEDS: METOPROLOL TARTRATE 25 MG TAB PO SCH ×2 (09:02→22:46)
[2022-07-15 13:00] VITALS: BP 133/80
[2022-07-15] MEDS: MORPHINE SULFATE INJ 2 MG/ml SYRG IV PRN ×3 (14:58→22:47)
[2022-07-15] MEDS ORDERED: LIDOCAINE 2% JELLY 11ml (GLYDO) ONE (15:19)
[2022-07-15] MEDS ORDERED: CIPROFLOXACIN 400MG/200ML 200 ML IV ONE (15:47)
[2022-07-15] MEDS ORDERED: GLYCOPYRROLATE 0.2 MG/ML 1ML VIAL ONE (15:54)
[2022-07-15] MEDS ORDERED: PROPOFOL 10 MG/ML 20 ML IV ONE ×3 (15:54→16:46)
[2022-07-15] MEDS ORDERED: LIDOCAINE 1% (LOCAL ANESTH.) PF 5ml SDV ONE (15:54)
[2022-07-15] MEDS ORDERED: ONDANSETRON HCL 4 MG/2 ML VIAL ONE (15:54)
[2022-07-15] MEDS ORDERED: DexAMETHasone SOD PHOS 10MG/1ML VIAL INJ ONE (15:54)
[2022-07-15] MEDS ORDERED: fentaNYL CITRATE 100 MCG/2 ML VL ONE (17:06)
[2022-07-15] MEDS ORDERED: fentaNYL CITRATE 100 MCG/2 ML VL IV PRN (17:15)
[2022-07-15] MEDS ORDERED: LABETALOL HCL 5 MG/ML 4ML SYRINGE IV PRN (17:15)
[2022-07-15] MEDS ORDERED: ONDANSETRON HCL 4 MG/2 ML VIAL IV PRN (17:15)
[2022-07-15] MEDS ORDERED: FLUMAZENIL 0.1 MG/ML INJ 10ML MDV IV PRN (17:15)
[2022-07-15] MEDS ORDERED: hydrALAZINE HCL 20 MG/ML VL IV PRN (17:15)
[2022-07-15] MEDS ORDERED: HYDROmorphone HCL 2 MG/ML VL/or syr IV PRN (17:15)
[2022-07-15] MEDS ORDERED: ePHEDrine SULFATE 50 MG/ML AMP IV PRN (17:15)
[2022-07-15] MEDS ORDERED: NALOXONE HCL 0.4 MG/ML VIAL IV PRN (17:15)
[2022-07-15] MEDS: Ensure HIGH Protein Chocolate 8oz Bottle PO SCH (18:00)
[2022-07-15] MEDS: traMADol HCL 50 MG TAB PO PRN (18:28)
[2022-07-15 22:00] VITALS: BP 127/75
[2022-07-15] MEDS: AMITRIPTYLINE HCL 25 MG TAB PO SCH (22:00)
[2022-07-16] MEDS: HYDROCORTISONE SOD SUCC 100 MG/2ML INJ VIAL IV SCH ×3 (00:35→21:17)
[2022-07-16] MEDS: NEOMYCIN-BACITRACIN-POLYM 15GM TOP OINT TOP SCH ×3 (00:35→21:38)
[2022-07-16] MEDS: MORPHINE SULFATE INJ 2 MG/ml SYRG IV PRN ×5 (03:27→20:13)
[2022-07-16 04:30] VITALS: BP 132/79
[2022-07-16] MEDS: LEVOTHYROXINE SODIUM 112 MCG TAB PO SCH (07:25)
[2022-07-16] MEDS: LEVOTHYROXINE SODIUM 25 MCG TAB PO SCH (07:25)
[2022-07-16] MEDS: SOD CHL 0.45% 1,000 ML IV SCH ×2 (07:27→21:38)
[2022-07-16 07:30] LABS: Basophils # (auto) 0 10 ^3/uL (0-0.2); Basophils % (auto) 0.1 % (0.0-2.0); Eosinophils # (auto) 0 10 ^3/uL (0-0.8); Hematocrit 32.4 % (41.0-53.0); Lymphocytes # (auto) 0.6 10 ^3/uL (0.4-5.4); Mean Corpuscular Hemoglobin 27.5 pg (28.0-32.0); Mean Corpuscular Hgb Conc. 30.8 g/dL (32.0-36.0); Mean Corpuscular Volume 89.5 fL (80.0-100.0); Monocytes # (auto) 0.2 10 ^3/uL (0-1.3); Monocytes % (auto) 1.9 % (0.0-12.0); Neutrophils # (auto) 8.4 10 ^3/uL (1.6-8.6); Nucleated Red Blood Cells % 0.1 %; Red Blood Cells 3.62 10^6/uL (4.5-5.90); Red Cell Distribution Width 17.9 % (11.8-14.3); White Blood Cell 9.2 10^3/uL (4.4-10.8)
[2022-07-16 08:24] LABS: BUN/Creatinine Ratio 30.3; Calcium 7.6 mg/dL (8.5-10.1); Potassium 4.7 mmol/L (3.5-5.1)
[2022-07-16] MEDS: traMADol HCL 50 MG TAB PO PRN (08:32)
[2022-07-16 09:00] VITALS: BP 128/72
[2022-07-16] MEDS: ERTAPENEM SOD INJ 1 GM in SODIUM CHL 0.9% 50 ML IV SCH (09:36)
[2022-07-16] MEDS: METOPROLOL TARTRATE 25 MG TAB PO SCH ×2 (09:37→21:19)
[2022-07-16] MEDS: ENOXAPARIN SOD 40 MG/0.4 ML SYRINGE SC SCH (09:37)
[2022-07-16] MEDS: AMIODARONE HCL 200 MG TAB PO SCH ×2 (09:37→21:19)
[2022-07-16] MEDS: Ensure HIGH Protein Chocolate 8oz Bottle PO SCH ×2 (11:44→18:17)
[2022-07-16 13:00] VITALS: BP 120/73
[2022-07-16 17:00] VITALS: BP 128/76
[2022-07-16] MEDS: MIDODRINE HCL 10 MG TAB PO SCH (18:17)
[2022-07-16] MEDS: AMITRIPTYLINE HCL 25 MG TAB PO SCH (21:38)
[2022-07-16 21:46] VITALS: BP 164/87
[2022-07-17] MEDS: MORPHINE SULFATE INJ 2 MG/ml SYRG IV PRN ×3 (00:32→20:53)
[2022-07-17 05:00] VITALS: BP 120/77
[2022-07-17] MEDS: MIDODRINE HCL 10 MG TAB PO SCH ×3 (05:30→18:13)
[2022-07-17] MEDS: LEVOTHYROXINE SODIUM 112 MCG TAB PO SCH (06:55)
[2022-07-17] MEDS: LEVOTHYROXINE SODIUM 25 MCG TAB PO SCH (06:56)
[2022-07-17 09:00] VITALS: BP 146/89
[2022-07-17] MEDS: NEOMYCIN-BACITRACIN-POLYM 15GM TOP OINT TOP SCH ×2 (10:00→21:04)
[2022-07-17] MEDS: AMIODARONE HCL 200 MG TAB PO SCH ×2 (10:39→21:03)
[2022-07-17] MEDS: HYDROCORTISONE SOD SUCC 100 MG/2ML INJ VIAL IV SCH ×2 (10:39→21:03)
[2022-07-17] MEDS: ERTAPENEM SOD INJ 1 GM in SODIUM CHL 0.9% 50 ML IV SCH (10:39)
[2022-07-17] MEDS: ENOXAPARIN SOD 40 MG/0.4 ML SYRINGE SC SCH (10:39)
[2022-07-17] MEDS: METOPROLOL TARTRATE 25 MG TAB PO SCH ×2 (10:40→21:03)
[2022-07-17] MEDS: Ensure HIGH Protein Chocolate 8oz Bottle PO SCH ×2 (10:41→18:12)
[2022-07-17 13:00] VITALS: BP 139/78
[2022-07-17] MEDS: AMOXICILLIN TRIHYDRATE 250 MG CAP PO SCH ×2 (14:41→21:03)
[2022-07-17] MEDS: HYDROcodone-ACET 5/325MG TAB PO PRN (14:42)
[2022-07-17 16:53] VITALS: BP 148/66
[2022-07-17] MEDS: SOD CHL 0.45% 1,000 ML IV SCH (18:13)
[2022-07-17] MEDS: AMITRIPTYLINE HCL 25 MG TAB PO SCH (21:04)
[2022-07-17 21:53] VITALS: BP 155/91
[2022-07-18] MEDS: MORPHINE SULFATE INJ 2 MG/ml SYRG IV PRN (04:35)
[2022-07-18] MEDS: SOD CHL 0.45% 1,000 ML IV SCH ×2 (05:09→17:25)
[2022-07-18] MEDS: LEVOTHYROXINE SODIUM 25 MCG TAB PO SCH (06:40)
[2022-07-18] MEDS: LEVOTHYROXINE SODIUM 112 MCG TAB PO SCH (06:40)
[2022-07-18] MEDS: AMOXICILLIN TRIHYDRATE 250 MG CAP PO SCH ×3 (06:40→21:14)
[2022-07-18] MEDS: MIDODRINE HCL 10 MG TAB PO SCH ×2 (06:41→12:00)
[2022-07-18 09:00] VITALS: BP 171/96
[2022-07-18] MEDS: HYDROCORTISONE SOD SUCC 100 MG/2ML INJ VIAL IV SCH ×2 (09:35→21:19)
[2022-07-18] MEDS: ENOXAPARIN SOD 40 MG/0.4 ML SYRINGE SC SCH (09:35)
[2022-07-18] MEDS: AMIODARONE HCL 200 MG TAB PO SCH ×2 (09:35→21:13)
[2022-07-18] MEDS: Ensure HIGH Protein Chocolate 8oz Bottle PO SCH ×2 (09:35→18:07)
[2022-07-18] MEDS: ERTAPENEM SOD INJ 1 GM in SODIUM CHL 0.9% 50 ML IV SCH (09:44)
[2022-07-18] MEDS: METOPROLOL TARTRATE 25 MG TAB PO SCH ×2 (09:50→21:14)
[2022-07-18] MEDS: NEOMYCIN-BACITRACIN-POLYM 15GM TOP OINT TOP SCH ×2 (09:50→21:15)
[2022-07-18] MEDS ORDERED: MIDODRINE HCL 10 MG TAB PO PRN (12:45)
[2022-07-18 13:00] VITALS: BP 166/91
[2022-07-18] MEDS: HYDROcodone-ACET 5/325MG TAB PO PRN ×2 (13:01→22:39)
[2022-07-18 16:50] VITALS: BP 158/90
[2022-07-18] MEDS: AMITRIPTYLINE HCL 25 MG TAB PO SCH (21:23)
[2022-07-19 04:45] VITALS: BP 160/91
[2022-07-19] MEDS: LEVOTHYROXINE SODIUM 112 MCG TAB PO SCH (05:31)
[2022-07-19] MEDS: AMOXICILLIN TRIHYDRATE 250 MG CAP PO SCH ×3 (05:32→22:22)
[2022-07-19] MEDS: LEVOTHYROXINE SODIUM 25 MCG TAB PO SCH (05:32)
[2022-07-19] MEDS: MORPHINE SULFATE INJ 2 MG/ml SYRG IV PRN ×2 (05:33→22:24)
[2022-07-19] MEDS: LACTULOSE 20Gm/30ML SOLN PO SCH (09:03)
[2022-07-19] MEDS: ENOXAPARIN SOD 40 MG/0.4 ML SYRINGE SC SCH (09:03)
[2022-07-19] MEDS: HYDROcodone-ACET 5/325MG TAB PO PRN ×2 (09:03→18:04)
[2022-07-19] MEDS: HYDROCORTISONE SOD SUCC 100 MG/2ML INJ VIAL IV SCH (09:03)
[2022-07-19] MEDS: METOPROLOL TARTRATE 25 MG TAB PO SCH ×2 (09:04→22:23)
[2022-07-19] MEDS: AMIODARONE HCL 200 MG TAB PO SCH ×2 (09:04→22:22)
[2022-07-19] MEDS: ERTAPENEM SOD INJ 1 GM in SODIUM CHL 0.9% 50 ML IV SCH (09:04)
[2022-07-19 09:08] VITALS: BP 138/76
[2022-07-19] MEDS: NEOMYCIN-BACITRACIN-POLYM 15GM TOP OINT TOP SCH ×2 (10:00→22:22)
[2022-07-19] MEDS: SOD CHL 0.45% 1,000 ML IV SCH (10:07)
[2022-07-19] MEDS: Ensure HIGH Protein Chocolate 8oz Bottle PO SCH ×2 (10:07→18:04)
[2022-07-19] MEDS: traMADol HCL 50 MG TAB PO PRN (12:31)
[2022-07-19 13:00] VITALS: BP 147/88
[2022-07-19 17:00] VITALS: BP 146/74
[2022-07-19 22:00] VITALS: BP 145/86
[2022-07-19] MEDS: AMITRIPTYLINE HCL 25 MG TAB PO SCH (22:00)
[2022-07-19] MEDS: HYDROCORTISONE 10 MG TAB PO SCH (22:22)
[2022-07-20 05:00] VITALS: BP 145/92
[2022-07-20] MEDS: AMOXICILLIN TRIHYDRATE 250 MG CAP PO SCH ×3 (05:51→22:25)
[2022-07-20] MEDS: LEVOTHYROXINE SODIUM 112 MCG TAB PO SCH (05:51)
[2022-07-20] MEDS: LEVOTHYROXINE SODIUM 25 MCG TAB PO SCH (05:51)
[2022-07-20 07:07] LABS: Calcium 7.2 mg/dL (8.5-10.1); Potassium 3.2 mmol/L (3.5-5.1)
[2022-07-20 08:56] VITALS: BP 147/87
[2022-07-20] MEDS: ERTAPENEM SOD INJ 1 GM in SODIUM CHL 0.9% 50 ML IV SCH (10:58)
[2022-07-20] MEDS: ENOXAPARIN SOD 40 MG/0.4 ML SYRINGE SC SCH (10:58)
[2022-07-20] MEDS: AMIODARONE HCL 200 MG TAB PO SCH ×2 (10:59→22:25)
[2022-07-20] MEDS: HYDROcodone-ACET 5/325MG TAB PO PRN ×2 (10:59→18:00)
[2022-07-20] MEDS: LACTULOSE 20Gm/30ML SOLN PO SCH (11:00)
[2022-07-20] MEDS: NEOMYCIN-BACITRACIN-POLYM 15GM TOP OINT TOP SCH ×2 (11:00→22:26)
[2022-07-20] MEDS: Ensure HIGH Protein Chocolate 8oz Bottle PO SCH ×2 (11:00→18:00)
[2022-07-20] MEDS: METOPROLOL TARTRATE 25 MG TAB PO SCH ×2 (11:00→22:27)
[2022-07-20] MEDS ORDERED: POTASSIUM CHL 20 Meq TABLET PO ONE (12:45)
[2022-07-20] MEDS ORDERED: SERTRALINE HCL 50 MG TAB PO ONE (12:45)
[2022-07-20 13:01] VITALS: BP 159/85
[2022-07-20 17:14] VITALS: BP 151/90
[2022-07-20] MEDS: HYDROCORTISONE 10 MG TAB PO SCH ×2 (18:01→23:04)
[2022-07-20 22:00] VITALS: BP 155/95
[2022-07-20] MEDS: AMITRIPTYLINE HCL 25 MG TAB PO SCH (22:26)
[2022-07-20] MEDS: MORPHINE SULFATE INJ 2 MG/ml SYRG IV PRN (22:29)
[2022-07-21 05:00] VITALS: BP 145/87
[2022-07-21] MEDS: LEVOTHYROXINE SODIUM 112 MCG TAB PO SCH (06:05)
[2022-07-21] MEDS: AMOXICILLIN TRIHYDRATE 250 MG CAP PO SCH ×3 (06:05→22:12)
[2022-07-21] MEDS: LEVOTHYROXINE SODIUM 25 MCG TAB PO SCH (06:06)
[2022-07-21 07:01] LABS: BUN/Creatinine Ratio 15.4; Calcium 7.5 mg/dL (8.5-10.1); Potassium 3.4 mmol/L (3.5-5.1)
[2022-07-21] MEDS: Ensure HIGH Protein Chocolate 8oz Bottle PO SCH ×2 (08:00→18:00)
[2022-07-21 08:30] VITALS: BP 132/70
[2022-07-21] MEDS: HYDROCORTISONE 10 MG TAB PO SCH ×2 (10:00→22:13)
[2022-07-21] MEDS: NEOMYCIN-BACITRACIN-POLYM 15GM TOP OINT TOP SCH ×2 (10:00→22:14)
[2022-07-21] MEDS: ENOXAPARIN SOD 40 MG/0.4 ML SYRINGE SC SCH (10:00)
[2022-07-21] MEDS: SERTRALINE HCL 50 MG TAB PO SCH (10:00)
[2022-07-21] MEDS: LACTULOSE 20Gm/30ML SOLN PO SCH (10:00)
[2022-07-21] MEDS: AMIODARONE HCL 200 MG TAB PO SCH ×2 (10:00→22:12)
[2022-07-21] MEDS: ERTAPENEM SOD INJ 1 GM in SODIUM CHL 0.9% 50 ML IV SCH (10:00)
[2022-07-21] MEDS: METOPROLOL TARTRATE 25 MG TAB PO SCH ×2 (10:00→22:14)
[2022-07-21] MEDS ORDERED: POTASSIUM CHL 20 Meq TABLET PO ONE (12:00)
[2022-07-21 17:03] VITALS: BP 162/89
[2022-07-21 22:00] VITALS: BP 159/93
[2022-07-21] MEDS: AMITRIPTYLINE HCL 25 MG TAB PO SCH (22:13)
[2022-07-21] MEDS: MORPHINE SULFATE INJ 2 MG/ml SYRG IV PRN (22:15)
[2022-07-22 05:09] LABS: Basophils # (auto) 0 10 ^3/uL (0-0.2); Basophils % (auto) 0.1 % (0.0-2.0); Eosinophils # (auto) 0.1 10 ^3/uL (0-0.8); Eosinophils % (auto) 1.6 % (0.0-7.0); Hematocrit 27.3 % (41.0-53.0); Hemoglobin 9.1 g/dL (13.5-17.5); Lymphocytes # (auto) 0.5 10 ^3/uL (0.4-5.4); Lymphocytes % (auto) 6.4 % (10.0-50.0); Mean Corpuscular Hemoglobin 27.9 pg (28.0-32.0); Mean Corpuscular Hgb Conc. 33.4 g/dL (32.0-36.0); Mean Corpuscular Volume 83.3 fL (80.0-100.0); Monocytes # (auto) 0.4 10 ^3/uL (0-1.3); Monocytes % (auto) 5.2 % (0.0-12.0); Neutrophils # (auto) 6.2 10 ^3/uL (1.6-8.6); Neutrophils % (auto) 86.7 % (37.0-80.0); Red Blood Cells 3.28 10^6/uL (4.5-5.90); Red Cell Distribution Width 17.6 % (11.8-14.3); White Blood Cell 7.2 10^3/uL (4.4-10.8)
[2022-07-22 05:12] VITALS: BP 158/83
[2022-07-22 05:28] LABS: Calcium 7.4 mg/dL (8.5-10.1); Potassium 3.1 mmol/L (3.5-5.1)
[2022-07-22] MEDS: LEVOTHYROXINE SODIUM 112 MCG TAB PO SCH (06:26)
[2022-07-22] MEDS: AMOXICILLIN TRIHYDRATE 250 MG CAP PO SCH ×3 (06:26→22:28)
[2022-07-22] MEDS: LEVOTHYROXINE SODIUM 25 MCG TAB PO SCH (06:27)
[2022-07-22 09:00] VITALS: BP 165/97
[2022-07-22] MEDS: ENOXAPARIN SOD 40 MG/0.4 ML SYRINGE SC SCH (09:37)
[2022-07-22] MEDS: SERTRALINE HCL 50 MG TAB PO SCH (09:37)
[2022-07-22] MEDS: AMIODARONE HCL 200 MG TAB PO SCH ×2 (09:37→22:28)
[2022-07-22] MEDS: METOPROLOL TARTRATE 25 MG TAB PO SCH ×2 (09:38→22:26)
[2022-07-22] MEDS: LACTULOSE 20Gm/30ML SOLN PO SCH (09:38)
[2022-07-22] MEDS: HYDROCORTISONE 10 MG TAB PO SCH ×2 (09:41→22:27)
[2022-07-22] MEDS: Ensure HIGH Protein Chocolate 8oz Bottle PO SCH ×4 (09:46→18:13)
[2022-07-22] MEDS ORDERED: POTASSIUM CHL 20 Meq TABLET PO ONE (12:30)
[2022-07-22] MEDS: NEOMYCIN-BACITRACIN-POLYM 15GM TOP OINT TOP SCH ×2 (12:36→22:00)
[2022-07-22] MEDS: ERTAPENEM SOD INJ 1 GM in SODIUM CHL 0.9% 50 ML IV SCH (12:36)
[2022-07-22 13:00] VITALS: BP_SYST 107; BP_SYST 113; BP_SYST 166; BP_DIAS 65; BP_DIAS 89
[2022-07-22] MEDS ORDERED: BISMUTH SUBSALICYLATE 262 MG CHEW PO PRN (16:45)
[2022-07-22 16:48] VITALS: BP 167/85
[2022-07-22] MEDS: MORPHINE SULFATE INJ 2 MG/ml SYRG IV PRN (20:28)
[2022-07-22 22:00] VITALS: BP 166/87
[2022-07-22] MEDS: AMITRIPTYLINE HCL 25 MG TAB PO SCH (22:00)
[2022-07-23 05:23] VITALS: BP 150/76
[2022-07-23] MEDS: AMOXICILLIN TRIHYDRATE 250 MG CAP PO SCH ×2 (06:22→13:48)
[2022-07-23] MEDS: LEVOTHYROXINE SODIUM 112 MCG TAB PO SCH (06:22)
[2022-07-23] MEDS: LEVOTHYROXINE SODIUM 25 MCG TAB PO SCH (06:22)
[2022-07-23 07:33] LABS: Potassium 3.3 mmol/L (3.5-5.1)
[2022-07-23 07:44] LABS: BUN/Creatinine Ratio 16.7; Calcium 7.3 mg/dL (8.5-10.1)
[2022-07-23] MEDS: Ensure HIGH Protein Chocolate 8oz Bottle PO SCH ×2 (08:00→18:16)
[2022-07-23 09:00] VITALS: BP 170/94
[2022-07-23] MEDS: ENOXAPARIN SOD 40 MG/0.4 ML SYRINGE SC SCH (09:45)
[2022-07-23] MEDS: ERTAPENEM SOD INJ 1 GM in SODIUM CHL 0.9% 50 ML IV SCH (09:45)
[2022-07-23] MEDS: HYDROCORTISONE 10 MG TAB PO SCH ×2 (09:45→22:08)
[2022-07-23] MEDS: AMIODARONE HCL 200 MG TAB PO SCH ×2 (09:46→21:48)
[2022-07-23] MEDS: METOPROLOL TARTRATE 25 MG TAB PO SCH ×2 (09:47→21:48)
[2022-07-23] MEDS: LACTULOSE 20Gm/30ML SOLN PO SCH (09:48)
[2022-07-23] MEDS: SERTRALINE HCL 50 MG TAB PO SCH (09:49)
[2022-07-23] MEDS: NEOMYCIN-BACITRACIN-POLYM 15GM TOP OINT TOP SCH ×2 (10:50→22:09)
[2022-07-23] MEDS ORDERED: NIFEdipine 10 MG CAP PO ONE (11:45)
[2022-07-23 13:00] VITALS: BP 173/93
[2022-07-23] MEDS: MORPHINE SULFATE INJ 2 MG/ml SYRG IV PRN ×2 (14:20→21:47)
[2022-07-23] MEDS ORDERED: POTASSIUM CHL 20 Meq TABLET PO ONE (15:15)
[2022-07-23 16:58] VITALS: BP 103/54
[2022-07-23] MEDS: AMPICILLIN INJ 1 GM in SODIUM CHL 0.9% 50 ML IV SCH ×2 (18:30→23:58)
[2022-07-23 20:00] VITALS: BP 105/55
[2022-07-23] MEDS: AMITRIPTYLINE HCL 25 MG TAB PO SCH (21:48)
[2022-07-24 05:02] VITALS: BP 120/64
[2022-07-24] MEDS: AMPICILLIN INJ 1 GM in SODIUM CHL 0.9% 50 ML IV SCH ×3 (06:07→19:29)
[2022-07-24] MEDS: LEVOTHYROXINE SODIUM 25 MCG TAB PO SCH (06:39)
[2022-07-24] MEDS: LEVOTHYROXINE SODIUM 112 MCG TAB PO SCH (06:39)
[2022-07-24] MEDS: HYDROcodone-ACET 5/325MG TAB PO PRN ×2 (06:47→17:13)
[2022-07-24 06:52] LABS: Basophils # (auto) 0 10 ^3/uL (0-0.2); Basophils % (auto) 0.1 % (0.0-2.0); Eosinophils # (auto) 0 10 ^3/uL (0-0.8); Eosinophils % (auto) 0.4 % (0.0-7.0); Hematocrit 27.7 % (41.0-53.0); Hemoglobin 9.3 g/dL (13.5-17.5); Lymphocytes # (auto) 0.6 10 ^3/uL (0.4-5.4); Lymphocytes % (auto) 9.4 % (10.0-50.0); Mean Corpuscular Hemoglobin 28.2 pg (28.0-32.0); Mean Corpuscular Hgb Conc. 33.4 g/dL (32.0-36.0); Mean Corpuscular Volume 84.5 fL (80.0-100.0); Monocytes # (auto) 0.3 10 ^3/uL (0-1.3); Monocytes % (auto) 5.5 % (0.0-12.0); Neutrophils # (auto) 4.9 10 ^3/uL (1.6-8.6); Neutrophils % (auto) 84.6 % (37.0-80.0); Nucleated Red Blood Cells % 0.1 %; Red Blood Cells 3.28 10^6/uL (4.5-5.90); Red Cell Distribution Width 17.6 % (11.8-14.3); White Blood Cell 5.8 10^3/uL (4.4-10.8)
[2022-07-24 06:57] LABS: Calcium 7.4 mg/dL (8.5-10.1); Potassium 3.5 mmol/L (3.5-5.1)
[2022-07-24 07:01] LABS: BUN/Creatinine Ratio 17.2; Magnesium 1.9 mg/dL (1.6-2.6); Phosphorus 2.9 mg/dL (2.5-4.90)
[2022-07-24] MEDS: Ensure HIGH Protein Chocolate 8oz Bottle PO SCH ×2 (08:00→18:29)
[2022-07-24 08:54] VITALS: BP 127/66
[2022-07-24] MEDS: HYDROCORTISONE 10 MG TAB PO SCH ×2 (09:20→22:28)
[2022-07-24] MEDS: AMIODARONE HCL 200 MG TAB PO SCH ×2 (09:21→22:27)
[2022-07-24] MEDS: METOPROLOL TARTRATE 25 MG TAB PO SCH ×2 (09:22→22:27)
[2022-07-24] MEDS: SERTRALINE HCL 50 MG TAB PO SCH (09:22)
[2022-07-24] MEDS: LACTULOSE 20Gm/30ML SOLN PO SCH (09:22)
[2022-07-24] MEDS: ENOXAPARIN SOD 40 MG/0.4 ML SYRINGE SC SCH (09:23)
[2022-07-24] MEDS: NEOMYCIN-BACITRACIN-POLYM 15GM TOP OINT TOP SCH ×2 (10:00→22:00)
[2022-07-24] MEDS: ERTAPENEM SOD INJ 1 GM in SODIUM CHL 0.9% 50 ML IV SCH (11:35)
[2022-07-24 13:00] VITALS: BP 155/81
[2022-07-24 16:39] VITALS: BP 130/82
[2022-07-24] MEDS: MORPHINE SULFATE INJ 2 MG/ml SYRG IV PRN (19:47)
[2022-07-24 20:00] VITALS: BP 156/77
[2022-07-24 22:00] VITALS: BP 156/77
[2022-07-24] MEDS: AMITRIPTYLINE HCL 25 MG TAB PO SCH (22:00)
[2022-07-25] VITALS (7 sets, daily range): BP systolic 142–164; BP diastolic 82–92
[2022-07-25] MEDS: MORPHINE SULFATE INJ 2 MG/ml SYRG IV PRN ×3 (00:12→20:40)
[2022-07-25] MEDS: AMPICILLIN INJ 1 GM in SODIUM CHL 0.9% 50 ML IV SCH ×5 (00:12→23:30)
[2022-07-25] MEDS: LEVOTHYROXINE SODIUM 112 MCG TAB PO SCH (06:45)
[2022-07-25] MEDS: LEVOTHYROXINE SODIUM 25 MCG TAB PO SCH (06:45)
[2022-07-25] MEDS: Ensure HIGH Protein Chocolate 8oz Bottle PO SCH ×2 (08:00→18:00)
[2022-07-25] MEDS: LACTULOSE 20Gm/30ML SOLN PO SCH (09:29)
[2022-07-25] MEDS: AMIODARONE HCL 200 MG TAB PO SCH ×2 (09:30→21:22)
[2022-07-25] MEDS: SERTRALINE HCL 50 MG TAB PO SCH (09:30)
[2022-07-25] MEDS: METOPROLOL TARTRATE 25 MG TAB PO SCH ×2 (09:31→21:31)
[2022-07-25] MEDS: ENOXAPARIN SOD 40 MG/0.4 ML SYRINGE SC SCH (09:32)
[2022-07-25] MEDS: HYDROCORTISONE 10 MG TAB PO SCH ×2 (09:32→21:33)
[2022-07-25] MEDS: ERTAPENEM SOD INJ 1 GM in SODIUM CHL 0.9% 50 ML IV SCH (10:06)
[2022-07-25] MEDS: NEOMYCIN-BACITRACIN-POLYM 15GM TOP OINT TOP SCH ×2 (10:06→21:21)
[2022-07-25] MEDS: TOLTERODINE TARTRATE 1 MG TAB PO SCH (21:22)
[2022-07-25] MEDS: AMITRIPTYLINE HCL 25 MG TAB PO SCH (21:32)
[2022-07-26 05:00] VITALS: BP 154/86
[2022-07-26] MEDS: LEVOTHYROXINE SODIUM 25 MCG TAB PO SCH (06:04)
[2022-07-26] MEDS: AMPICILLIN INJ 1 GM in SODIUM CHL 0.9% 50 ML IV SCH ×3 (06:04→18:38)
[2022-07-26] MEDS: LEVOTHYROXINE SODIUM 112 MCG TAB PO SCH (06:04)
[2022-07-26] MEDS: Ensure HIGH Protein Chocolate 8oz Bottle PO SCH ×2 (08:00→18:18)
[2022-07-26 09:01] VITALS: BP 163/89
[2022-07-26] MEDS: ERTAPENEM SOD INJ 1 GM in SODIUM CHL 0.9% 50 ML IV SCH (09:40)
[2022-07-26] MEDS: ENOXAPARIN SOD 40 MG/0.4 ML SYRINGE SC SCH (09:42)
[2022-07-26] MEDS: METOPROLOL TARTRATE 25 MG TAB PO SCH ×2 (09:44→21:23)
[2022-07-26] MEDS: SERTRALINE HCL 50 MG TAB PO SCH (09:45)
[2022-07-26] MEDS: HYDROCORTISONE 10 MG TAB PO SCH ×2 (09:45→21:54)
[2022-07-26] MEDS: TOLTERODINE TARTRATE 1 MG TAB PO SCH ×2 (09:45→21:23)
[2022-07-26] MEDS: AMIODARONE HCL 200 MG TAB PO SCH ×2 (09:45→21:23)
[2022-07-26] MEDS: LACTULOSE 20Gm/30ML SOLN PO SCH (09:59)
[2022-07-26] MEDS: NEOMYCIN-BACITRACIN-POLYM 15GM TOP OINT TOP SCH ×2 (09:59→21:55)
[2022-07-26 12:43] VITALS: BP 166/88
[2022-07-26 17:36] VITALS: BP_SYST 126; BP_SYST 84; BP_SYST 91; BP_DIAS 56; BP_DIAS 57; BP_DIAS 68
[2022-07-26 20:20] VITALS: BP 144/80
[2022-07-26] MEDS: MORPHINE SULFATE INJ 2 MG/ml SYRG IV PRN (21:52)
[2022-07-26 22:00] VITALS: BP 144/80
[2022-07-27] MEDS: AMPICILLIN INJ 1 GM in SODIUM CHL 0.9% 50 ML IV SCH ×4 (01:06→18:00)
[2022-07-27 05:00] VITALS: BP 163/84
[2022-07-27 06:42] LABS: Basophils # (auto) 0 10 ^3/uL (0-0.2); Basophils % (auto) 0.2 % (0.0-2.0); Eosinophils # (auto) 0.1 10 ^3/uL (0-0.8); Eosinophils % (auto) 1.8 % (0.0-7.0); Hematocrit 29.5 % (41.0-53.0); Hemoglobin 9.8 g/dL (13.5-17.5); Lymphocytes # (auto) 0.9 10 ^3/uL (0.4-5.4); Lymphocytes % (auto) 14.1 % (10.0-50.0); Mean Corpuscular Hgb Conc. 33.2 g/dL (32.0-36.0); Mean Corpuscular Volume 84.3 fL (80.0-100.0); Monocytes # (auto) 0.5 10 ^3/uL (0-1.3); Monocytes % (auto) 7.4 % (0.0-12.0); Neutrophils # (auto) 5.1 10 ^3/uL (1.6-8.6); Neutrophils % (auto) 76.5 % (37.0-80.0); Nucleated Red Blood Cells % 0.1 %; White Blood Cell 6.7 10^3/uL (4.4-10.8)
[2022-07-27 06:52] LABS: BUN/Creatinine Ratio 16.9; Calcium 7.5 mg/dL (8.5-10.1)
[2022-07-27 06:57] LABS: Potassium 2.9 mmol/L (3.5-5.1)
[2022-07-27] MEDS: LEVOTHYROXINE SODIUM 112 MCG TAB PO SCH (07:07)
[2022-07-27] MEDS: LEVOTHYROXINE SODIUM 25 MCG TAB PO SCH (07:07)
[2022-07-27 08:00] VITALS: BP 158/83
[2022-07-27 08:44] VITALS: BP 158/83
[2022-07-27] MEDS: TOLTERODINE TARTRATE 1 MG TAB PO SCH ×2 (09:40→22:21)
[2022-07-27] MEDS: ERTAPENEM SOD INJ 1 GM in SODIUM CHL 0.9% 50 ML IV SCH (09:40)
[2022-07-27] MEDS: METOPROLOL TARTRATE 25 MG TAB PO SCH ×2 (09:41→22:24)
[2022-07-27] MEDS: ENOXAPARIN SOD 40 MG/0.4 ML SYRINGE SC SCH (09:41)
[2022-07-27] MEDS: AMIODARONE HCL 200 MG TAB PO SCH ×2 (09:41→22:20)
[2022-07-27] MEDS: SERTRALINE HCL 50 MG TAB PO SCH (09:41)
[2022-07-27] MEDS: LACTULOSE 20Gm/30ML SOLN PO SCH (09:42)
[2022-07-27] MEDS: NEOMYCIN-BACITRACIN-POLYM 15GM TOP OINT TOP SCH ×2 (09:49→22:24)
[2022-07-27 10:34] LABS: Urine Bacteria NONE SEEN /hpf (None Seen); Urine Blood 2+ /uL (Negative); Urine Mucus FEW (None Seen); Urine Specific Gravity 1.013 (1.001-1.035); Urine WBC 11 /hpf (0 - 3)
[2022-07-27] MEDS: HYDROcodone-ACET 5/325MG TAB PO PRN ×2 (11:10→21:26)
[2022-07-27] MEDS: HYDROCORTISONE 10 MG TAB PO SCH ×2 (11:54→22:20)
[2022-07-27] MEDS: Ensure HIGH Protein Chocolate 8oz Bottle PO SCH ×2 (12:22→19:02)
[2022-07-27 12:49] VITALS: BP_SYST 102; BP_SYST 178; BP_SYST 82; BP_DIAS 48; BP_DIAS 62; BP_DIAS 94
[2022-07-27] MEDS ORDERED: POTASSIUM CHL 20 Meq TABLET PO ONE (14:45)
[2022-07-27] MEDS ORDERED: POTASSIUM CHLORIDE 40 MEQ, LIDOCAINE 1% (LOCAL ANESTH.) 4 ML in SODIUM CHL 0.9% 250 ML IV ONE (15:15)
[2022-07-27 17:00] VITALS: BP 166/92
[2022-07-27 20:00] VITALS: BP 158/83
[2022-07-28] MEDS: HYDROcodone-ACET 5/325MG TAB PO PRN (00:32)
[2022-07-28 00:44] VITALS: BP 165/90
[2022-07-28] MEDS: AMPICILLIN INJ 1 GM in SODIUM CHL 0.9% 50 ML IV SCH ×4 (06:00→12:44)
[2022-07-28] MEDS: LEVOTHYROXINE SODIUM 112 MCG TAB PO SCH (06:32)
[2022-07-28] MEDS: LEVOTHYROXINE SODIUM 25 MCG TAB PO SCH (06:32)
[2022-07-28 07:28] LABS: BUN/Creatinine Ratio 18.3; Calcium 7.3 mg/dL (8.5-10.1); Potassium 3.9 mmol/L (3.5-5.1)
[2022-07-28 07:50] VITALS: BP 147/82
[2022-07-28] MEDS: NEOMYCIN-BACITRACIN-POLYM 15GM TOP OINT TOP SCH (10:00)
[2022-07-28] MEDS: LACTULOSE 20Gm/30ML SOLN PO SCH (10:00)
[2022-07-28] MEDS: Ensure HIGH Protein Chocolate 8oz Bottle PO SCH (11:07)
[2022-07-28] MEDS: ERTAPENEM SOD INJ 1 GM in SODIUM CHL 0.9% 50 ML IV SCH (11:07)
[2022-07-28] MEDS: AMIODARONE HCL 200 MG TAB PO SCH (11:12)
[2022-07-28] MEDS: SERTRALINE HCL 50 MG TAB PO SCH (11:12)
[2022-07-28] MEDS: TOLTERODINE TARTRATE 1 MG TAB PO SCH (11:13)
[2022-07-28] MEDS: METOPROLOL TARTRATE 25 MG TAB PO SCH (11:18)
[2022-07-28] MEDS: ENOXAPARIN SOD 40 MG/0.4 ML SYRINGE SC SCH (11:18)
[2022-07-28] MEDS: HYDROCORTISONE 10 MG TAB PO SCH (12:44)
[2022-07-28 12:55] VITALS: BP 160/87
[2022-07-28] MEDS ORDERED: SERT50TA PO (14:11)
[2022-07-28] MEDS ORDERED: MET25T PO (14:11)
[2022-07-28 16:40] VITALS: BP 172/92
== END 2022-07-28 18:58 | disposition home health service (06) | DRG 665 ==
LOC: ER 09:53 → EDBD 09:53 → TELE 14:30 → TELE-WESTW 07-13 21:15
PROVIDERS: ADMIT Registered Nurse; ATTEND Internal Medicine
PROC: 0TCB8ZZ Extirpation of Matter from Bladder, Via Natural or Artificial Opening Endoscopic (ICD-10-PCS; 2022-07-15)
PROC: 0T9B70Z Drainage of Bladder with Drainage Device, Via Natural or Artificial Opening (ICD-10-PCS; 2022-07-15)
PROC: 0V508ZZ Destruction of Prostate, Via Natural or Artificial Opening Endoscopic (ICD-10-PCS; principal; 2022-07-15 16:03)
DX: N21.0 Calculus in bladder (principal); E43 Unspecified severe protein-calorie malnutrition; N39.0 Urinary tract infection, site not specified; E87.0 Hyperosmolality and hypernatremia; N40.1 Benign prostatic hyperplasia with lower urinary tract symptoms; I95.1 Orthostatic hypotension; D63.8 Anemia in other chronic diseases classified elsewhere; E87.6 Hypokalemia; B96.4 Proteus (mirabilis) (morganii) as the cause of diseases classified elsewhere; Z20.822 Contact with and (suspected) exposure to COVID-19; R33.8 Other retention of urine; R00.1 Bradycardia, unspecified; R31.9 Hematuria, unspecified; M10.9 Gout, unspecified; E03.9 Hypothyroidism, unspecified; I48.0 Paroxysmal atrial fibrillation; I10 Essential (primary) hypertension; J44.9 Chronic obstructive pulmonary disease, unspecified; Z79.899 Other long term (current) drug therapy; Z74.01 Bed confinement status; Z86.711 Personal history of pulmonary embolism; Z95.0 Presence of cardiac pacemaker; Z68.28 Body mass index [BMI] 28.0-28.9, adult; B96.89 Other specified bacterial agents as the cause of diseases classified elsewhere; B95.2 Enterococcus as the cause of diseases classified elsewhere
CPT/HCPCS: 36415; 70450; 71045; 71250; 74178; 80048; 80053; 80061; 80307; 81001; 82533; 82607; 82784; 83036; 83735; 83883; 84100; 84132; 84155; 84165; 84443; 84484; 85025; 85610; 85730; 86334; 87081; 87086; 87088; 87186; 87426; 93005; 97110; 97116; 97163; 97530; 99291; G0378; J1100; J1335; J2001; J2405; J2704; J3480